=== PATIENT | female | born 1925 | race Caucasian/White ===

== ENCOUNTER 2016-07-04 13:49 | Emergency (ER) | payer MEDICARE, OTHER ==
[~2016-07-04] VITALS: Ht 149.9 cm; Wt 73.0 kg
[~2016-07-04 13:49] MED LIST: ALBU8.5H2 INHALATION; BENZ100C8 PO; LISI1TAB7 PO; METF500T4 PO; SIMV5TAB7 PO; WARF1TAB6 PO
[2016-07-04 13:52] VITALS: BP 132/66; PULSE 70; RESP 45; O2SAT 96
--- NOTE | 2016-07-04 14:06 | ED.REPORT ---
HPI-General Illness Date of Service Jul 04, 2016 ED Provider: Jose Goddard Patient is an 89 year old female on Warfarin who presents to the ED complaining of L leg swelling onset last night. Associated symptoms include increased trouble breathing and L leg weeping. Her dieretic medication was recently reduced. denies dysuria, hematuria, chest pain, or any other symptoms. Nursing Notes Stated Complaint: POSS CONGESTIVE HEART FAILURE Chief Complaint: Extremity Trauma Nursing Notes Reviewed: Yes Allergies: Coded Allergies: Penicillins (Verified Adverse Reaction, Mild, Diarrhea, 10/01/15) Scheduled Albuterol HFA (Proair HFA) 8.5 Gm Hfa.aer.ad 2 PUFFS INHALATION Q4H Benzonatate (Benzonatate) 100 Mg Capsule 100 MG PO TID Lisinopril / HCTZ 10-12.5 mg (Lisinopril / HCTZ 10-12.5 mg) 1 Each Tablet 1 EACH PO DAILY EVERY 2 DAYS Metformin (Metformin) 500 Mg Tablet 500 MG PO BID Simvastatin (Simvastatin) 5 Mg Tablet 5 MG PO HS Warfarin Sodium (Warfarin Sodium) 1 Mg Tablet 0.5 MG PO DAILY General Time Seen by MD: 14:05 Chief Complaint Other (Extremity swelling) Hx Obtained From: Patient, Daughter Sudden in Onset?: Yes Onset Occurred: Yesterday Symptom Duration: Since onset Past Medical History Past Medical History Notes: Recently moved to [place] from [place], limited medical history Past Medical History heart murmur nonhodgkins lymphoma - 16 years ago on Warfarin - pt unsure why (EKG in ED shows atrial fibrillation) Chronic Renal disease Reports: Congestive heart failure, Diabetes mellitus, Hyperlipidemia, Hypertension Past Surgical History valve replacement x2 Reports: Appendectomy, Hysterectomy Reports: Pacemaker insertion Social History Recently moved to [place] from [place] Other Social History: Good social support, Local resident Ambulatory Status Independent Review of Systems Full Review of Systems Respiratory: Reports: Shortness of breath Cardiovascular: Denies: Chest pain Female: Denies: Dysuria, Hematuria Musculoskeletal: Reports: Extremity swelling (L leg swelling, with weeping ) Complete sys rev & neg: except as marked. Physical Exam Vital Signs Vital Signs Date Time Temp Pulse Resp B/P Pulse Ox O2 Delivery O2 Flow Rate FiO2 07/04/16 13:52 36.4 70 45 132/66 96 Room Air Initial VS: Reviewed General/Constitutional: Well-developed, Well-nourished Head / Eyes: Atraumatic, Normocephalic Neck: Full range of motion Abdomen / GI: Soft, Non-tender Skin: Warm, Dry Neurologic: Alert, Oriented, Nonfocal Psychiatric: Mood/affect normal, Behavior normal, Normal thought content Rales / Rhonchi: Positive: Rales bilateral bases Lower Ext Edema: Positive: Bilateral 2+ 2+ bilateral pedal pulses Right Leg / Calf: Positive: Swelling present... Left Leg / Calf: Positive: Swelling present... Clear weeping fluid L lower leg Does not appear to be infected (no erythema, warmth, or tenderness) Re-Eval/Medical Decision Med Decision/Clinical Course Likely exacerbation of CHF. Awaiting x-ray and laboratory studies, Lasix given, care transferred to Dr. Christensen. Discharge & Departure Shift Change Sign-Out Patient Care Transferred: Yes Discussed Complaint(s): Yes Laboratory Evaluation: Ordered, not yet done Imaging Studies: Ordered, not yet done Transferred care to Dr. Christensen at 1500. Primary Impression: CHF (congestive heart failure) Referrals: OTHER,PHYSICIAN (PCP) Care Transferred to: [facility] Transferred at: 15:00 Scribe Attestation Portions of this note were transcribed by Nicolasa Carl. I, Dr. Goddard personally performed the history, physical exam and medical decision-making; I reviewed and confirmed the accuracy of the information in the transcribed note. Signed by: Nicolasa Carl 07/04/16, 1500 copies to: Dianne Lofton Timothy S DO Jul 04, 2016 14:06 NICOLASA CARL Jul 04, 2016 14:25
[2016-07-04] MEDS ORDERED: Furosemide 10 mg/mL 4 mL Inj IVPUSH ONE (14:25)
--- NOTE | 2016-07-04 15:32 | DRSVH ---
PROCEDURE: X-RAY CHEST ONE VIEW, PORTABLE ([id number]) INDICATIONS: dyspnea TECHNIQUE: One view of the chest was acquired. COMPARISON: [facility], , CHEST 2 VIEW, 05/13/2016, 10:10. FINDINGS: Surgical changes and devices: Postsurgical changes compatible with mitral and aortic valve re A is stable. placement noted. Median sternotomy wires noted. Lungs and pleura: No pleural effusions or pneumothorax. Lungs are clear. Mediastinum: Mediastinal contours appear normal. Heart size is normal. Bones and chest wall: No suspicious bony lesions. Overlying soft tissues appear unremarkable. IMPRESSION: No acute cardiopulmonary disease process. by: Jennifer Thurston MD, PhD on 07/04/2016 at 15:30 Approved by: Jennifer Thurston MD, PhD on 07/04/2016 at 15:30
[2016-07-04 15:38] LABS: BASOPHILS % (AUTO) 0.9 % (0-3); EOSINOPHILS % (AUTO) 2.8 % (0-5); MONOCYTES % (AUTO) 16.4 % (4-12); Mean Corpuscular Hemoglobin 28.4 pg (27.0-35.0); Mean Corpuscular Volume 90.3 fL (81-100); NEUTROPHILS % (AUTO) 71.6 % (40-74); Platelet Count 196 bil/L (150-400)
[2016-07-04 16:07] LABS: Magnesium 1.9 mg/dL (1.6-2.6)
[2016-07-04 16:13] LABS: TROPONIN T < 0.010 ug/L (0.0-0.011)
[2016-07-04 16:15] LABS: INR 3.61 ratio
[2016-07-04] MEDS ORDERED: FURO-129 PO (17:09)
[2016-07-04 18:14] VITALS: BP 150/73; PULSE 98; RESP 20
[2016-07-04 18:31] VITALS: BP 156/73; PULSE 98
== END 2016-07-04 17:40 | disposition home or self-care (01) ==
LOC: SED 13:49
DX: I50.9 Heart failure, unspecified (principal); M79.89 Other specified soft tissue disorders; E11.9 Type 2 diabetes mellitus without complications; E78.5 Hyperlipidemia, unspecified; I10 Essential (primary) hypertension; Z79.01 Long term (current) use of anticoagulants; Z95.0 Presence of cardiac pacemaker; Z79.84 Long term (current) use of oral hypoglycemic drugs; Z88.0 Allergy status to penicillin
CPT/HCPCS: 36415; 71010; 80053; 83735; 83880; 84484; 85025; 85610; 96374; 99285; J1940

== ENCOUNTER 2016-07-24 17:38 | Observation (INO) | payer MEDICARE, OTHER ==
[~2016-07-24] VITALS: Ht 152.4 cm; Wt 68.9 kg
[~2016-07-24 17:38] MED LIST changes: +FURO-129 PO
[2016-07-24 17:43] VITALS: BP 174/46; PULSE 70; RESP 20; O2SAT 96
--- NOTE | 2016-07-24 18:07 | ED.REPORT ---
HPI-Dyspnea / Wheezing Date of Service Jul 24, 2016 ED Provider: Jojo Grier MD This is an 89 year old female with a history of CHF, DM, HTN, hyperlipidemia, on Lasix, anticoagulated on warfarin brought to the ED by EMS complaining of shortness of breath that began 2 weeks ago. Dyspnea is progressively worsening. Reports that Lasix dose was increased 1.5 weeks ago. Associated symptoms include lower extremity swelling, urinary retention, non-productive cough, malaise, constipation, and melena. Denies rhinorrhea, chest pain, fever, chills , abdominal pain, nausea, or vomiting. Denies recent trauma, injury, or surgeries. Denies history of PE. Nursing Notes Stated Complaint: RESPIRATORY DISTRESS Chief Complaint: Respiratory Complaints Nursing Notes Reviewed: Yes Allergies: Coded Allergies: Penicillins (Verified Adverse Reaction, Mild, Diarrhea, 10/01/15) Scheduled ([docusate sodium ]) 50 MG PO DAILY Albuterol HFA (Proair HFA) 8.5 Gm Hfa.aer.ad 2 PUFFS INHALATION Q4H Aspirin Chew (Aspirin Chew) 81 Mg Chew 81 MG PO DAILY Benzonatate (Benzonatate) 100 Mg Capsule 100 MG PO TID Furosemide (Lasix) 20 Mg Tablet 20 MG PO DAILY Guaifenesin (Mucinex) 600 Mg Tablet.er 600 MG PO BID Lisinopril / HCTZ 10-12.5 mg (Lisinopril / HCTZ 10-12.5 mg) 1 Each Tablet 1 EACH PO DAILY EVERY 2 DAYS Metformin (Metformin) 500 Mg Tablet 500 MG PO BID Metoprolol Tartrate (Metoprolol Tartrate) 25 Mg Tablet 25 MG PO BID Multivitamin (Multi Vitamin Daily) 1 Each Tablet 1 EACH PO DAILY Simvastatin (Simvastatin) 10 Mg Tablet 10 MG PO HS Torsemide (Torsemide) 10 Mg Tablet 10 MG PO DAILY Warfarin Sodium (Warfarin Sodium) 5 Mg Tablet 7.5 MG PO DIRECTED warfarin 5 mg tab, 1.5 tabs (7.5mg) PO on Tuesday and Tuesday. Warfarin Sodium (Warfarin Sodium) 5 Mg Tablet 5 MG PO DIRECTED Warfarin 5 mg tab PO 5 days a week, (, TUE, , Sat, Sun) Scheduled PRN Albuterol Sulfate (Ventolin HFA Inhaler) 200 Puff/18 Gm Inhaler 1 PUFF INH Q4 PRN PRN For Wheezing Albuterol Sulfate (Ventolin HFA Inhaler) 200 Puff/18 Gm Inhaler 1 PUFF INH Q4 PRN PRN For Wheezing Bisacodyl (Dulcolax) 5 Mg Tablet.dr 5 MG PO DAILY PRN PRN For Constipation Miscellaneous Medications Acetaminophen (Acetaminophen) 325 Mg Capsule 325 MG PO Ascorbate Calcium (Vitamin C) 500 Mg Tablet 500 MG PO Benzonatate (Benzonatate) 200 Mg Capsule 200 MG PO Calcium Carbonate/Vitamin D3 (Calcium 600 + Vit D3 400 Tab) 600 Mg-400 Tablet 1 EACH PO Cholecalciferol (Vitamin D3) (Vitamin D3) 1,000 Unit Tab.chew 1,000 UNIT PO Diphenhydramine HCl (Children's Benadryl Allergy) 12.5 Mg Tab.chew 12.5 MG PO Linagliptin (Tradjenta) 5 Mg Tablet 5 MG PO Losartan Potassium (Losartan Potassium) 25 Mg Tablet 25 MG PO Melatonin (Melatonin) 3 Mg Tablet 3 MG PO Polyethylene Glycol 8000 (Polyethylene Glycol) 500 Gm Powder 500 GM MC General Time Seen by MD: 18:06 Chief Complaint Shortness of breath Hx Obtained From: Patient Arrived By: Ambulance Sudden in Onset?: Yes Onset Occurred: More than a week ago... (2 weeks) Symptom Duration: Since onset Severity: Current: Mild Pertinent Negative: Pt denies other symptoms Recent Healthcare: No recent doctor visit, No recent hospitalization Similar Sx Previous: No Past Medical History Past Medical History Notes: Recently moved to [place] from [place], limited medical history Past Medical History heart murmur nonhodgkins lymphoma - 16 years ago on Warfarin - pt unsure why (EKG in ED shows atrial fibrillation) Chronic Renal disease Reports: Congestive heart failure, Diabetes mellitus, Hyperlipidemia, Hypertension Past Surgical History valve replacement x2 Reports: Appendectomy, Hysterectomy Reports: Pacemaker insertion Smoking History Never Smoker Social History Recently moved to [place] from [place] Other Social History: Good social support, Local resident Ambulatory Status Independent Review of Systems Constitutional: Reports: Malaise, Denies: Chills, Fever Ears / Nose / Throat: Denies: Sore throat Respiratory: Reports: Non-productive cough, Shortness of breath Musculoskeletal: Denies: Back pain, Extremity pain, Neck pain Complete sys rev & neg: except as marked. GI: Denies: Abdominal pain, Nausea, Vomiting Female: Denies: Dysuria Male: Reports Urination decreased Neurologic: Denies: Headache Physical Exam Initial Vital Signs Vital Signs (First) Date Time Temp Pulse Resp B/P Pulse Ox O2 Delivery O2 Flow Rate FiO2 07/24/16 17:43 36.5 70 20 174/46 96 Room Air Initial VS: Reviewed Head / Eyes: Atraumatic, Normocephalic, PERRL ENT: Mucous membranes moist, Conjunctiva normal, No scleral icterus Abdomen / GI: Soft, Non-tender, No guarding, No rebound, No distention Skin: Warm, Dry, No cyanosis Neurologic: Alert, Oriented, Nonfocal Psychiatric: Mood/affect normal, Behavior normal, Normal thought content General/Constitutional: Awake, Alert Neck: Supple, No meningismus, Full range of motion, No adenopathy, No swelling , Non-tender Respiratory / Chest: No respiratory distress, No rhonchi, No wheezing Diminished Breath Sounds: Positive: Decreased R Cardiovascular: Heart rate NL, No rubs Heart Sounds / Murmur: Positive: Murmur present... (IV/) Lower Ext Edema: Positive: Bilateral 2+, Pitting Skin: No rash Stage I sacral decubitus ulcer Rectum / Perineum: No fissures, No hemorrhoids Heme negative brown stool. Interpretation & Diagnostics Lab Results Interpretation Result Diagram: 07/24/16182407/24/161824 Test 07/24/16 18:25 07/24/16 19:26 White Blood Count 7.1th/mm3 (3.8-10.1) Red Blood Count 4.46mil/mm3 (3.90-5.20) Hemoglobin 12.2g/dL (12.0-15.6) Hematocrit 38.4% (35.0-46.0) Mean Corpuscular Volume 86.1fL (81-100) Mean Corpuscular Hemoglobin 27.4pg (27.0-35.0) Mean Corpuscular Hemoglobin Concent 31.8% (32.0-37.0) Red Cell Distribution Width 14.2% (12.3-15.4) Platelet Count 220bil/L (150-400) Neutrophils (%) (Auto) 70.4% (40-74) Lymphocytes (%) (Auto) 10.2% (14-46) Monocytes (%) (Auto) 16.3% (4-12) Eosinophils (%) (Auto) 2.3% (0-5) Basophils (%) (Auto) 0.7% (0-3) Prothrombin Time 36.8sec (8.1-12.5) Prothromb Time International Ratio 3.36ratio Sodium Level 132mEq/L (134-144) Potassium Level 4.0mEq/L (3.5-5.2) Chloride Level 93mEq/L (97-108) Carbon Dioxide Level 24mmol/L (18-29) Blood Urea Nitrogen 21mg/dL (8-27) Creatinine 1.26mg/dL (0.57-1.00) Estimat Glomerular Filtration Rate 57mL/min (>59) Glucose Level 116mg/dL (60-99) Calcium Level 9.7mg/dL (8.5-10.1) Magnesium Level 1.9mg/dL (1.6-2.6) Total Bilirubin 1.4mg/dL (0.0-1.2) Aspartate Amino Transf (AST/SGOT) 34U/L (0-50) Alanine Aminotransferase (ALT/SGPT) 20U/L (0-32) Alkaline Phosphatase 80U/L (25-165) Troponin T < 0.010ug/L (0.0-0.011) Pro-B-Type Natriuretic Peptide 3756pg/mL (0-738) Total Protein 6.7g/dL (6.4-8.4) Albumin 3.8g/dL (3.4-5.0) Lipase 54U/L (13-60) Hold Urban Top Tube Received (Received) Urine Color Yellow (YELLOW) Urine Appearance Clear (CLEAR,HAZY) Urine pH 5.5 (5.0-8.0) Urine Specific Wesley 1.015 (1.003-1.035) Urine Protein Negativemg/dL (NEG,TRACE) Urine Glucose (UA) Negativemg/dL (NEGATIVE) Urine Ketones Negativemg/dL (NEGATIVE) Urine Occult Blood Trace (NEGATIVE) Urine Nitrite Negative (NEGATIVE) Urine Bilirubin Negative (NEGATIVE) Urine Urobilinogen Normalmg/dL (NORMAL) Urine Leukocyte Esterase Negative (NEGATIVE) Urine RBC 0-2/hpf (0-2) Urine WBC 0-5/hpf (0-5) Urine Epithelial Cells Few/hpf (NONE-MOD) Urine Crystals Amorphous urates (NONE Urine Bacteria None/hpf (NONE-FEW) Urine Hyaline Casts None/lpf (NONE) Urine Granular Casts None seen (NONE SEEN) Urine Waxy Casts None seen (NONE SEEN) Urine Red Blood Cell Casts None seen (NONE SEEN) Urine White Blood Cell Casts None seen (NONE SEEN) Urine Mucus None seen (None Seen) Urine Trichomonas None seen (NONE SEEN) Urine Yeast None (NONE SEEN) Urine Culture Reflexed Not indicated Hold Urine Received (Received) ECG Interpretation ECG Interpretation: atrial fibrillation at a rate of 70 v-paced unchanged from prior Time: 18:12 Interpreted by: ED physician X-Ray Chest Interpretation Chest Xray Interpretation: IMPRESSION: Bilateral pleural effusions with bibasilar opacities. The latter may represent developing pneumonia versus focal edema. Dictated by: Dayanara Mullen M.D. on 07/24/2016 at 18:05 Approved by: Dayanara Mullen M.D. on 07/24/2016 at 18:05 Re-Eval/Medical Decision Med Decision/Clinical Course 89-year-old female with past medical history of heart failure here with worsening shortness of breath and paroxysmal internal dyspnea. Differential diagnosis includes but is not limited to CHF exacerbation versus pneumonia versus pleural effusion versus influenza versus GI bleed. Patient has heme- negative brown stool, ruling out GI bleed. Her BNP is mildly elevated. However , when patient is walked, her oxygen saturation drops to 80%. She was given Lasix in the emergency department, and admitted to the hospitalist service for likely CHF exacerbation. Her chest x-ray is concerning for bilateral pleural effusions, right worse than left. At this time, I do not feel she has pneumonia , given lack of other symptoms. I have not treated her for pneumonia. She is aware and amenable to admission at this time Re-Evaluation/Progress : Time of Eval: 20:01 Re-Evaluation/Progress Note: O2 sats to 80% on road test. Discussed plan for admission, pt understands and agrees with plan, all questions addressed. Consultation : Referral / Consult Name: Stefanie Haney DO Consulted With: Hospitalist Call Returned at: 20:08 Grid Maker: Accepts admit Counseled Regarding: Diagnosis, Lab results, Need for follow-up, Need for admission Discharge & Departure Impression: Primary Impression: CHF exacerbation Additional Impression: Pleural effusion Disposition: ADMITTED TO HOSPITAL Discharge Condition All VS Reviewed: Yes Condition: Stable Referrals: Dianne Lofton (PCP) Scribe Attestation Portions of this note were transcribed by Marck Dumont. I, Dr. Grier personally performed the history, physical exam and medical decision-making; I reviewed and confirmed the accuracy of the information in the transcribed note. Signed by: mckenna Lucas. 07/24/2016, 20:00. Jojo Grier MD Jul 24, 2016 18:07 MARCK DUMONT Jul 24, 2016 18:10
--- NOTE | 2016-07-24 18:11 | DRSVH ---
PROCEDURE: X-RAY CHEST ONE VIEW, PORTABLE ([id number]) INDICATIONS: Shortness of breath TECHNIQUE: One view of the chest was acquired. COMPARISON: [facility], CR, XR CHEST 1VW (PORTABLE), 07/04/2016, 14:30. FINDINGS: Surgical changes and devices: Pacemaker and sternal wires are present, as well as valve replacement. Lungs and pleura: Bibasilar and retrocardiac opacities are present including costophrenic angle blunt ing. Mediastinum: Mediastinal contours appear normal. Heart size is normal. Bones and chest wall: No suspicious bony lesions. Overlying soft tissues appear unremarkable. IMPRESSION: Bilateral pleural effusions with bibasilar opacities. The latter may represent developin g pneumonia versus focal edema. Dictated by: Dayanara Mullen M.D. on 07/24/2016 at 18:05 Approved by: Dayanara Mullen M.D. on 07/24/2016 at 18:05
[2016-07-24 18:50] LABS: BASOPHILS % (AUTO) 0.7 % (0-3); EOSINOPHILS % (AUTO) 2.3 % (0-5); MONOCYTES % (AUTO) 16.3 % (4-12); Mean Corpuscular Hemoglobin 27.4 pg (27.0-35.0); Mean Corpuscular Volume 86.1 fL (81-100); NEUTROPHILS % (AUTO) 70.4 % (40-74); Platelet Count 220 bil/L (150-400)
[2016-07-24 19:07] LABS: INR 3.36 ratio
[2016-07-24 19:25] LABS: Magnesium 1.9 mg/dL (1.6-2.6)
[2016-07-24 19:38] LABS: TROPONIN T < 0.010 ug/L (0.0-0.011)
[2016-07-24] MEDS ORDERED: Furosemide 10 mg/mL 4 mL Inj IVPUSH ONE (20:00)
[2016-07-24] MEDS ORDERED: Alum-Mag Hydrox-Simeth 30 mL Suspension PO PRN (20:25)
[2016-07-24] MEDS ORDERED: Polyethylene Glycol (PEG) 17 Gm Powder PO PRN (20:25)
[2016-07-24] MEDS ORDERED: Ondansetron 2 mg/mL 2 mL Inj IVPUSH PRN (20:25)
--- NOTE | 2016-07-24 21:15 | NUR ---
Admit note Pt walked from stretcher to bed under own power, arrived with all personal items with her. Pt alert and oriented x4, pleasant and cooperative. ER nurse came to room to give lasix, lasix again ordered later in evening. Pt has IV in L hand, patent. Will monitor, let room with call light at bedside.
[2016-07-24] MEDS ORDERED: Glucose 40% Oral Gel 15 Gm Tube PO PRN (21:20)
[2016-07-24 21:30] VITALS: BP 117/71; PULSE 72; RESP 22; O2SAT 98
[2016-07-24] MEDS: Insulin LISPRO 300 Unit/3 mL Inj SUBQ SCH (22:00)
[2016-07-24 22:19] LABS: APPEARANCE,URINE CLEAR (CLEAR,HAZY); COLOR,URINE YELLOW (YELLOW); OCCULT BLOOD,URINE TRACE (NEGATIVE); PH,URINE 5.5 (5.0-8.0); UROBILINOGEN,URINE NORMAL (NORMAL)
[2016-07-24] MEDS ORDERED: Furosemide 10 mg/mL 2 mL Inj IVPUSH ONE (22:40)
[2016-07-24 22:44] VITALS: BP 120/75; PULSE 69; O2SAT 98
--- NOTE | 2016-07-24 22:47 | PCM.HPMED ---
Subjective Date of Service Jul 24, 2016 Primary Provider: Admitting Physician: Stefanie Haney DO Primary Care Physician: Dianne Lofton Attending Physician: Stefanie Haney DO Admit Status: From the Emergency Department Chief Complaint: Shortness of breath History of Present Illness: Patient is an 89 year old female with a history of CHF on Lasix, DM, HTN, hyperlipidemia, and afib anticoagulated on warfarin brought to the ED by EMS complaining of shortness of breath that began 2-3 weeks ago and progressively worsening. She reports significant shortness of breath with activity, but denies significant orthopnea or paroxysmal nocturnal dyspnea. She reports that her Lasix was changed to torsemide a few weeks ago. Her PCP is Dianne Lofton in [place]. She also reports edema, urinary retention, non-productive cough, malaise, constipation. Denies UR symptoms such as sinus congestion, sore throat , or rhinorrhea. Denies chest pain, fever, chills, abdominal pain, nausea, vomiting, or diarrhea. Denies recent trauma, injury, or surgeries. Denies history of pneumonia or PE. She reports slightly darker stools lately but her stool was brown and guaiac negative in the ED. She states her last echocardiogram was in [facility] in [place] about 5 years ago. In the ED, O2 sat was 96 on room air but desatted to 80s on road test. Pt was afebrile with HR 72. WBC 7.1, Hb 12.2, Na 132, Cr 1.26, bilirubin 1.4. INR was 3.36. Review of Systems: Comprehensive review of systems conducted and was negative except for the pertinent positives listed above. Allergies Coded Allergies: Penicillins (Verified Adverse Reaction, Mild, Diarrhea, 10/01/15) Home Medications Aspirin 81 mg daily Calcium carbonate 600/400 mg daily Diphenhydramine 12.5 mg hs for sleep Docusate 50 mg daily Losartan 25 mg daily Vitamin D3 Metformin 500 mg BID Metoprolol tartrate 25 mg BID Melatonin 3 mg qhs Multivitamin Simvastatin 10 mg daily Torsemide 10 mg daily Tradjenta 5 mg daily Vitamin C Ventolin Warfarin 5 mg Tu/Thur/Sat/Sun Warfarin 7.5 mg Mon/Tue/Tue PMH History of afib on Warfarin Chronic Renal disease Congestive heart failure Diabetes mellitus Hyperlipidemia Hypertension 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 Heart murmur Surgical History valve replacement x2 Appendectomy Hysterectomy Pacemaker insertion Family History Father - Smoker, lung cancer Sister - Smoker, COPD Social History Hx Alcohol Use: No Hx Substance Use: No Hx Tobacco Use: No Smoking Status: Never Smoker Exam Vital Signs Vital Sign - Last Date Time Temp Pulse Resp B/P Pulse Ox O2 Delivery O2 Flow Rate FiO2 07/24/16 17:43 36.5 70 20 174/46 96 Room Air Exam General: Alert, Oriented X3, Cooperative, Mild respiratory distress; talking in full sentences but some mild accessory muscle use. Head: Normocephalic, atraumatic. External ears normal. Eyes: PERRLA, EOMI. Anicteric sclerae. Mouth: Mouth Normal, Mucous Membranes Moist/[place] Neck: Neck supple with full range of motion. No JVD. Chest & Lungs: Bilateral crackles at bases. Cardiovascular: Irregularly irregular, Normal S1, Normal S2, Systolic murmur at right sternal border Abdomen: Non-tender, Non-distended, No masses, Normoactive bowel tones, Soft Musculoskeletal: Normal Range of Motion Extremities: Significant bilateral pitting edema in legs. Bilateral leg tenderness. Neurological: Grossly Neurologically Intact, Normal Speech Lab and Diagnostics Result Diagram: 07/24/16182407/24/161824 X-Rays, CTs and MRIs [facility] Diagnostic Imaging Department [place], [place] [id number] Patient Name: FLEX GRANT MR#: [id number] [place] [facility] [place] Phys: DOC, ED Date of Service: 07/24/161751 PROCEDURE: X-RAY CHEST ONE VIEW, PORTABLE ([id number]) INDICATIONS: Shortness of breath TECHNIQUE: One view of the chest was acquired. COMPARISON: [facility], CR, XR CHEST 1VW (PORTABLE), 07/04/2016, 14: 30. FINDINGS: Surgical changes and devices: Pacemaker and sternal wires are present, as well as valve replacement. Lungs and pleura: Bibasilar and retrocardiac opacities are present including costophrenic angle blunting. Mediastinum: Mediastinal contours appear normal. Heart size is normal. Bones and chest wall: No suspicious bony lesions. Overlying soft tissues appear unremarkable. IMPRESSION: Bilateral pleural effusions with bibasilar opacities. The latter may represent developing pneumonia versus focal edema. Dictated by: Dayanara Mullen M.D. on 07/24/2016 at 18:05 Approved by: Dayanara Mullen M.D. on 07/24/2016 at 18:05 Assessment & Plan Patient is an 89 year old female with a history of CHF on Lasix, DM, HTN, hyperlipidemia, and afib anticoagulated on warfarin brought to the ED by EMS complaining of shortness of breath. Admitted for acute on chronic CHF exacerbation. 1. Acute on chronic CHF exacerbation. Present on admission. - Pt has history of CHF. Recently switched Lasix 20 mg to torsemide 10 mg, but pt feels this has not helped. Last echo about 5 years ago at [facility]. CXR shows bibasilar and retrocardiac opacities, with costophrenic angle blunting. BNP 3756 on admission, pt reports SOB on exertion and desats during road test. 40 mg IV Lasix given on admission. PE unlikely but she complains of bilateral leg tenderness, will rule out DVT with US. - Will give Lasix 20 mg IV, further diuresis based on renal function - Continue home ASA, metoprolol - Echocardiogram in AM - Monitor on telemetry - Daily standing weights - I/O - Heart healthy diet - Procalcitonin ordered to rule out infectious process - Bilat leg US in AM - Request records in AM from [facility] about previous echo 2. Acute kidney injury with CKD. Present on admission. - Pt has history of CKD, baseline Cr appears to be 1 - 1.05. Cr was 1.26 today. Possibly secondary to poor renal perfusion related to her CHF exacerbation. Will attempt to diurese gently and monitor creatinine. - Avoid nephrotoxic medications - Hold losartan - Diurese cautiously - Monitor CMP 3. Atrial fibrillation, chronic. Present on admission. - EKG showed atrial fibrillation, rate 72. - Monitor on telemetry - Continue home warfarin 4. Bilateral pleural effusions, acute. Present on admission. - CXR shows bilat pleural effusions. Likely related to CHF. - Repeat CXR if her respiratory status changes significantly. 5. Hyperbilirubinemia, chronic. Present on admission. - Pt had bilirubin of 1.4 on admission. Previous readings in September 2015 showed bili 1.7 - 2. LFTs and alk phos normal. - Ordered direct bilirubin 6. History of valve replacement - Pt had 2 valve replacements, she remembers an aortic valve replacement but cannot remember the second. INR was 3.36 on admission. If she has a mitral valve replacement, she would be within therapeutic range (2.5 - 3.5). - Request records in AM - Continue warfarin per pharmacy - Continue to monitor INR 7. Diabetes mellitus Type 2. - Pt BG on admission 116. - Hold metformin and Tradjenta - A1c ordered - Humalog low dose correctional scale 8. Hyperlipidemia - Simvastatin continued 9. Insomnia, chronic - Continue home melatonin. hold diphenhydramine (Beers criteria / list) 10. Other Chronic Conditions - Hypertension - 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 Resuscitation Status: DNR/DNI:Do Not Resuscitate/Intubate Attending Statement The patient was seen and examined together with house staff on 07/25/2016 and I agree with the history, exam and plan as outlined in the note above. Favio Rosado Jul 24, 2016 21:52 Stefanie Haney DO Jul 25, 2016 01:09
[2016-07-24] MEDS ORDERED: ASPI81TA3 PO (22:50)
[2016-07-24] MEDS ORDERED: CALC-1034 PO (22:59)
[2016-07-24] MEDS ORDERED: DIPH25CA6 PO (22:59)
[2016-07-24] MEDS ORDERED: DIPH-847 PO (22:59)
[2016-07-24] MEDS ORDERED: docusate sodium PO (23:12)
[2016-07-24] MEDS ORDERED: LOSA1TAB70 PO (23:14)
[2016-07-24] MEDS ORDERED: LOSA25TA21 PO (23:18)
[2016-07-24] MEDS ORDERED: CHOL10008 PO (23:20)
[2016-07-24] MEDS ORDERED: WARF5TAB7 PO ×2 (23:54)
[2016-07-24] MEDS ORDERED: LINA5TAB PO (23:54)
[2016-07-24] MEDS ORDERED: ACET325C PO (23:54)
[2016-07-24] MEDS ORDERED: GUAI600T2 PO (23:54)
[2016-07-24] MEDS ORDERED: BISA-67 PO (23:54)
[2016-07-24] MEDS ORDERED: ALBU18HF INH ×2 (23:54)
[2016-07-24] MEDS ORDERED: MELA3TAB35 PO (23:54)
[2016-07-24] MEDS ORDERED: TORS10TA5 PO (23:54)
[2016-07-24] MEDS ORDERED: BENZ200C44 PO (23:54)
[2016-07-24] MEDS ORDERED: METO25TA6 PO (23:54)
[2016-07-24] MEDS ORDERED: SIMV10TA4 PO (23:54)
[2016-07-24] MEDS ORDERED: ASCO-294 PO (23:54)
[2016-07-24] MEDS ORDERED: POLY500P23 MC (23:54)
[2016-07-25] VITALS (8 sets, daily range): BP systolic 120–144; BP diastolic 72–84; PULSE 67–75; RESP 22–24; O2SAT 97–98
[2016-07-25] MEDS ORDERED: MULT-1018 PO
[2016-07-25] MEDS ORDERED: Heparin 5,000 Unit/mL Inj SUBQ SCH (00:30)
--- NOTE | 2016-07-25 05:47 | NUR ---
V-tach Telemetry called with a run of 5 V-tach, checked on pt. Pt resting well no s/s, pt commented she felt better than ever. Will continue to monitor.
[2016-07-25 06:07] LABS: BASOPHILS % (AUTO) 0.6 % (0-3); EOSINOPHILS % (AUTO) 1.9 % (0-5); MONOCYTES % (AUTO) 17.2 % (4-12); Mean Corpuscular Hemoglobin 27.7 pg (27.0-35.0); Mean Corpuscular Volume 85.7 fL (81-100); NEUTROPHILS % (AUTO) 73.5 % (40-74); Platelet Count 202 bil/L (150-400)
[2016-07-25 06:28] LABS: Bilirubin, Direct 0.6 mg/dL (0.0-0.3)
[2016-07-25 06:37] LABS: INR 3.05 ratio
[2016-07-25] MEDS: Insulin LISPRO 300 Unit/3 mL Inj SUBQ SCH ×4 (07:40→20:27)
[2016-07-25] MEDS ORDERED: DOCU-41 PO (09:10)
[2016-07-25] MEDS ORDERED: ASCO500C6 PO (09:10)
[2016-07-25] MEDS ORDERED: DIPH25CA6 PO (09:10)
[2016-07-25] MEDS ORDERED: POLY17PO2 PO (09:10)
[2016-07-25] MEDS ORDERED: METF500T7 PO (09:10)
--- NOTE | 2016-07-25 09:40 | DRSVH ---
PROCEDURE: US VENOUS LEG DUPLEX BILATERAL INDICATIONS: LEG SWELLING TECHNIQUE: Real-time imaging, as well as color and pulse Doppler interrogation, were performed of the deep veins of both legs from the inguinal ligament to the popliteal fossa. COMPARISON: None. FINDINGS: Occlusive filling defect is visualized within the distal left superficial femoral artery an d popliteal artery suggesting nonocclusive thrombus. The deep veins of the left lower extremity have a normal sonographic appearance. Of note, augmentatio n was not performed because the patient could not tolerate any compressibility. There is soft tissue edema throughout both lower extremities. There is a 4.6 x 2.8 x 1.5 cm left popliteal fluid collection which likely represents a small Orourke's cyst. IMPRESSION: 1. Probable nonocclusive thrombus within the right distal superficial femoral vein and popliteal vein . 2. Left Orourke's cyst. 3. Bilateral lower extremity edema. Dictated by: Sandra Moran M.D. on 07/25/2016 at 9:35 Approved by: Sandra Moran M.D. on 07/25/2016 at 9:38
--- NOTE | 2016-07-25 14:04 | DRSVH ---
[facility] [address] [place] [address] Echocardiogram Report Name: FLEX GRANT MStudy Date: Height: 60 in Hospital Exam Location: [facility] Weight: 161 lb Gender: Female BSA: 1.7 m2 : 1925 Age: 89 yrs BP: 144/84 mmHg Reason For Study: CHF EXACERBATION Ordering Physician: HOSPITALIST [facility] Performed By: Nikolay Hauser Referring Physician: Bina FARRELL Interpretation Summary The left ventricular cavity is small. There is mild-moderate concentric left ventricular hypertrophy. The ejection fraction is estimated to be >80%. The right ventricle is moderately dilated. There is a pacemaker lead in the right ventricle. The right ventricular systolic pressure is estimated at 59 mmHg assuming a right atrial pressure of 15 mm Hg. The IVC is dilated (diameter is greater than 2.1 cm) and it collapses less than 50% with a sniff. This suggests a high right atrial pressure of 15 mm Hg. There is a bioprosthetic mitral valve. The prosthetic mitral valve function is abnormal. The mean gradient of the mitral valve is 6.2 mmHg. There is severe mitral annular calcification. There is a bioprosthetic aortic valve. The prosthetic aortic valve function is normal. There is moderate to severe tricuspid regurgitation. There is severe biatrial enlargement. There is a moderate right-sided pleural effusion. A membranous ventricular septal defect is present. The ventricular septal defect is small. No other echocardiographic abnormalities seen. Compared with the prior exam 05/13/2016, the RV pressure is higher and as a result, the VSD appears less. No other significant changes noted. Procedure: A two-dimensional transthoracic echocardiogram with color flow and Doppler was performed. The study quality was technically adequate. Comparison is made with the echocardiogram of 05/13/16. The patient has a paced rhythm. Left Ventricle: There is mild-moderate concentric left ventricular hypertrophy. The left ventricular cavity is small. A membranous ventricular septal defect is present. The ventricular septal defect is small. The ejection fraction is estimated to be >80%. There are no focal wall motion abnormalities. Flattened septum is consistent with RV pressure/volume overload. Diastolic function could not be accurately assessed due to confounding valvular disease. Right Ventricle: The right ventricle is moderately dilated. There is a pacemaker lead in the right ventricle. The right ventricular systolic function is normal. Atria: There is severe biatrial enlargement. The interatrial septum is intact with no evidence for an atrial septal defect. Mitral Valve: There is a bioprosthetic mitral valve. The prosthetic mitral valve is well-seated. There is severe mitral annular calcification. The prosthetic mitral valve function is abnormal. The mean gradient of the mitral valve is 6.2 mmHg. There is mild to moderate mitral stenosis. There is trace mitral regurgitation. Aortic Valve: There is a bioprosthetic aortic valve. The gradients through the prosthetic aortic valve are within the normal range for this type of valve. The prosthetic aortic valve function is normal. There is trace aortic regurgitation. Tricuspid Valve: The tricuspid annulus is dilated. There is malcoapatation of the TV leaflets. There is moderate to severe tricuspid regurgitation. The right ventricular systolic pressure is estimated at 59 mmHg assuming a right atrial pressure of 15 mm Hg. Pulmonic Valve: The pulmonic valve is normal in structure and function. There is trace pulmonic regurgitation. Great Vessels: The aortic root is normal size. The dimensions of the ascending aorta are normal. The pulmonary artery is normal size. The IVC is dilated (diameter is greater than 2.1 cm) and it collapses less than 50% with a sniff. This suggests a high right atrial pressure of 15 mm Hg. Pericardium/ Pleura There is no pericardial effusion. There is a moderate right-sided pleural effusion. MMode/2D Measurements & Calculations LVIDd: 4.2 cm LA dimension: 4.2 cm RA long axis LVOT diam LVIDs: 2.7 cm IVC diam: 2.2 cm FS: 36.7 % RA area Ao root diam EPSS: 0.89 cm IVSd: 1.0 cm : 27.8 cm Aortic Jxn LVPWd: 1.4 cm RA vol : 122.ml asc Aorta RA Diam: 2.5 cm : 71.8 mm2 LV singleton. diameter/BSA LV sys. diameter/BSA RVD1 (basal) RVD2 (mid) (cm/m^2): 2.5 (cm/m^2): 1.6 : 4.1 cm Doppler Measurements & Calculations Ao V2 max: 212.1 cm/secMV E max mio MV E/A: 1.8 TR max mio Ao max P.0 mmHg : 182.7 cm/sec Med Peak E' Mio : 330.7 cm/sec Ao mean P.5 mmHg MV A max mio TR max PG LVOT Max Mio : 99.6 cm/sec E/E' med: 47.8 : 43.7 mmHg : 110.1 cm/sec MVA(VTI): 1.5 cm2 MV A dur PA V2 max GIOVANNI(I,D): 1.6 cm : 0.17 sec : 69.9 cm/sec sev ratio: 0.48 PA mean PG PA Accel Time : 0.07 sec MV V2 mean Ao V2 mean LV V1 max PG PA V2 mean : 119.7 cm/sec : 137.4 cm/sec : 49.6 cm/sec MV mean P.2 mmHg Ao V2 VTI: 44.7 cmLV V1 VTI PA pr(Accel) MV V2 VTI: 49.6 cm GIOVANNI(V,D): 1.8 cm2 : 21.5 cm : 41.6 mmHg MV dec time: 0.33 sec GIOVANNI indexed to BSA (cm^2/m^2): 0.95 Reading Physician:02:03 PM
--- NOTE | 2016-07-25 16:50 | NUR ---
Social Work: Initial Assessment Data: Pt is an 89 y/o female admitted for CHF exacerbation. Pt's PCP is Dr Lofton, pt's insurance is Medicare [employer] supp. EMR reviewed. CLICKER OPERATOR met with pt at bedside, role explained. Pt states that she lives at [facility] with her spouse. She reports that her daughter is a good support person to call, listed as NOK. She states that she is her DPOA, CLICKER OPERATOR requested paperwork for hospital. Pt states that she does not drive, has no history of HH or SNF, no LTC or VA benefits, and is not a caregiver. CLICKER OPERATOR called [facility] and confirmed pt is a resident there. They state she will require an assessment before returning and that ROSA Nelson will call CLICKER OPERATOR with a time that she will be at hospital on 07/25. CLICKER OPERATOR will continue to follow. Assessment: Pt from [facility]. Plan: Pt will be assessed by [facility] on 07/26 by ROSA Nelson. Pt will likely return to [facility] via POV with daughter. CLICKER OPERATOR will continue to follow. TERESA Purdy Addendum: 07/25/16 at 1657 by MICHAEL ARRIAGA Amended: Links added.
--- NOTE | 2016-07-25 17:44 | PCM.PNMED ---
Subjective Date of Service Jul 25, 2016 Subjective No overnight events. Patient responded appropriately to lasix. Net urine is 2600cc. Today, patient reports feeling better. She still uses 2L O2 however. Patient remains to be obs status. Torsemide restarted at higher dose and will be monitored. Exam Vital Signs Vital Sign - Last Date Time Temp Pulse Resp B/P Pulse Ox O2 Delivery O2 Flow Rate FiO2 07/25/16 15:56 Supplement Oxygen 07/25/16 11:07 36.6 70 22 120/84 97 2.00 Intake and Output 07/24/16 07/24/16 07/25/16 Cumulative From/Thru 15:00 23:00 07:00 07/24/16 21:30 - 07/25/16 06:34 Intake Total 0 ml 0 ml Output Total 2600 ml 2600 ml Balance -2600 ml -2600 ml Intake Oral 0 ml 0 ml Output Urine Total 2600 ml 2600 ml # Bowel Movements 0 0 Exam Gen: No acute distress HEENT: Pupils equal, round, and reactive to light and accommodation. Anicteric sclerae, moist conjunctivae, and no lid lag. Neck: supple, cannot appreciate JVD. Cardio: Regular rate and rhythm with no murmurs, rubs, or gallops appreciated Pulm: b/l air sound, crackles on the bases, no wheezes or rhonchi. Normal respiratory effort with no use of accessory muscles. Abd: positive bowel tone. Soft, nontender, nondistended. Extremities: b/l leg edema up to mid thigh. Skin: Normal temperature, turgor, and texture; no rash, ulcers, or subcutaneous nodules appreciated. Neuro: Cranial nerves grossly intact. AOx3 moving equally on all 4 limbs Psyc: Normal mood and affect. IVs and Medications IV Fluids Gen: No acute distress, lying at 30 degree incline. HEENT: Normocephalic, atraumatic. External ears without defect. Pupils equal, round, and reactive to light and accommodation. Sclera icteric Neck: supple, no JVD Cardio: heart RRR, diastolic murmur, no rubs, or gallops Pulm: b/l air sound, diminished on right lower bases, b/l crackles, no wheezes, or coarse breath Abd: positive bowel tone. Soft, nontender, nondistended. Extremities: No clubbing, cyanosis, edema, or lymphadenopathy appreciated. Skin: Normal temperature, turgor, and texture; no rash, ulcers, or subcutaneous nodules appreciated. Neuro: Cranial nerves grossly intact. AOx3 moving equally on all 4 extremities Psyc: Normal mood and affect. Alert and oriented to person, place, and time. Medications Reviewed: Medications were reviewed in detail Lab and Diagnostics Result Diagram: 07/25/1636 07/25/1636 X-Rays, CTs and MRIs Echocardiogram Report Interpretation Summary The left ventricular cavity is small. There is mild-moderate concentric left ventricular hypertrophy. The ejection fraction is estimated to be >80%. The right ventricle is moderately dilated. There is a pacemaker lead in the right ventricle. The right ventricular systolic pressure is estimated at 59 mmHg assuming a right atrial pressure of 15 mm Hg. The IVC is dilated (diameter is greater than 2.1 cm) and it collapses less than 50% with a sniff. This suggests a high right atrial pressure of 15 mm Hg. There is a bioprosthetic mitral valve. The prosthetic mitral valve function is abnormal. The mean gradient of the mitral valve is 6.2 mmHg. There is severe mitral annular calcification. There is a bioprosthetic aortic valve. The prosthetic aortic valve function is normal. There is moderate to severe tricuspid regurgitation. There is severe biatrial enlargement. There is a moderate right-sided pleural effusion. A membranous ventricular septal defect is present. The ventricular septal defect is small. No other echocardiographic abnormalities seen. Compared with the prior exam 05/13/2016, the RV pressure is higher and as a result, the VSD appears less. No other significant changes noted. PROCEDURE: X-RAY CHEST ONE VIEW, PORTABLE INDICATIONS: Shortness of breath IMPRESSION: Bilateral pleural effusions with bibasilar opacities. The latter may represent developing pneumonia versus focal edema. Dictated by: Dayanara Mullen M.D. on 07/24/2016 at 18:05 Approved by: Dayanara Mullen M.D. on 07/24/2016 at 18:05 Assessment & Plan Patient is an 89 year old female with a history of CHF on Lasix, DM, HTN, hyperlipidemia, and afib anticoagulated on warfarin brought to the ED by EMS complaining of shortness of breath. Admitted for acute on chronic CHF exacerbation. 1. Acute on chronic heart failure with preserve EF. Present on admission. ongoing - Pt has history of CHF. Recently switched Lasix 20 mg to torsemide 10 mg, but pt feels this has not helped. Last echo about 5 years ago at [facility]. CXR shows bibasilar and retrocardiac opacities, with costophrenic angle blunting. BNP 3756 on admission, pt reports SOB on exertion and desats during road test. 40 mg IV Lasix given on admission. PE unlikely but she complains of bilateral leg tenderness, lower leg venous duplex negative for deep vein thrombosis. - Echo showed hyperdynamic heart, EF >80% with concentric LV, pacer, bioprosthetic mitral valve, and dilated right heart - Restarted torsemide at 20mg daily, while continuing home ASA, metoprolol - Monitor daily standing weights, I/O Acute kidney injury with CKD. Present on admission. - Pt has history of CKD, baseline Cr appears to be 1 - 1.05. Cr was 1.26 today. Possibly secondary to poor renal perfusion related to her CHF exacerbation. Will attempt to diurese gently and monitor creatinine. - Avoid nephrotoxic medications - Hold losartan - Diurese cautiously - Monitor CMP Atrial fibrillation, chronic. Present on admission. - EKG showed atrial fibrillation, rate 72. - Cont metopolol as above - Continue home warfarin - Monitor on telemetry Bilateral pleural effusions, acute. Present on admission. - CXR shows bilat pleural effusions, remonstrate on Likely related to CHF. - Consider ultrasound and thoracentesis if SOB does not improve Hyperbilirubinemia, chronic. Present on admission. - Pt had bilirubin of 1.4 on admission. Previous readings in September 2015 showed bili 1.7 - 2. LFTs and alk phos normal. - Monitor at this time History of valve replacement - Pt had 2 valve replacements, she remembers an aortic valve replacement but cannot remember the second. INR was 3.36 on admission. If she has a mitral valve replacement, she would be within therapeutic range (2.5 - 3.5). - Request records in AM - Continue warfarin per pharmacy - Continue to monitor INR Diabetes mellitus Type 2. - Pt BG on admission 116. - Hold metformin and Tradjenta - A1c ordered - Humalog low dose correctional scale Hyperlipidemia - Simvastatin continued Insomnia, chronic - Continue home melatonin. hold diphenhydramine (Beers criteria / list) Other Chronic Conditions - Hypertension - 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 Disposition: Patient remains in Obs status, likely discharge tomorrow pending improvement of her Creatine. GI Prophylaxis: Not indicated VTE Prophylaxis: Sub-Q Heparin (Unfractionated) Resuscitation Status: DNR/DNI:Do Not Resuscitate/Intubate Time spent 25 minutes Attending Statement I have seen and evaluated patient at bedside and directly supervised care provided by resident physician. I agree with above documentation. Alireza Torres DO Jul 25, 2016 17:44 Saturnino Sutton DO Jul 26, 2016 07:05
[2016-07-25] MEDS ORDERED: diphenhydrAMINE 25 mg Capsule PO PRN (18:05)
--- NOTE | 2016-07-25 19:40 | NUR ---
EMIR explained and signed. Copies of FIELD and Medicare part D info given to pt
[2016-07-26 01:48] VITALS: BP 111/69; PULSE 69; RESP 24; O2SAT 98
[2016-07-26 04:31] VITALS: BP 107/69; PULSE 70; RESP 22; O2SAT 97
[2016-07-26 06:47] LABS: Mean Corpuscular Hemoglobin 27.1 pg (27.0-35.0)
[2016-07-26] MEDS: Insulin LISPRO 300 Unit/3 mL Inj SUBQ SCH ×2 (07:43→11:22)
[2016-07-26 09:54] LABS: INR 2.27 ratio
--- NOTE | 2016-07-26 10:04 | NUR ---
Social Work-readiness for discharge: Data:EMR reviewed. Pt is on day 2 of hospitalization for CHF per H&P. Pt will likely be ready to discharge home later today. ABRAHAM spoke with Leslie LEE at [facility], [place] [phone] who confirms they are able to accept pt back today. Leslie would like clinicals faxed for review to [phone], which ABRAHAM has faxed. Leslie will need discharge orders faxed. Pt's family to provide transport home. ABRAHAM will continue to follow. Assessment:pt who resides at [facility] [place]. Plan:Pt to discharge back to [facility] [place] when medically stable. Leslie at [facility] reviewing clinicals and will need discharge orders faxed. ABRAHAM will continue to follow. TERESA Arauz
[2016-07-26 10:45] VITALS: BP 122/62; PULSE 70; RESP 22; O2SAT 97
[2016-07-26 11:16] VITALS: PULSE 70
[2016-07-26] MEDS ORDERED: TORS20TA PO (13:24)
--- NOTE | 2016-07-26 13:26 | PCM.DIMED ---
Johnnie Pina DO 07/26/16 1016: Discharge Instructions Date of Service Jul 26, 2016 Dates of Hospitalization Jul 24, 2016 at 20:27 Discharge Diagnosis Discharge Diagnosis Acute on chronic heart failure with preserve EF. Present on admission. ongoing Acute kidney injury with CKD. Present on admission. Atrial fibrillation, chronic. Present on admission. Bilateral pleural effusions, acute. Present on admission. Hyperbilirubinemia, chronic. Present on admission. History of valve replacement, AVR & MVR Chronic Anticoagulation, Therapeutic, goals 2.5-3.5 Diabetes mellitus Type 2 Hyperlipidemia Insomnia, chronic Other Chronic Conditions - Hypertension - 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 Medication Instructions Please take Torsemide 20mg daily. You can increase this to 40mg daily for 3 days if you notice dramatic increase of swelling in your legs or if you gain more than 4 lbs of weight. If you do increase the dosage, please notify your primary care doctor, Dr. Dianne Lofton. Continue taking your other medications as prescribed. Please eat a heart healthy/low salt diet. Diet Low fat, Low Sodium Activity No restrictions Call your provider Fever or Chills, Shortness of breath, Chest pain, Vomitting, Weakness ( unilateral) Patient Instructions You were admitted to the hospital for congestive heart failure. Please continue taking your medications as instructed. Please Follow up with Dr. Dianne Lofton, your primary care doctor, within 1 week. Follow-up Provider: Dianne Lofton PAC Follow-up with PCP in: 1 week Rigo Hollis MD 07/27/16 1507: Johnnie Pina DO Jul 26, 2016 10:16 Rigo Hollis MD Jul 27, 2016 15:07
[2016-07-26 13:58] VITALS: BP 94/60; PULSE 70; RESP 20; O2SAT 97
--- NOTE | 2016-07-26 14:26 | NUR ---
Social Work-discharge: Data:EMR reviewed. Pt is on day 2 of hospitalization for CHF per H&P. Pt is medically stable to discharge. RT to evaluate pt for home O2. ABRAHAM spoke with kurt at [facility] who is aware and is agreeable for pt to discharge back today. ABRAHAM faxed orders for review. ABRAHAM placed a call to pt's daughter Zakiya who will provide transport back today around 1500. ABRAHAM updated RN. All updated and agreeable to plan. Assessment:pt who resides at [facility]. Plan:Pt to discharge back to [facility] today via POV. Discharge orders have been faxed. RT to evaluate for home O2. All updated and agreeable to plan. TERESA Arauz
--- NOTE | 2016-07-26 14:36 | NUR ---
TALKED WITH PATIENT AT 1430 ABOUT HOME 02. PATIENT HAS BEEN OFF 02 FOR 30MIN. 02 SATURATION AT 91%. HAD PATIENT WALK AROUND HER ROOM FOR 20 FEET. PATIENT 02 SATURATION MAINTAINED AT 90%. HOME 02 NOT REQUIRED.
--- NOTE | 2016-07-26 16:10 | NUR ---
Discharge: Patient discharge to home @ approx 1600. IV d/c'd intact, telemetry removed, dietary tech notified. Personal belongings sent home with patient. Reviewed new prescription, home medication list, discharge instructions, and follow up appointments w/patient and daughter. Written prescription provided for new Rx. Verbalized understanding. Patient escorted to main entrance via wheelchair accompanied by this RN.
--- NOTE | 2016-07-26 17:31 | PCM.DC.MED ---
Discharge Summary Date of Service Jul 26, 2016 Dates of Hospitalization Date of Hospital Admission Jul 24, 2016 at 20:27 Date of Discharge: Jul 26, 2016 Providers: Admitting Physician: Stefanie Haney DO Primary Care Physician: Dianne Lofton Attending Physician: Stefanie Haney DO Procedures XRay, CTs & MRIs Echocardiogram Report Interpretation Summary The left ventricular cavity is small. There is mild-moderate concentric left ventricular hypertrophy. The ejection fraction is estimated to be >80%. The right ventricle is moderately dilated. There is a pacemaker lead in the right ventricle. The right ventricular systolic pressure is estimated at 59 mmHg assuming a right atrial pressure of 15 mm Hg. The IVC is dilated (diameter is greater than 2.1 cm) and it collapses less than 50% with a sniff. This suggests a high right atrial pressure of 15 mm Hg. There is a bioprosthetic mitral valve. The prosthetic mitral valve function is abnormal. The mean gradient of the mitral valve is 6.2 mmHg. There is severe mitral annular calcification. There is a bioprosthetic aortic valve. The prosthetic aortic valve function is normal. There is moderate to severe tricuspid regurgitation. There is severe biatrial enlargement. There is a moderate right-sided pleural effusion. A membranous ventricular septal defect is present. The ventricular septal defect is small. No other echocardiographic abnormalities seen. Compared with the prior exam 05/13/2016, the RV pressure is higher and as a result, the VSD appears less. No other significant changes noted. PROCEDURE: X-RAY CHEST ONE VIEW, PORTABLE INDICATIONS: Shortness of breath IMPRESSION: Bilateral pleural effusions with bibasilar opacities. The latter may represent developing pneumonia versus focal edema. Dictated by: Dayanara Mullen M.D. on 07/24/2016 at 18:05 Approved by: Dayanara Mullen M.D. on 07/24/2016 at 18:05 Brief History Patient is an 89 year old female with a history of CHF on Lasix, DM, HTN, hyperlipidemia, and afib anticoagulated on warfarin brought to the ED by EMS complaining of shortness of breath that began 2-3 weeks ago and progressively worsening. She reports significant shortness of breath with activity, but denies significant orthopnea or paroxysmal nocturnal dyspnea. She reports that her Lasix was changed to torsemide a few weeks ago. Her PCP is Dianne Lofton in [place]. She also reports edema, urinary retention, non-productive cough, malaise, constipation. Denies UR symptoms such as sinus congestion, sore throat , or rhinorrhea. Denies chest pain, fever, chills, abdominal pain, nausea, vomiting, or diarrhea. Denies recent trauma, injury, or surgeries. Denies history of pneumonia or PE. She reports slightly darker stools lately but her stool was brown and guaiac negative in the ED. She states her last echocardiogram was in [facility] in [place] about 5 years ago. In the ED, O2 sat was 96 on room air but desatted to 80s on road test. Pt was afebrile with HR 72. WBC 7.1, Hb 12.2, Na 132, Cr 1.26, bilirubin 1.4. INR was 3.36. Hospital Course Patient is an 89 year old female with a history of CHF on Lasix, DM, HTN, hyperlipidemia, and afib anticoagulated on warfarin brought to the ED by EMS complaining of shortness of breath. Admitted for acute on chronic CHF exacerbation. Acute on chronic heart failure with preserve EF. Improved - Pt has history of CHF. Recently switched Lasix 20 mg to torsemide 10 mg, but pt feels this has not helped. Last echo about 5 years ago at [facility]. CXR shows bibasilar and retrocardiac opacities, with costophrenic angle blunting. BNP 3756 on admission, pt reports SOB on exertion and desats during road test. 40 mg IV Lasix given on admission. She also received another 20mg of IV lasix during her hospital stay. - Echo showed hyperdynamic heart, EF >80% with concentric LV, pacer, bioprosthetic mitral valve, and dilated right heart - Restarted torsemide at an increase dosage of 20mg daily, while continuing home ASA, metoprolol -Discharge weight is 68.9 kg, patient saturating well on room air at rest. Acute kidney injury with CKD. Resolved. - Pt has history of CKD, baseline Cr appears to be 1 - 1.05. Cr was 1.26 admit. Patient was not oliguric either, so she did not meet GELY criteria. Discharge Cr is 1.19 - Held losartan during hospital admission, restart on discharge Atrial fibrillation, chronic. Stable - EKG showed atrial fibrillation, rate 72. - Continue metoprolol - Continue home warfarin Bilateral pleural effusions, acute. Improved - CXR shows bilat pleural effusions, Likely due to CHF Hyperbilirubinemia, chronic. Stable - Pt had bilirubin of 1.4 on admission. Previous readings in September 2015 showed bili 1.7 - 2. LFTs and alk phos normal. 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 Therapeutic range (2.5 - 3.5). - Request records in AM - Continue warfarin - Continue to monitor INR Diabetes Mellitus Type 2. - Pt BG on admission 116. - Resume metformin and Tradjenta on discharge - A1c ordered - pending no discharge Hyperlipidemia - Simvastatin continued Insomnia, chronic - Continue home melatonin. 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 Anicteric sclerae, moist conjunctivae, and no lid lag. Neck: supple, no JVD appreciated. Cardio: Regular rate and rhythm with no murmurs, rubs, or gallops appreciated Pulm:Fine bibasilar rales, no wheezes or rhonchi. Normal respiratory effort with no use of accessory muscles. Abd: positive bowel tone. Soft, nontender, nondistended. Extremities: b/l leg edema up to mid thigh. Skin: Normal temperature, turgor, and texture; no rash, ulcers, or subcutaneous nodules appreciated. Neuro: No focal weakness AOx3, moving equally on all 4 limbs Psyc: Normal mood and affect. Test 07/24/16 18:25 07/24/16 19:26 07/25/16 05:36 07/26/16 06:10 Magnesium Level 1.9mg/dL (1.6-2.6) Troponin T < 0.010ug/L (0.0-0.011) Pro-B-Type Natriuretic Peptide 3756pg/mL (0-738) Lipase 54U/L (13-60) Procalcitonin < 0.05ng/mL (See Comment) Hold Urban Top Tube Received (Received) Urine Color Yellow (YELLOW) Urine Appearance Clear (CLEAR,HAZY) Urine pH 5.5 (5.0-8.0) Urine Specific [place] 1.015 (1.003-1.035) Urine Protein Negativemg/dL (NEG,TRACE) Urine Glucose (UA) Negativemg/dL (NEGATIVE) Urine Ketones Negativemg/dL (NEGATIVE) Urine Occult Blood Trace (NEGATIVE) Urine Nitrite Negative (NEGATIVE) Urine Bilirubin Negative (NEGATIVE) Urine Urobilinogen Normalmg/dL (NORMAL) Urine Leukocyte Esterase Negative (NEGATIVE) Urine RBC 0-2/hpf (0-2) Urine WBC 0-5/hpf (0-5) Urine Epithelial Cells Few/hpf (NONE-MOD) Urine Crystals Amorphous urates (NONE Urine Bacteria None/hpf (NONE-FEW) Urine Hyaline Casts None/lpf (NONE) Urine Granular Casts None seen (NONE SEEN) Urine Waxy Casts None seen (NONE SEEN) Urine Red Blood Cell Casts None seen (NONE SEEN) Urine White Blood Cell Casts None seen (NONE SEEN) Urine Mucus None seen (None Seen) Urine Trichomonas None seen (NONE SEEN) Urine Yeast None (NONE SEEN) Urine Culture Reflexed Not indicated Hold Urine Received (Received) Neutrophils (%) (Auto) 73.5% (40-74) Lymphocytes (%) (Auto) 6.7% (14-46) Monocytes (%) (Auto) 17.2% (4-12) Eosinophils (%) (Auto) 1.9% (0-5) Basophils (%) (Auto) 0.6% (0-3) Direct Bilirubin 0.6mg/dL (0.0-0.3) White Blood Count 7.5th/mm3 (3.8-10.1) Red Blood Count 4.46mil/mm3 (3.90-5.20) Hemoglobin 12.1g/dL (12.0-15.6) Hematocrit 38.8% (35.0-46.0) Mean Corpuscular Volume 87.0fL (81-100) Mean Corpuscular Hemoglobin 27.1pg (27.0-35.0) Mean Corpuscular Hemoglobin Concent 31.2% (32.0-37.0) Red Cell Distribution Width 14.4% (12.3-15.4) Platelet Count 211bil/L (150-400) Sodium Level 138mEq/L (134-144) Potassium Level 4.0mEq/L (3.5-5.2) Chloride Level 95mEq/L (97-108) Carbon Dioxide Level 29mmol/L (18-29) Blood Urea Nitrogen 16mg/dL (8-27) Creatinine 1.19mg/dL (0.57-1.00) Estimat Glomerular Filtration Rate 61mL/min (>59) Glucose Level 110mg/dL (60-99) Calcium Level 9.4mg/dL (8.5-10.1) Total Bilirubin 2.0mg/dL (0.0-1.2) Aspartate Amino Transf (AST/SGOT) 30U/L (0-50) Alanine Aminotransferase (ALT/SGPT) 18U/L (0-32) Alkaline Phosphatase 83U/L (25-165) Total Protein 5.9g/dL (6.4-8.4) Albumin 3.7g/dL (3.4-5.0) Test 07/26/16 09:35 Prothrombin Time 24.7sec (8.1-12.5) Prothromb Time International Ratio 2.27ratio Discharge Medications Discharge Medications Ascorbic Acid (Vitamin C) 500 Mg Capsule.er 500 MG PO DAILY (Reported) Aspirin Chew (Aspirin Chew) 81 Mg Chew 81 MG PO DAILY (Reported) Calcium Carbonate/Vitamin D3 (Calcium 600 + Vit D3 400 Tab) 600 Mg-400 Tablet 1 EACH PO DAILY (Reported) Cholecalciferol (Vitamin D3) (Vitamin D3) 1,000 Unit Tab.chew 1,000 UNIT PO DAILY (Reported) Docusate Sodium (Colace) 100 Mg Capsule 50 MG PO DAILY (Reported) Linagliptin (Tradjenta) 5 Mg Tablet 5 MG PO DAILY (Reported) Losartan Potassium (Losartan Potassium) 25 Mg Tablet 25 MG PO DAILY (Reported) Melatonin (Melatonin) 3 Mg Tablet 3 MG PO HS (Reported) Metformin ER (Metformin ER) 500 Mg Tablet 500 MG PO BID (Reported) Metoprolol Tartrate (Metoprolol Tartrate) 25 Mg Tablet 25 MG PO BID (Reported) Multivitamin (Multi Vitamin Daily) 1 Each Tablet 1 EACH PO DAILY (Reported) Simvastatin (Simvastatin) 10 Mg Tablet 10 MG PO HS (Reported) Torsemide (Demadex) 20 Mg Tablet 20 MG PO DAILY Prescribed by: YENI PINA DO Warfarin Sodium (Warfarin Sodium) 5 Mg Tablet 7.5 MG PO Tue/Tue (Reported) 7.5mg (1.5 tabs) on Tuesday and Tuesday. Warfarin Sodium (Warfarin Sodium) 5 Mg Tablet 5 MG PO Tue/Tue/Tue//Tue ( Reported) 5mg on Tuesday, Tuesday, Tuesday, , Tuesday As needed Acetaminophen (Acetaminophen) 325 Mg Capsule 650 MG PO TID PRN PRN For Pain ( Reported) Albuterol Sulfate (Ventolin HFA Inhaler) 200 Puff/18 Gm Inhaler 2 PUFF INH Q6- 8H PRN PRN For Wheezing (Reported) NEEDED, UP TO 4 TREATMENTS PER DAY Benzonatate (Benzonatate) 200 Mg Capsule 200 MG PO TID PRN PRN For Cough ( Reported) Bisacodyl (Dulcolax) 5 Mg Tablet.dr 10 MG PO BID PRN PRN For Constipation ( Reported) Guaifenesin (Mucinex) 600 Mg Tablet.er 600 MG PO BID PRN PRN For Cough (Reported ) Polyethylene Glycol 3350 (Polyethylene Glycol 3350) 17 Gm Powd.pack 17 GM PO DAILY PRN PRN For Constipation (Reported) diphenhydrAMINE HCl (Benadryl) 25 Mg Capsule 12.5 MG PO HS PRN PRN (Reported) Followup Plan Disposition: Home Discharge Diet: Low fat, Low Sodium Discharge Activity: No restrictions Follow-up Provider: Dianne Lofton Follow-up with PCP in: 1 week Time spent 30 minutes Attending Statement The patient was seen and examined together with Dr. Pina on 07/26/2016 and I have agree with the assessment and plan of care as noted above. copies to: Dianne Lofton Hong D DO Jul 26, 2016 10:18 Rigo Hollis MD Jul 27, 2016 15:08
== END 2016-07-26 16:05 | disposition home or self-care (01) ==
LOC: SED 17:38 → MPC 20:27 → INTOOBSV 20:27 → MPC 21:13
PROVIDERS: ADMIT Internal Medicine; ATTEND Internal Medicine
DX: I50.9 Heart failure, unspecified (principal); N17.9 Acute kidney failure, unspecified; N18.9 Chronic kidney disease, unspecified; I48.2 Chronic atrial fibrillation; Z79.01 Long term (current) use of anticoagulants; J90 Pleural effusion, not elsewhere classified; E80.6 Other disorders of bilirubin metabolism; Z95.2 Presence of prosthetic heart valve; E11.9 Type 2 diabetes mellitus without complications; Z79.84 Long term (current) use of oral hypoglycemic drugs; I12.9 Hypertensive chronic kidney disease with stage 1 through stage 4 chronic kidney disease, or unspecified chronic kidney disease; E78.5 Hyperlipidemia, unspecified; Z95.0 Presence of cardiac pacemaker
CPT/HCPCS: 36415; 71010; 80053; 81000; 82247; 82274; 82308; 83036; 83690; 83735; 83880; 84484; 85025; 85027; 85610; 87804; 93005; 93970; 96374; 99285; C8929; G0378; J1815; J1940

== ENCOUNTER 2016-07-28 12:09 | Emergency (ER) | payer MEDICARE, OTHER ==
[~2016-07-28] VITALS: Ht 152.4 cm; Wt 79.5 kg
[~2016-07-28 12:09] MED LIST changes: +ACET325C PO; +ALBU18HF INH; -ALBU8.5H2 INHALATION; +ASCO500C6 PO; +ASPI81TA3 PO; -BENZ100C8 PO; +BENZ200C44 PO; +BISA-67 PO; +CALC-1034 PO; +CHOL10008 PO; +DIPH25CA6 PO; +DOCU-41 PO; -FURO-129 PO; +GUAI600T2 PO; +LINA5TAB PO; -LISI1TAB7 PO; +LOSA25TA21 PO; +MELA3TAB35 PO; -METF500T4 PO; +METF500T7 PO; +METO25TA6 PO; +MULT-1018 PO; +POLY17PO2 PO; +SIMV10TA4 PO; -SIMV5TAB7 PO; +TORS20TA PO; -WARF1TAB6 PO; +WARF5TAB7 PO
[2016-07-28 12:16] VITALS: BP 119/51; PULSE 67; RESP 24; O2SAT 94
--- NOTE | 2016-07-28 12:49 | ED.REPORT ---
HPI-Dyspnea / Wheezing Date of Service Jul 28, 2016 ED Provider: Stephen Waller MD An 89 year old female with an extensive medical history including CHF, diabetes , and atrial fibrillation on Warfarin presents to the ED via EMS from her senior living for intermittent shortness of breath and low O2 sats (80%) over the past two days. Her symptoms are exacerbated with exertion. The patient also reports fatigue and diarrhea. EMS found the patient with O2 saturation at 99%, a BP of 130/86, and a pulse of 70. The patient denies nausea, fever, chills, diaphoresis, or dysuria. She was discharged from the hospital on 07/26/16 after a two night stay for CHF exacerbation and bilateral pleural effusions. The patient is a poor historian. Nursing Notes Stated Complaint: LOW OXYGEN Chief Complaint: Respiratory Distress Nursing Notes Reviewed: Yes Allergies: Coded Allergies: Penicillins (Verified Adverse Reaction, Mild, Diarrhea, 07/26/16) Scheduled Ascorbic Acid (Vitamin C) 500 Mg Capsule.er 500 MG PO DAILY Aspirin Chew (Aspirin Chew) 81 Mg Chew 81 MG PO DAILY Calcium Carbonate/Vitamin D3 (Calcium 600 + Vit D3 400 Tab) 600 Mg-400 Tablet 1 EACH PO DAILY Cholecalciferol (Vitamin D3) (Vitamin D3) 1,000 Unit Tab.chew 1,000 UNIT PO DAILY Docusate Sodium (Colace) 100 Mg Capsule 50 MG PO DAILY Linagliptin (Tradjenta) 5 Mg Tablet 5 MG PO DAILY Losartan Potassium (Losartan Potassium) 25 Mg Tablet 25 MG PO DAILY Melatonin (Melatonin) 3 Mg Tablet 3 MG PO HS Metformin ER (Metformin ER) 500 Mg Tablet 500 MG PO BID Metoprolol Tartrate (Metoprolol Tartrate) 25 Mg Tablet 25 MG PO BID Multivitamin (Multi Vitamin Daily) 1 Each Tablet 1 EACH PO DAILY Simvastatin (Simvastatin) 10 Mg Tablet 10 MG PO HS Torsemide (Demadex) 20 Mg Tablet 20 MG PO DAILY Warfarin Sodium (Warfarin Sodium) 5 Mg Tablet 7.5 MG PO Tue/Tue 7.5mg (1.5 tabs) on Tuesday and Tuesday. Warfarin Sodium (Warfarin Sodium) 5 Mg Tablet 5 MG PO Sun/Tue/Tue//Sat 5mg on Tuesday, Tuesday, Tuesday, , Tuesday Scheduled PRN Acetaminophen (Acetaminophen) 325 Mg Capsule 650 MG PO TID PRN PRN For Pain Albuterol Sulfate (Ventolin HFA Inhaler) 200 Puff/18 Gm Inhaler 2 PUFF INH Q6- 8H PRN PRN For Wheezing NEEDED, UP TO 4 TREATMENTS PER DAY Benzonatate (Benzonatate) 200 Mg Capsule 200 MG PO TID PRN PRN For Cough Bisacodyl (Dulcolax) 5 Mg Tablet.dr 10 MG PO BID PRN PRN For Constipation Guaifenesin (Mucinex) 600 Mg Tablet.er 600 MG PO BID PRN PRN For Cough Polyethylene Glycol 3350 (Polyethylene Glycol 3350) 17 Gm Powd.pack 17 GM PO DAILY PRN PRN For Constipation diphenhydrAMINE HCl (Benadryl) 25 Mg Capsule 12.5 MG PO HS PRN PRN General Time Seen by MD: 12:45 Chief Complaint Shortness of breath Hx Obtained From: Patient Arrived By: Ambulance Sudden in Onset?: Yes Onset Occurred: Just prior to arrival Symptom Duration: Intermittent Severity: Current: No pain currently Severity: Maximum: No pain Associated with: Denies: Fever, Vomiting Relieved by: Lying flat Context Related History: Reports: Congestive heart failure Recent Healthcare: Recent doctor visit, Recent hospitalization Similar Sx Previous: Yes Past Medical History Past Medical History History of afib on Warfarin Chronic Renal disease Congestive heart failure Diabetes mellitus Hyperlipidemia Hypertension 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 Heart murmur Past Surgical History valve replacement x2 Reports: Appendectomy, Hysterectomy Reports: Pacemaker insertion Family History Father - Smoker, lung cancer Sister - Smoker, COPD Smoking History Never Smoker Social History [facility] in [facility] Other Social History: Good social support, Lives in senior living, Local resident Ambulatory Status Independent Review of Systems Review of Systems Note: + Intermittent low O2 sats (80%) Constitutional: Reports: Fatigue, Denies: Chills, Fever Respiratory: Reports: Shortness of breath Skin: Denies Diaphoresis Complete sys rev & neg: except as marked. GI: Reports: Diarrhea, Denies: Nausea, Vomiting Female: Denies: Dysuria Physical Exam Initial Vital Signs Vital Signs (First) Date Time Temp Pulse Resp B/P Pulse Ox O2 Delivery O2 Flow Rate FiO2 07/28/16 12:16 36.6 67 24 119/51 94 Room Air Initial VS: Reviewed Head / Eyes: Atraumatic, Normocephalic ENT: Conjunctiva normal, No scleral icterus Abdomen / GI: Soft, Non-tender Skin: Warm, Dry Neurologic: Alert, Oriented, Nonfocal Psychiatric: Mood/affect normal, Behavior normal, Normal thought content General/Constitutional: Awake, Alert, No acute distress Speaking in full sentences Respiratory / Chest: Breath sounds NL, Breath sounds = bilat, No respiratory distress Cardiovascular: Heart rate NL, Regular rhythm, Heart sounds NL Lower Ext Edema: Positive: Bilateral 2+ Re-Eval/Medical Decision Med Decision/Clinical Course With ambulation the patient's saturations dropped to 85% on room air. I have spoken with her primary care provider to arrange home oxygen. Source of Hx: Old records Re-Evaluation/Progress #1: Time of Eval: 13:13 Re-Evaluation/Progress Note: Spoke with Lu Odonnell [facility]. Additional history obtained. Her caretakers request the patient be placed on home O2 Re-Evaluation/Progress #2: Time of Eval: 13:43 Patient Status: Condition worsened Re-Evaluation/Progress Note: Patient's O2 sats dropped to the 80s and she became short of breath while walking around the ER Re-Evaluation/Progress #3: Time of Eval: 14:42 Re-Evaluation/Progress Note: Discussed with patient diagnosis and plan for discharge. Follow-up and return to the ER instructions given. Patient agrees with plan for care and all questions were addressed. Consultation : Referral / Consult Name: Dianne Lofton Consulted With: Primary care physician Call Returned at: 13:43 Calender Inspector: Agrees with eval, Agrees with plan Counseled Regarding: Diagnosis, Lab results, Need for follow-up, When/why to return to ED Discharge & Departure Impression: Primary Impression: CHF (congestive heart failure) Congestive heart failure type: unspecified congestive heart failure type Congestive heart failure chronicity: unspecified congestive heart failure chronicity Qualified Code: I50.9 - Heart failure, unspecified Disposition: Home Discharge Condition All VS Reviewed: Yes Condition: Stable Patient Instructions: Congestive Heart Failure (ED) Additional Instructions: I believe that you need oxygen at home given the fact that your oxygen level drops to the mid to low 80s on room air with minimal exertion. Martin Lofton is arranging this as we speak. Return to the emergency department if you experience chest pain or shortness of breath not resolved with supplemental oxygen Referrals: Dianne Lofton (PCP) Scribe Attestation Portions of this note were transcribed by Ashlee Padilla. I, Dr. Waller, personally performed the history, physical exam, and medical decision-making; I reviewed and confirmed the accuracy of the information in the transcribed note. Signed by: Brandy Ann, 07/28/2016, 14:42 copies to: Dianne Lofton Kirk H MD Jul 28, 2016 12:49 ASHLEE PADILLA Jul 28, 2016 12:53
[2016-07-28 15:21] VITALS: BP 124/72; PULSE 69; RESP 22; O2SAT 99
== END 2016-07-28 15:22 | disposition home or self-care (01) ==
LOC: SED 12:09 → EDBD 12:09 → SED 15:22
DX: I50.9 Heart failure, unspecified (principal); R06.02 Shortness of breath; R53.1 Weakness; R19.7 Diarrhea, unspecified; E11.9 Type 2 diabetes mellitus without complications; I48.91 Unspecified atrial fibrillation; E78.5 Hyperlipidemia, unspecified; I10 Essential (primary) hypertension; Z95.2 Presence of prosthetic heart valve; Z95.0 Presence of cardiac pacemaker; Z88.0 Allergy status to penicillin; Z79.01 Long term (current) use of anticoagulants; Z79.82 Long term (current) use of aspirin; Z79.84 Long term (current) use of oral hypoglycemic drugs

== ENCOUNTER 2016-08-13 17:26 | Emergency (ER) | payer MEDICARE, OTHER ==
[~2016-08-13] VITALS: Ht 152.4 cm; Wt 70.5 kg
[2016-08-13 17:38] VITALS: BP 144/61; PULSE 71; RESP 20; O2SAT 100
[2016-08-13 18:08] LABS: BASOPHILS % (AUTO) 0.7 % (0-3); MONOCYTES % (AUTO) 22.5 % (4-12); Mean Corpuscular Hemoglobin 27.3 pg (27.0-35.0); Mean Corpuscular Volume 88.5 fL (81-100); NEUTROPHILS % (AUTO) 66.5 % (40-74); Platelet Count 153 bil/L (150-400)
--- NOTE | 2016-08-13 18:22 | ED.REPORT ---
HPI-Dyspnea / Wheezing Date of Service Aug 13, 2016 ED Provider: Jojo Grier MD The patient is an 89 year old female with history of afib requiring pacemaker placement who presents to the ED via EMS complaining of shortness of breath and productive cough with yellow sputum for the last three days. She reports that her cough worsened last night which woke her from sleep. She was given a nebulizer treatment en route which she reports offered mild relief. Associated symptom of wheezing and chronic bilateral lower extremity edema. She denies fever, chills, chest pain, or any other symptoms at this time. She takes Warfarin for her afib. Nursing Notes Stated Complaint: SOB Chief Complaint: Respiratory Complaints Nursing Notes Reviewed: Yes Allergies: Coded Allergies: Penicillins (Verified Adverse Reaction, Mild, Diarrhea, 08/13/16) Scheduled Ascorbic Acid (Vitamin C) 500 Mg Capsule.er 500 MG PO DAILY Aspirin Chew (Aspirin Chew) 81 Mg Chew 81 MG PO DAILY Azithromycin (Zithromax) 250 Mg Tablet 250 MG PO DAILY Calcium Carbonate/Vitamin D3 (Calcium 600 + Vit D3 400 Tab) 600 Mg-400 Tablet 1 EACH PO DAILY Cholecalciferol (Vitamin D3) (Vitamin D3) 1,000 Unit Tab.chew 1,000 UNIT PO DAILY Docusate Sodium (Colace) 100 Mg Capsule 50 MG PO DAILY Linagliptin (Tradjenta) 5 Mg Tablet 5 MG PO DAILY Losartan Potassium (Losartan Potassium) 25 Mg Tablet 25 MG PO DAILY Melatonin (Melatonin) 3 Mg Tablet 3 MG PO HS Metformin ER (Metformin ER) 500 Mg Tablet 500 MG PO BID Metoprolol Tartrate (Metoprolol Tartrate) 25 Mg Tablet 25 MG PO BID Multivitamin (Multi Vitamin Daily) 1 Each Tablet 1 EACH PO DAILY Simvastatin (Simvastatin) 10 Mg Tablet 10 MG PO HS Torsemide (Demadex) 20 Mg Tablet 20 MG PO DAILY Warfarin Sodium (Warfarin Sodium) 5 Mg Tablet 7.5 MG PO Tue/Tue 7.5mg (1.5 tabs) on Tuesday and Tuesday. Warfarin Sodium (Warfarin Sodium) 5 Mg Tablet 5 MG PO Sun/Tue/Tue//Sat 5mg on Tuesday, Tuesday, Tuesday, , Tuesday Scheduled PRN Acetaminophen (Acetaminophen) 325 Mg Capsule 650 MG PO TID PRN PRN For Pain Albuterol Sulfate (Ventolin HFA Inhaler) 200 Puff/18 Gm Inhaler 2 PUFF INH Q6- 8H PRN PRN For Wheezing NEEDED, UP TO 4 TREATMENTS PER DAY Benzonatate (Benzonatate) 200 Mg Capsule 200 MG PO TID PRN PRN For Cough Bisacodyl (Dulcolax) 5 Mg Tablet.dr 10 MG PO BID PRN PRN For Constipation Guaifenesin (Mucinex) 600 Mg Tablet.er 600 MG PO BID PRN PRN For Cough Polyethylene Glycol 3350 (Polyethylene Glycol 3350) 17 Gm Powd.pack 17 GM PO DAILY PRN PRN For Constipation diphenhydrAMINE HCl (Benadryl) 25 Mg Capsule 12.5 MG PO HS PRN PRN General Time Seen by MD: 18:21 Chief Complaint Cough, Shortness of breath, Wheezing Hx Obtained From: Patient, Daughter Arrived By: Ambulance Sudden in Onset?: No Onset Occurred: 3 days ago Symptom Duration: Waxes and wanes Severity: Current: No pain currently Severity: Maximum: No pain Recent Healthcare: No recent doctor visit, No recent hospitalization Similar Sx Previous: No Past Medical History Past Medical History History of afib on Warfarin Chronic Renal disease Congestive heart failure Diabetes mellitus Hyperlipidemia Hypertension 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 Heart murmur Past Surgical History valve replacement x2 Reports: Appendectomy, Hysterectomy Reports: Pacemaker insertion Family History Father - Smoker, lung cancer Sister - Smoker, COPD Smoking History Never Smoker Social History Lives in [facility] Other Social History: Good social support, Lives in [place], Local resident Ambulatory Status Independent Review of Systems Constitutional: Denies: Chills, Fever Respiratory: Reports: Prod cough, yellow, Shortness of breath, Wheezing Cardiovascular: Denies: Chest pain, Palpitations, Syncope Musculoskeletal: Reports: Extremity swelling (bilateral lower extremity), Denies: Back pain Complete sys rev & neg: except as marked. GI: Denies: Nausea, Vomiting Physical Exam Initial Vital Signs Vital Signs (First) Date Time Temp Pulse Resp B/P Pulse Ox O2 Delivery O2 Flow Rate FiO2 08/13/16 17:38 36.5 71 20 144/61 100 Nasal Cannula 2 Initial VS: Reviewed Head / Eyes: Atraumatic, Normocephalic, PERRL ENT: Mucous membranes moist, Conjunctiva normal, No scleral icterus Abdomen / GI: Soft, Non-tender, No guarding, No rebound, No distention Back: No CVA tenderness Skin: Warm, Dry, No cyanosis Neurologic: Alert, Oriented, Nonfocal Psychiatric: Mood/affect normal, Behavior normal, Normal thought content General/Constitutional: Awake, Alert, No acute distress Neck: Atraumatic, Supple, Full range of motion Respiratory / Chest: Atraumatic Resp Distress / Stridor: Positive: Resp distress mild Wheezing / Retractions: Positive: Wheeze insp/exp diffuse Rales / Rhonchi: Positive: Rhonchi diffuse (coarse) No audible crackles Cardiovascular: Heart rate NL, Regular rhythm, Heart sounds NL Lower extremities: Bilateral 2+ pitting edema with chronic venostasis changes Interpretation & Diagnostics Lab Results Interpretation Result Diagram: 08/13/16 1800 08/13/16 1800 Test 08/13/16 18:00 08/13/16 18:55 White Blood Count 5.6th/mm3 (3.8-10.1) Red Blood Count 4.54mil/mm3 (3.90-5.20) Hemoglobin 12.4g/dL (12.0-15.6) Hematocrit 40.2% (35.0-46.0) Mean Corpuscular Volume 88.5fL (81-100) Mean Corpuscular Hemoglobin 27.3pg (27.0-35.0) Mean Corpuscular Hemoglobin Concent 30.8% (32.0-37.0) Red Cell Distribution Width 15.2% (12.3-15.4) Platelet Count 153bil/L (150-400) Neutrophils (%) (Auto) 66.5% (40-74) Lymphocytes (%) (Auto) 8.1% (14-46) Monocytes (%) (Auto) 22.5% (4-12) Eosinophils (%) (Auto) 2.0% (0-5) Basophils (%) (Auto) 0.7% (0-3) Sodium Level 139mEq/L (134-144) Potassium Level 4.4mEq/L (3.5-5.2) Chloride Level 96mEq/L (97-108) Carbon Dioxide Level 27mmol/L (18-29) Blood Urea Nitrogen 21mg/dL (8-27) Creatinine 1.23mg/dL (0.57-1.00) Estimat Glomerular Filtration Rate 59mL/min (>59) Glucose Level 121mg/dL (60-99) Calcium Level 9.3mg/dL (8.5-10.1) Magnesium Level 1.9mg/dL (1.6-2.6) Total Bilirubin 1.3mg/dL (0.0-1.2) Aspartate Amino Transf (AST/SGOT) 38U/L (0-50) Alanine Aminotransferase (ALT/SGPT) 20U/L (0-32) Alkaline Phosphatase 88U/L (25-165) Troponin T 0.011ug/L (0.0-0.011) Pro-B-Type Natriuretic Peptide 4575pg/mL (0-738) Total Protein 6.6g/dL (6.4-8.4) Albumin 3.7g/dL (3.4-5.0) Urine Color Yellow (YELLOW) Urine Appearance Clear (CLEAR,HAZY) Urine pH 6.0 (5.0-8.0) Urine Specific [place] 1.020 (1.003-1.035) Urine Protein Negativemg/dL (NEG,TRACE) Urine Glucose (UA) Negativemg/dL (NEGATIVE) Urine Ketones Negativemg/dL (NEGATIVE) Urine Occult Blood Trace (NEGATIVE) Urine Nitrite Negative (NEGATIVE) Urine Bilirubin Negative (NEGATIVE) Urine Urobilinogen Normalmg/dL (NORMAL) Urine Leukocyte Esterase Negative (NEGATIVE) Urine RBC 0-2/hpf (0-2) Urine WBC 0-5/hpf (0-5) Urine Epithelial Cells None/hpf (NONE-MOD) Urine Crystals None seen (NONE SEEN) Urine Bacteria Few/hpf (NONE-FEW) Urine Hyaline Casts None/lpf (NONE) Urine Granular Casts None seen (NONE SEEN) Urine Waxy Casts None seen (NONE SEEN) Urine Red Blood Cell Casts None seen (NONE SEEN) Urine White Blood Cell Casts None seen (NONE SEEN) Urine Mucus None seen (None Seen) Urine Trichomonas None seen (NONE SEEN) Urine Yeast None (NONE SEEN) Urinalysis Comment Amorphous sediment Urine Culture Reflexed Not indicated X-Ray Chest Interpretation Chest Xray Interpretation: IMPRESSION: Bibasilar patchy opacities although improved aeration of the right lower lobe since 07/24/16. No definite new consolidation. Dictated by: Kenneth Aburto M.D. on 08/13/2016 at 18:42 Approved by: Kenneth Aburto M.D. on 08/13/2016 at 19:02 View: Portable, 1 view Interpretation / Wet Read by: Interpret - Radiologist Re-Eval/Medical Decision Med Decision/Clinical Course 10-year-old female with extensive past medical history here with shortness of breath and cough productive of yellow sputum. Differential diagnosis includes but is not limited to viral versus bacterial pneumonia versus influenza versus upper respiratory infection. Patient was extremely wheezy when she came in, however, after a DuoNeb and an albuterol treatment, her breath sounds dramatically improved. She was given her first dose of azithromycin in the emergency department. Her labs were unremarkable. Her chest x-ray showed mild patchy infiltrates, without a definitive pneumonia. I have given her a prescription for azithromycin. I offered to admit her, however, she would like to go home. At this time, I feel she is stable for discharge with close follow- up with her primary care physician. She is aware and amenable to discharge at this time with strict return precautions Source of Hx: Old records Re-Evaluation/Progress #1: Time of Eval: 20:13 Re-Evaluation/Progress Note: Rechecked the patient who still has some wheezing but is much improved from prior examination. Discussed diagnosis and plan for discahrge. The patient understands and agrees to the plan. Follow-up instructions and RTER warnings given. All questions addressed. Re-Evaluation/Progress #2: Time of Eval: 21:23 Re-Evaluation/Progress Note: Rechecked the patient who has mild expiratory wheezes but is drastically improved from the initial examination. Will discharge. Counseled Regarding: Diagnosis, Lab results, Need for follow-up, When/why to return to ED Discharge & Departure Impression: Primary Impression: Pneumonia Disposition: Home Discharge Condition All VS Reviewed: Yes Condition: Stable Additional Instructions: Your emergency department visit today included a consultation, physical examination, laboratory testing, and imaging studies. Your laboratory work was reassuring, I believe your symptoms are due to an early pneumonia. I have prescribed you a course of Azithromycin (an antibiotic) to help treat this. Follow-up with your primary care doctor next week about your visit [facility]. Return to the emergency department if you develop worsening shortness of breath , develop a fever, or if you develop any other new/concerning symptoms. [facility], it was a pleasure to partake in your care. Referrals: Dianne Lofton (PCP) Scribe Attestation Portions of this note were transcribed by Leo Wallace. I, Dr. Grier, personally performed the history, physical exam, and medical decision-making; I reviewed and confirmed the accuracy of the information in the transcribed note. Signed by: Brandy Ugalde. 08/13/16, 21:19. copies to: Dianne Lofton Rebecca A MD Aug 13, 2016 18:22 LOE WALLACE Aug 13, 2016 18:38
[2016-08-13 18:32] LABS: TROPONIN T 0.011 ug/L (0.0-0.011)
[2016-08-13] MEDS ORDERED: Albuterol-Ipratropium 3 mL Inhalation Solution NEB ONE (18:40)
[2016-08-13 18:43] LABS: Magnesium 1.9 mg/dL (1.6-2.6)
--- NOTE | 2016-08-13 19:04 | DRSVH ---
PROCEDURE: X-RAY CHEST ONE VIEW, PORTABLE ([id number]) INDICATIONS: Shortness of breath TECHNIQUE: One view of the chest was acquired. COMPARISON: [facility], CR, XR CHEST 1VW (PORTABLE), 07/24/2016, 18:00. FINDINGS: Surgical changes and devices: Unchanged appearance. Lungs and pleura: Bibasilar opacities, although improved in appearance since 07/24/16 in the right oksana g base.. Possible small right pleural effusion has improved. No pneumothorax Mediastinum: Mediastinal contours appear normal. Heart size is normal. Extensive mitral annular ca lcifications are again noted Bones and chest wall: No suspicious bony lesions. Overlying soft tissues appear unremarkable. IMPRESSION: Bibasilar patchy opacities although improved aeration of the right lower lobe since . No definite new consolidation. Dictated by: Kenneth Aburto M.D. on 08/13/2016 at 18:42 Approved by: Kenneth Aburto M.D. on 08/13/2016 at 19:02
[2016-08-13 19:16] VITALS: PULSE 70; RESP 20; O2SAT 99
[2016-08-13 19:19] LABS: APPEARANCE,URINE CLEAR (CLEAR,HAZY); COLOR,URINE YELLOW (YELLOW); OCCULT BLOOD,URINE TRACE (NEGATIVE); UROBILINOGEN,URINE NORMAL (NORMAL)
[2016-08-13 19:57] VITALS: BP 143/66; PULSE 72; RESP 28; O2SAT 100
[2016-08-13] MEDS ORDERED: Albuterol 2.5 mg/3 mL Inhalation Solution NEB ONE (20:15)
[2016-08-13] MEDS ORDERED: ZIT250 PO (21:17)
[2016-08-13 21:30] VITALS: BP 143/66; PULSE 72; RESP 28; O2SAT 100
== END 2016-08-13 21:31 | disposition home or self-care (01) ==
LOC: EDBD 17:26 → SED 17:26
DX: J18.9 Pneumonia, unspecified organism (principal); R60.0 Localized edema; I13.0 Hypertensive heart and chronic kidney disease with heart failure and stage 1 through stage 4 chronic kidney disease, or unspecified chronic kidney disease; E11.59 Type 2 diabetes mellitus with other circulatory complications; E11.22 Type 2 diabetes mellitus with diabetic chronic kidney disease; I50.9 Heart failure, unspecified; I48.91 Unspecified atrial fibrillation; N18.9 Chronic kidney disease, unspecified; E78.5 Hyperlipidemia, unspecified; Z95.0 Presence of cardiac pacemaker; Z95.4 Presence of other heart-valve replacement; Z79.82 Long term (current) use of aspirin; Z79.84 Long term (current) use of oral hypoglycemic drugs; Z79.01 Long term (current) use of anticoagulants; Z88.0 Allergy status to penicillin
CPT/HCPCS: 36415; 71010; 80053; 81000; 83735; 83880; 84484; 85025; 87804; 94664; 99285; G0463; J7613; J7620

== ENCOUNTER 2016-08-15 01:11 | Inpatient (IN) | payer MEDICARE, OTHER ==
[2016-08-15] VITALS (10 sets, daily range): BP systolic 101–152; BP diastolic 44–85; PULSE 67–78; RESP 18–32; O2SAT 88–99
[~2016-08-15] VITALS: Ht 152.4 cm; Wt 72.8 kg
[~2016-08-15 01:11] MED LIST changes: +ZIT250 PO
[2016-08-15] MEDS ORDERED: Albuterol-Ipratropium 3 mL Inhalation Solution NEB ONE (01:30)
[2016-08-15] MEDS ORDERED: Albuterol 2.5 mg/3 mL Inhalation Solution NEB ONE (01:30)
--- NOTE | 2016-08-15 01:40 | ED.REPORT ---
HPI-Dyspnea / Wheezing Date of Service Aug 15, 2016 ED Provider: Armando Gates MD Pt is an 89 year old female with a hx of HTN, CHF, DM and renal disease presenting to the ED via EMS in respiratory distress. The pt is on O2 and lives in [facility]. She was diagnosed with pneumonia today and was started on antibiotics. She states "I was thinking of just jumping out of the window." Nursing Notes Stated Complaint: RESPIRATORY DISTRESS Chief Complaint: Respiratory Distress Nursing Notes Reviewed: Yes Allergies: Coded Allergies: Penicillins (Verified Adverse Reaction, Mild, Diarrhea, 08/15/16) Scheduled Ascorbic Acid (Vitamin C) 500 Mg Capsule.er 500 MG PO DAILY Aspirin Chew (Aspirin Chew) 81 Mg Chew 81 MG PO DAILY Azithromycin (Zithromax) 250 Mg Tablet 250 MG PO DAILY Calcium Carbonate/Vitamin D3 (Calcium 600 + Vit D3 400 Tab) 600 Mg-400 Tablet 1 EACH PO DAILY Cholecalciferol (Vitamin D3) (Vitamin D3) 1,000 Unit Tab.chew 1,000 UNIT PO DAILY Docusate Sodium (Colace) 100 Mg Capsule 50 MG PO DAILY Linagliptin (Tradjenta) 5 Mg Tablet 5 MG PO DAILY Losartan Potassium (Losartan Potassium) 25 Mg Tablet 25 MG PO DAILY Melatonin (Melatonin) 3 Mg Tablet 3 MG PO HS Metformin ER (Metformin ER) 500 Mg Tablet 500 MG PO BID Metoprolol Tartrate (Metoprolol Tartrate) 25 Mg Tablet 25 MG PO BID Multivitamin (Multi Vitamin Daily) 1 Each Tablet 1 EACH PO DAILY Simvastatin (Simvastatin) 10 Mg Tablet 10 MG PO HS Torsemide (Demadex) 20 Mg Tablet 20 MG PO DAILY Warfarin Sodium (Warfarin Sodium) 5 Mg Tablet 7.5 MG PO Tue/Tue 7.5mg (1.5 tabs) on Tuesday and Tuesday. Warfarin Sodium (Warfarin Sodium) 5 Mg Tablet 5 MG PO Sun/Tue/Tue/ur/Sat 5mg on Tuesday, Tuesday, Tuesday, , Tuesday Scheduled PRN Acetaminophen (Acetaminophen) 325 Mg Capsule 650 MG PO TID PRN PRN For Pain Albuterol Sulfate (Ventolin HFA Inhaler) 200 Puff/18 Gm Inhaler 2 PUFF INH Q6- 8H PRN PRN For Wheezing NEEDED, UP TO 4 TREATMENTS PER DAY Benzonatate (Benzonatate) 200 Mg Capsule 200 MG PO TID PRN PRN For Cough Bisacodyl (Dulcolax) 5 Mg Tablet.dr 10 MG PO BID PRN PRN For Constipation Guaifenesin (Mucinex) 600 Mg Tablet.er 600 MG PO BID PRN PRN For Cough Polyethylene Glycol 3350 (Polyethylene Glycol 3350) 17 Gm Powd.pack 17 GM PO DAILY PRN PRN For Constipation diphenhydrAMINE HCl (Benadryl) 25 Mg Capsule 12.5 MG PO HS PRN PRN General Time Seen by MD: 01:20 Chief Complaint Other (Dyspnea) Hx Obtained From: Patient, EMS Arrived By: Ambulance Sudden in Onset?: No Onset Occurred: Just prior to arrival Symptom Duration: Since onset Quality: Painful Severity: Current: Moderate Severity: Maximum: Moderate Recent Healthcare: Recent doctor visit, Recent hospitalization Similar Sx Previous: Yes Past Medical History Past Medical History History of afib on Warfarin Chronic Renal disease Congestive heart failure Diabetes mellitus Hyperlipidemia Hypertension 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 Heart murmur Past Surgical History valve replacement x2 Reports: Appendectomy, Hysterectomy Reports: Pacemaker insertion Family History Father - Smoker, lung cancer Sister - Smoker, COPD Smoking History Never Smoker Social History Lives in [facility] Other Social History: Good social support, Lives in retirement, Local resident Ambulatory Status Independent Review of Systems Respiratory: Reports: Non-productive cough, Shortness of breath, Wheezing Complete sys rev & neg: except as marked. Physical Exam Initial Vital Signs Vital Signs (First) Date Time Temp Pulse Resp B/P Pulse Ox O2 Delivery O2 Flow Rate FiO2 08/15/16 01:13 36.8 70 152/85 96 Simple Mask 6 Nasal Cannula 08/15/16 01:39 25 Initial VS: Reviewed, Vital signs normal Head / Eyes: Atraumatic, Normocephalic, PERRL ENT: Mucous membranes moist, Conjunctiva normal, No scleral icterus Abdomen / GI: Soft, Non-tender, No guarding, No rebound, No distention Extremities: Vascular intact, Neuro intact, No swelling, No tenderness Skin: Warm, Dry, No cyanosis Neurologic: Alert, Oriented, Nonfocal General/Constitutional: Awake, Alert Neck: Atraumatic, Full range of motion Respiratory / Chest: Atraumatic Wheezing / Retractions: Positive: Wheezing expiratory Psychiatric: Judgment/insight NL Expresses suicidal ideation. Re-Eval/Medical Decision Med Decision/Clinical Course 89-year-old female recently diagnosed with pneumonia. She is unable to control her wheezing at home. She is DNR/DNI, comfort measures only. She received multiple nebulizer treatments and morphine and Solu-Medrol. She will be admitted for further treatment of her asthma. Re-Evaluation/Progress #1: Time of Eval: 03:27 )( Re-Eval Resp / Chest: Moderate wheezing Patient Status: Condition improved Re-Evaluation/Progress Note: She reports that her breathing is improved. Re-Evaluation/Progress #2: Time of Eval: 05:23 Patient Status: Condition improved Re-Evaluation/Progress Note: Pt is resting comfortably. Consultation : Referral / Consult Name: Evelio Mendez MD Consulted With: Hospitalist Call Returned at: 05:39 Licsw: Will see patient, Agrees with plan, Accepts admit Counseled Regarding: Diagnosis, Lab results, Need for follow-up, When/why to return to ED Discharge & Departure Impression: Primary Impression: Status asthmaticus Asthma severity: moderate persistent Qualified Code: J45.42 - Moderate persistent asthma with status asthmaticus Additional Impression: Pneumonia Pneumonia type: due to unspecified organism Laterality: unspecified laterality Lung location: unspecified part of lung Qualified Code: B99.9 - Unspecified infectious disease Disposition: ADMITTED TO HOSPITAL Discharge Condition All VS Reviewed: Yes Condition: Improved Referrals: Dianne Lofton (PCP) Brandy Attestation Portions of this note were transcribed by Roro Burkett. I, Dr. Gates personally performed the history, physical exam and medical decision-making; I reviewed and confirmed the accuracy of the information in the transcribed note. Signed by: Brandy Rodriguez, 08/15/2016 and 0539. copies to: Dianne Lofton Howard L MD Aug 15, 2016 01:40 RORO BURKETT Aug 15, 2016 01:47
[2016-08-15] MEDS ORDERED: MethylprednisoLONE Sodium Succinate 40 mg/mL Inj IVPUSH ONE (05:45)
[2016-08-15] MEDS ORDERED: Alum-Mag Hydrox-Simeth 30 mL Suspension PO PRN ×2 (05:50→10:15)
[2016-08-15] MEDS ORDERED: Ondansetron 2 mg/mL 2 mL Inj IVPUSH PRN ×2 (05:50→10:15)
--- NOTE | 2016-08-15 08:00 | NUR ---
Admit MPC from ED Pt admitted prior to this RNs shift. Pt appears comfortable, denies having pain. on NC 2L humidified air. Pt A&O to name, age and year, reorientated to facility and town. Pt states reason of coming to the ED last night being "I couldn't catch my breath" Call was made to pts place of residence, [facility] [place] @[phone], spoke with a med tech and recd more info re pts condition. Pt takes O2 at home, 2L via NC, refuses to wear it in common areas, but compliant in room. Lives there with Tabitha whom suffers from Alzheimers. Pts son Faustino called, pt gave permission to update son of pts condition [phone]. Son and on their way up from [facility]. Orders pending from . Bed in low position, call light in reach, will continue with frequent monitoring.
[2016-08-15] MEDS ORDERED: Albuterol-Ipratropium 3 mL Inhalation Solution NEB PRN (10:15)
[2016-08-15] MEDS ORDERED: Polyethylene Glycol (PEG) 17 Gm Powder PO PRN (10:15)
[2016-08-15] MEDS ORDERED: Furosemide 10 mg/mL 2 mL Inj IVPUSH ONE (10:15)
[2016-08-15] MEDS: Albuterol 2.5 mg/3 mL Inhalation Solution NEB PRN (11:12)
--- NOTE | 2016-08-15 11:19 | NUR ---
Social Work: Initial Assessment D: Per EMR review, pt is an 89 year old female admitted for status asthmaticus, pneumonia. P tis Medicare with [employer] Supplement; pt has no LTC or VA Benefits. PCP is TERRY Cadet. NOK is Zakiya Caraballo, dtr, . POLST completed and on file but requested due to poor quality of copy. Pt has not completed advanced directives- information provided to pt. Readmit score is not entered at this time. Pt is a readmit from 07/25/16 and was discharge back to her [facility] CHAIN SAW MECHANIC met with pt at bedside. Sw role and contact information provided. See initial assessment. Pt confirms that she is a still a resident at [facility] and that she is on the assisted side. Pt lives with her spouse. Pt states they assist her with medications. Pt states she uses a FWW at baseline and does not drive. Pt has never had or skilled rehab placements and would like to return to her [facility] once medically stable. CHAIN SAW MECHANIC informed her that [facility] will need to come see her before she can return. She states she understands and provided verbal consent for CH[employer]W MECHANIC to speak with staff at [facility]. t/c to [facility]. CHAIN SAW MECHANIC spoke with ted [facility]. She confirms that they assist the pt with medication management. They also assist her with some ADLs including dressing, showers and maintaining her oxygen. Pt is on 2L at baseline. They will need to complete a bedside assessment prior to acceptance back. ROSA Nelson will be the one to complete this. CHAIN SAW MECHANIC will need to call her on Tuesday to arrange for this. A: Pt who lives at [facility]. P: CHAIN SAW MECHANIC to continue to follow pt's clinical course and to call [facility] RN on Tuesday to setup a bedside assessment for the pt. TERESA Renteria Addendum: 08/15/16 at 1133 by YOSELIN FUENTES SS Amended: Links added.
--- NOTE | 2016-08-15 11:21 | DRSVH ---
PROCEDURE: X-RAY CHEST, TWO VIEWS ([id number]) INDICATIONS: SOB TECHNIQUE: 2 views of the chest were acquired. COMPARISON: [facility], CR, XR CHEST 1VW (PORTABLE), 08/13/2016, 17:40. FINDINGS: Surgical changes and devices: Unchanged appearance Lungs and pleura: No pleural effusions or pneumothorax. Right basilar opacities appear improved. The re is also improved aeration of the left costophrenic angle and lower lobe. Diffuse scarring/atelect asis Mediastinum: Mediastinal contours are normal. Heart size is normal. Numerous mitral valvular calci fications as before Bones and chest wall: No suspicious bony abnormalities. Soft tissues appear unremarkable. IMPRESSION: Improved bibasilar opacities since 08/13/16 Dictated by: Kenneth Aburto M.D. on 08/15/2016 at 11:17 Approved by: Kenneth Aburto M.D. on 08/15/2016 at 11:21
[2016-08-15] MEDS: Insulin Human REGular 300 Unit/3 mL Inj SUBQ SCH ×3 (11:30→21:07)
[2016-08-15 12:06] LABS: BASOPHILS % (AUTO) 0.3 % (0-3); EOSINOPHILS % (AUTO) 0 % (0-5); MONOCYTES % (AUTO) 3.2 % (4-12); Mean Corpuscular Hemoglobin 27.1 pg (27.0-35.0); NEUTROPHILS % (AUTO) 89.7 % (40-74); Platelet Count 147 bil/L (150-400)
[2016-08-15 12:18] LABS: INR 1.91 ratio
[2016-08-15 12:49] LABS: TROPONIN T 0.02 ug/L (0.0-0.011)
[2016-08-15 13:10] LABS: Magnesium 1.8 mg/dL (1.6-2.6)
[2016-08-15 14:47] LABS: APPEARANCE,URINE CLEAR (CLEAR,HAZY); COLOR,URINE YELLOW (YELLOW)
[2016-08-15 14:48] LABS: OCCULT BLOOD,URINE NEGATIVE (NEGATIVE); UROBILINOGEN,URINE NORMAL (NORMAL)
--- NOTE | 2016-08-15 16:29 | PCM.HPMED ---
Subjective Date of Service Aug 15, 2016 Primary Provider: Admitting Physician: Evelio Mendez MD Primary Care Physician: Dianne Lofton Attending Physician: Evelio Mendez MD Chief Complaint: "i'm depressed, I just want to end it" History of Present Illness: 89 year old female with a history of HTN, CHF, DM and renal disease presenting to the ED via EMS in reported respiratory distress. She lives in [facility]. She was in the ED on 08/13/11 at which time her workup was fairly unremarkable. She was apparently suspected of having pneumonia but it's not clear if she was started on Abx or not and was discharged back home at that time. Today patient reports having ongoing shortness of breath for the past several months that has been worse over the past few days associated with cough, rhinorrhea, subjective fever, chills and generalized malaise. She says she is generally tired of living and wishes she could soon. She otherwise denies any specific pain. In the ED no new labs or imaging was obtained and instead she received a dose of IV Solu-Medrol and Nebs for presumed asthma exacerbation Allergies Coded Allergies: Penicillins (Verified Adverse Reaction, Mild, Diarrhea, 08/15/16) Home Medications Ascorbic Acid (Vitamin C) 500 Mg Capsule.er 500 MG PO DAILY (Reported) Aspirin Chew (Aspirin Chew) 81 Mg Chew 81 MG PO DAILY (Reported) Calcium Carbonate/Vitamin D3 (Calcium 600 + Vit D3 400 Tab) 600 Mg-400 Tablet 1 EACH PO DAILY (Reported) Cholecalciferol (Vitamin D3) (Vitamin D3) 1,000 Unit Tab.chew 1,000 UNIT PO DAILY (Reported) Docusate Sodium (Colace) 100 Mg Capsule 50 MG PO DAILY (Reported) Linagliptin (Tradjenta) 5 Mg Tablet 5 MG PO DAILY (Reported) Losartan Potassium (Losartan Potassium) 25 Mg Tablet 25 MG PO DAILY (Reported) Melatonin (Melatonin) 3 Mg Tablet 3 MG PO HS (Reported) Metformin ER (Metformin ER) 500 Mg Tablet 500 MG PO BID (Reported) Metoprolol Tartrate (Metoprolol Tartrate) 25 Mg Tablet 25 MG PO BID (Reported) Multivitamin (Multi Vitamin Daily) 1 Each Tablet 1 EACH PO DAILY (Reported) Simvastatin (Simvastatin) 10 Mg Tablet 10 MG PO HS (Reported) Torsemide (Demadex) 20 Mg Tablet 20 MG PO DAILY Prescribed by: YENI BELCHER DO Warfarin Sodium (Warfarin Sodium) 5 Mg Tablet 7.5 MG PO Tue/Tue (Reported) 7.5mg (1.5 tabs) on Tuesday and Tuesday. Warfarin Sodium (Warfarin Sodium) 5 Mg Tablet 5 MG PO Tue/Tue/Tue//Sat ( Reported) 5mg on Tuesday, Tuesday, Tuesday, , Tuesday As needed Acetaminophen (Acetaminophen) 325 Mg Capsule 650 MG PO TID PRN PRN For Pain ( Reported) Albuterol Sulfate (Ventolin HFA Inhaler) 200 Puff/18 Gm Inhaler 2 PUFF INH Q6- 8H PRN PRN For Wheezing (Reported) NEEDED, UP TO 4 TREATMENTS PER DAY Benzonatate (Benzonatate) 200 Mg Capsule 200 MG PO TID PRN PRN For Cough ( Reported) Bisacodyl (Dulcolax) 5 Mg Tablet.dr 10 MG PO BID PRN PRN For Constipation ( Reported) Guaifenesin (Mucinex) 600 Mg Tablet.er 600 MG PO BID PRN PRN For Cough (Reported ) Polyethylene Glycol 3350 (Polyethylene Glycol 3350) 17 Gm Powd.pack 17 GM PO DAILY PRN PRN For Constipation (Reported) diphenhydrAMINE HCl (Benadryl) 25 Mg Capsule 12.5 MG PO HS PRN PRN (Reported) Exam Vital Signs & I/O Vital Sign- Last 8 Hours Date Time Temp Pulse Resp B/P Pulse Ox O2 Delivery O2 Flow Rate FiO2 08/15/16 15:07 Supplement Oxygen 08/15/16 13:56 36.3 70 105/65 94 Nasal Cannula 1.00 08/15/16 11:14 78 18 88 Nasal Cannula 2.00 08/15/16 10:19 70 08/15/16 10:17 36.6 70 101/65 94 Nasal Cannula 1.00 Lab & Micro Results Laboratory Tests Test 08/15/16 11:40 08/15/16 13:44 White Blood Count 3.7th/mm3 (3.8-10.1) Red Blood Count 4.43mil/mm3 (3.90-5.20) Hemoglobin 12.0g/dL (12.0-15.6) Hematocrit 40.3% (35.0-46.0) Mean Corpuscular Volume 91.0fL (81-100) Mean Corpuscular Hemoglobin 27.1pg (27.0-35.0) Mean Corpuscular Hemoglobin Concent 29.8% (32.0-37.0) Red Cell Distribution Width 15.7% (12.3-15.4) Platelet Count 147bil/L (150-400) Neutrophils (%) (Auto) 89.7% (40-74) Lymphocytes (%) (Auto) 6.5% (14-46) Monocytes (%) (Auto) 3.2% (4-12) Eosinophils (%) (Auto) 0% (0-5) Basophils (%) (Auto) 0.3% (0-3) Prothrombin Time 20.7sec (8.1-12.5) Prothromb Time International Ratio 1.91ratio Activated Partial Thromboplast Time 33.8sec (22.8-33.0) Sodium Level 136mEq/L (134-144) Potassium Level 4.4mEq/L (3.5-5.2) Chloride Level 90mEq/L (97-108) Carbon Dioxide Level 29mmol/L (18-29) Blood Urea Nitrogen 28mg/dL (8-27) Creatinine 1.42mg/dL (0.57-1.00) Estimat Glomerular Filtration Rate 50mL/min (>59) Glucose Level 167mg/dL (60-99) Calcium Level 9.3mg/dL (8.5-10.1) Magnesium Level 1.8mg/dL (1.6-2.6) Total Bilirubin 1.6mg/dL (0.0-1.2) Aspartate Amino Transf (AST/SGOT) 42U/L (0-50) Alanine Aminotransferase (ALT/SGPT) 22U/L (0-32) Alkaline Phosphatase 77U/L (25-165) Troponin T 0.020ug/L (0.0-0.011) Pro-B-Type Natriuretic Peptide 9557pg/mL (0-738) Total Protein 6.2g/dL (6.4-8.4) Albumin 4.0g/dL (3.4-5.0) Procalcitonin 0.17ng/mL (0.00-0.08) Thyroid Stimulating Hormone (TSH) 2.530uIU/mL (0.450-4.500) Urine Color Yellow (YELLOW) Urine Appearance Clear (CLEAR,HAZY) Urine pH 5.0 (5.0-8.0) Urine Specific [place] 1.025 (1.003-1.035) Urine Protein Tracemg/dL (NEG,TRACE) Urine Glucose (UA) Negativemg/dL (NEGATIVE) Urine Ketones Negativemg/dL (NEGATIVE) Urine Occult Blood Negative (NEGATIVE) Urine Nitrite Negative (NEGATIVE) Urine Bilirubin Negative (NEGATIVE) Urine Urobilinogen Normalmg/dL (NORMAL) Urine Leukocyte Esterase Negative (NEGATIVE) Urine RBC 0-2/hpf (0-2) Urine WBC 0-5/hpf (0-5) Urine Epithelial Cells None/hpf (NONE-MOD) Urine Crystals None seen (NONE SEEN) Urine Bacteria None/hpf (NONE-FEW) Urine Hyaline Casts None/lpf (NONE) Urine Granular Casts None seen (NONE SEEN) Urine Waxy Casts None seen (NONE SEEN) Urine Red Blood Cell Casts None seen (NONE SEEN) Urine White Blood Cell Casts None seen (NONE SEEN) Urine Mucus None seen (None Seen) Urine Trichomonas None seen (NONE SEEN) Urine Yeast None (NONE SEEN) Urinalysis Comment None Urine Culture Reflexed Not indicated Microbiology 08/15/16 Blood Culture, Received Pending 08/15/16 Adenovirus DNA (PCR) - Final, Complete Not Detected 08/15/16 Coronavirus 229E PCR - Final, Complete Not Detected 08/15/16 Coronavirus HKU1 PCR - Final, Complete Not Detected 08/15/16 Coronavirus NL63 PCR - Final, Complete Not Detected 08/15/16 Coronavirus OC43 PCR - Final, Complete Not Detected 08/15/16 Influenza Type A (PCR) - Final, Complete Not Detected 08/15/16 Influenza Type B (PCR) - Final, Complete Not Detected 08/15/16 Human Metapneumovirus (PCR) (MARIELLE) - Final, Complete Not Detected 08/15/16 Rhinovirus (PCR)(MARIELLE) - Final, Complete Not Detected 08/15/16 Parainfluenza Virus Type 1 (PCR) - Final, Complete Not Detected 08/15/16 Parainfluenza Virus Type 2 (PCR) - Final, Complete Not Detected 08/15/16 Parainfluenza Virus Type 3 (PCR) - Final, Complete Not Detected 08/15/16 Parainfluenza Virus Type 4 (NAAT) - Final, Complete Not Detected 08/15/16 Respiratory Syncytial Virus (PCR)DC - Final, Complete Respiratory Syncytial Virus 08/15/16 Chlamydia pneumoniae (PCR) - Final, Complete Not Detected 08/15/16 Mycoplasma pneumoniae DNA Detection - Final, Complete Result Diagram: 08/15/16 1140 08/15/16 1140 Review of Systems: Constitutional: Negative, except as otherwise mentioned in the history above. Ophthalmologic: Negative, except as otherwise mentioned in the history above. Cardiovascular: Negative, except as otherwise mentioned in the history above. Respiratory: Negative, except as otherwise mentioned in the history above. Gastrointestinal: Negative, except as otherwise mentioned in the history above. Genitourinary: Negative, except as otherwise mentioned in the history above. Musculoskeletal: Negative, except as otherwise mentioned in the history above. Neurological: Negative, except as otherwise mentioned in the history above. Psychiatric: Negative, except as otherwise mentioned in the history above. Hematologic/Lymphatic: Negative, except as otherwise mentioned in the history above. Allergic/Immunologic: Negative, except as otherwise mentioned in the history above. 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) Appendectomy Hysterectomy Pacemaker insertion Family History Father with lung cancer Social History Hx Alcohol Use: No Hx Substance Use: No Hx Tobacco Use: No Smoking Status: Never Smoker Exam Vital Signs Vital Sign - Last Date Time Temp Pulse Resp B/P Pulse Ox O2 Delivery O2 Flow Rate FiO2 08/15/16 15:07 Supplement Oxygen 08/15/16 13:56 36.3 70 105/65 94 1.00 08/15/16 11:14 18 General: Alert, Oriented X3, Cooperative, No Acute Distress Head: Normal Eyes: PERRLA, EOMI, Scleral Anicteric Nose: Mucous Membr Moist/[place] Mouth: Mucous Membr Moist/[place] Chest & Lungs: Chest Wall Normal, Coarse breath sounds (upper resp), Expiratory wheezes (bilat), Crackles (fine bibasilar) Cardiovascular: Regular Rate/Rhythm Abdomen: Non-tender, Non-distended, Normoactive bowel tones, Soft Extremities: Edema (1+ edema in LE bilat) Skin: Other (erythema of LE bilat.) Neurological: Grossly Neurologically Intact, Cranial Nerves 2-12 Intact, Normal Speech Additional Information: Psych: mood appear depressed with patient repeatedly expressing wishes that she could Lab and Diagnostics Result Diagram: 08/15/16 1140 08/15/16 1140 X-Rays, CTs and MRIs Date of Service: 08/15/16 1015 PROCEDURE: X-RAY CHEST, TWO VIEWS ([id number]) IMPRESSION: Improved bibasilar opacities since 08/13/16 Dictated by: Kenneth Aburto M.D. on 08/15/2016 at 11:17 Approved by: Kenneth Aburto M.D. on 08/15/2016 at 11:21 Assessment & Plan 89 year old female with a history of CHF on Lasix, DM, HTN, hyperlipidemia, and afib anticoagulated on warfarin brought to the ED by EMS with report of shortness of breath and generalized malaise. # Acute dyspnea and possible acute hypoxic respiratory failure, present on admission. improving - ? if combination of acute diastolic CHF and possible acute asthma exacerbation due to acute RSV infection - IV Lasix x 1 - f/u I/O closely - Duo-Neb and Albuterol prn - will start a short course of Prednisone # Acute RSV infection - care as noted above # Possible acute on chronic heart failure with preserve EF. - Echo less than one month ago showed hyperdynamic heart, EF >80% with concentric LV, pacer, bioprosthetic mitral valve, and dilated right heart - IV Lasix as noted above - Restart home dose torsemide in am # Possible acute asthma exacerbation (although I don't see asthma as a listed official diagnosis for this patient in the past but she does have Albuterol prn on her home med) - plan as noted above # Acute kidney injury with CKD. - Pt has history of CKD, baseline Cr appears to be 1 - 1.05. Cr 1.42 on admit. - f/u closely - try to avoid nephrotoxic meds # Atrial fibrillation, chronic. Stable - Continue metoprolol - Continue home warfarin (dose per pharmacy) - f/u daily INR # Hyperbilirubinemia, chronic. 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 - Continue warfarin - Continue to monitor INR # Diabetes Mellitus Type 2. - Hold metformin and Tradjenta for now - ISS # Hyperlipidemia - Simvastatin continued # Insomnia, chronic. stable # Hypertension - Stable # 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 # Goals of care - palliative care consult in am Expected length of hospital stay is greater than 2 midnights and possibly 2-3 days GI Prophylaxis: Proton Pump Inhibitor VTE Prophylaxis: Theraputic Anticoag with Warfarin VTE Mechanical Devices: Venous Foot Pump Resuscitation Status: DNR/DNI:Do Not Resuscitate/Intubate (discussed and verified with patient) Time spent 65 min Ozzie Robles Aug 15, 2016 16:29
[2016-08-15] MEDS: Heparin 5,000 Unit/mL Inj SUBQ SCH (16:36)
--- NOTE | 2016-08-15 17:04 | PCM.CONPHA ---
Subjective "i'm depressed, I just want to end it Reason for Pharmacy Consult: Anticoagulation Management Assessment/Plan Assessment/Plan Warfarin per pharmacy: The patient has a history of atriall fibrillation and is on a home dose of warfarin 7.5mg on Mon and Fri, 5mg all of the other days of the week. INR today is 1.91. Will give the normal 5mg dose today. INRs ordered. Shira Crawford [facility] Aug 15, 2016 17:04
[2016-08-15] MEDS: predniSONE 20 mg Tablet PO SCH (18:11)
[2016-08-16] VITALS (11 sets, daily range): BP systolic 106–152; BP diastolic 63–83; PULSE 66–74; RESP 18–22; O2SAT 93–99
[2016-08-16] MEDS: Heparin 5,000 Unit/mL Inj SUBQ SCH ×3 (00:32→16:51)
[2016-08-16 06:30] LABS: INR 2.4 ratio
[2016-08-16 06:33] LABS: Mean Corpuscular Volume 90.7 fL (81-100)
--- NOTE | 2016-08-16 06:33 | NUR ---
Pain Pt complaint of generalized rib/chest pain from coughing and breathing. APAP was given with little relief. Morphine later given and Pt reported significant relief and went to sleep. Pt has been sleeping comfortably most of shift.
[2016-08-16] MEDS: Insulin Human REGular 300 Unit/3 mL Inj SUBQ SCH ×4 (07:30→21:10)
[2016-08-16] MEDS ORDERED: 0.9% Sodium Chloride 1,000 ML IV ONE (08:00)
[2016-08-16] MEDS: predniSONE 20 mg Tablet PO SCH (08:48)
[2016-08-16] MEDS: Pantoprazole 20 mg ER24 Tablet PO SCH (08:49)
--- NOTE | 2016-08-16 10:45 | NUR ---
Blood cx's Call from micro for + blood cx's indicating staph. GOEL on floor and notified.
[2016-08-16] MEDS: Albuterol-Ipratropium 3 mL Inhalation Solution NEB SCH ×3 (11:18→21:20)
--- NOTE | 2016-08-16 11:32 | NUR ---
Palliative Care Palliative Care received verbal order from Dr Robles 08/16/16 to assist with goals of care. Patient is an 89 year old woman with hx of HTN, CHF, DM and renal disease. She presented 08/15/16 with respiratory distress and was admitted. She has had multiple trips to the ED for similar issues. Her most recent visit to the ED was 08/13/16 at which time her workup was fairly unremarkable. She was apparently suspected of having pneumonia, but it's not clear if she was started on abx or not and was discharged back home at that time. Per Dr Robles, patient has expressed that she is tired of living and wishes she could soon. Notes also state patient has expressed she is depressed. Patient lives at [facility] with her on the assisted side. Zakiya Caraballo (daughter) [phone], Faustino Whipple (son) [phone] Palliative Care to follow. Will see patient Tuesday08/17/16 - ok per Dr Robles. Seema Mcpherson
--- NOTE | 2016-08-16 13:30 | NUR ---
Evaluation completed. Please go to "Notes" then click on "Assessments and Notes" (bottom left corner of screen). Then select appropriate discipline tab on top of screen.
--- NOTE | 2016-08-16 13:50 | PCM.PHAPRO ---
Progress Date of Service: Aug 16, 2016 ANTICOAGULATION MANAGEMENT BY PHARMACY -INDICATION: AFIB -HOME DOSE: 7.5mg on Mon and Fri, 5mg all of the other days of the week -CONCURRENT ANTICOAGULATION: HEPARIN 5K BOLUSES Q8H -CRCL: 25.6 ML/MIN -COAG TRENDS: -Aug 16-Aug 1.91 2.40 ~ 0.49 5 ~ -[id number] SCORE: 6 PLAN: PATIENT IS BACK TO THERAPEUTIC RANGE WITH HOME DOSE OF 5 MG, WILL GIVE ANOTHER OT DOSE TONIGHT OF 5 MG TO KEEP IN RANGE. Pharmacy appreciates consult and will continue to monitor. THANKS! Mariah Uribe PharmD Aug 16, 2016 13:50
--- NOTE | 2016-08-16 14:37 | PCM.PNMED ---
Subjective Date of Service Aug 16, 2016 Subjective denies any new issues/complaints. continued cough and generalized malaise Exam Vital Signs Vital Sign - Last Date Time Temp Pulse Resp B/P Pulse Ox O2 Delivery O2 Flow Rate FiO2 08/16/16 11:18 74 22 95 Nasal Cannula 2.00 08/16/16 09:26 35.9 137/76 Intake and Output 08/15/16 08/15/16 08/16/16 Cumulative From/Thru 15:00 23:00 07:00 08/15/16 01:13 - 08/16/16 06:38 Intake Total 1136 ml 1135 ml 2271 ml Output Total 200 ml 200 ml 400 ml Balance 936 ml 935 ml 1871 ml Intake Oral 1136 ml 200 ml 1336 ml IV Total 935 ml 935 ml Output Urine Total 200 ml 200 ml 400 ml # Voids 2 2 # Bowel Movements 0 0 Exam General: Alert, Oriented X3, Cooperative, No Acute Distress Head: Normal Eyes: PERRLA, EOMI, Scleral Anicteric Nose: Mucous Membr Moist/[place] Mouth: Mucous Membr Moist/[place] Chest & Lungs: Chest Wall Normal, Coarse breath sounds (upper resp), Expiratory wheezes (bilat), Crackles (fine bibasilar) Cardiovascular: Regular Rate/Rhythm Abdomen: Non-tender, Non-distended, Normoactive bowel tones, Soft Extremities: Edema (1+ edema in LE bilat) Skin: Other (erythema of LE bilat.) Neurological: Grossly Neurologically Intact,Normal Speech Psych: mood appear depressed IVs and Medications Medications Reviewed: Medications were reviewed in detail Lab and Diagnostics Result Diagram: 08/16/1625 08/16/1625 X-Rays, CTs and MRIs Date of Service: 08/15/16 1015 PROCEDURE: X-RAY CHEST, TWO VIEWS ([id number]) IMPRESSION: Improved bibasilar opacities since 08/13/16 Dictated by: Kenneth Aburto M.D. on 08/15/2016 at 11:17 Approved by: Kenneth Aburto M.D. on 08/15/2016 at 11:21 Assessment & Plan 89 year old female with a history of CHF on Lasix, DM, HTN, hyperlipidemia, and afib anticoagulated on warfarin brought to the ED by EMS with report of shortness of breath and generalized malaise. # Acute dyspnea and possible acute hypoxic respiratory failure, present on admission. improving - ? if combination of acute diastolic CHF and possible acute asthma exacerbation due to acute RSV infection - f/u I/O closely - Duo-Neb and Albuterol prn - change Prednisone to IV Solu-Medrol # Acute RSV infection - care as noted above # Possible acute on chronic heart failure with preserve EF. - Echo less than one month ago showed hyperdynamic heart, EF >80% with concentric LV, pacer, bioprosthetic mitral valve, and dilated right heart - hold of on further diuresis given worsening renal function and CXR without significant sign of edema - hold home dose torsemide for now # Possible acute asthma exacerbation - plan as noted above # Acute kidney injury with CKD. poa. worsening - Pt has history of CKD, baseline Cr appears to be 1 - 1.05. - f/u closely - avoid nephrotoxic meds - give a trial of gentle IVF # Atrial fibrillation, chronic. Stable - Continue metoprolol - Continue home warfarin (dose per pharmacy) - f/u daily INR # Hyperbilirubinemia, chronic. 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 - Continue warfarin - Continue to monitor INR # Diabetes Mellitus Type 2. - Hold metformin and Tradjenta for now - ISS # Hyperlipidemia - Simvastatin continued # Insomnia, chronic. stable # Hypertension - Stable # 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 # Goals of care - palliative care consulted. will f/u w/ recs Dispo: 2-3 days GI Prophylaxis: Proton Pump Inhibitor VTE Prophylaxis: Theraputic Anticoag with Warfarin VTE Mechanical Devices: Venous Foot Pump Resuscitation Status: DNR/DNI:Do Not Resuscitate/Intubate (discussed and verified with patient) Time spent 35 min Ozzie Robles Aug 16, 2016 14:37
--- NOTE | 2016-08-16 14:42 | NUR ---
Communication ROSA Nelson from [facility] phoned this morning ([phone]), requesting an update on pt. Spoke with pt who stated it was okay to speak to Leslie and give an update. Per Leslie, pt uses 2L via NC at baseline.
--- NOTE | 2016-08-16 15:55 | NUR ---
Case Management: Unable to provide FIELD, patient was undergoing care by RN. Will attempt tomorrow. [email or web address]>
[2016-08-16] MEDS: MethylprednisoLONE Sodium Succinate 40 mg/mL Inj IVPUSH SCH (18:25)
[2016-08-17] VITALS (11 sets, daily range): BP systolic 137–177; BP diastolic 72–79; PULSE 69–73; RESP 20–22; O2SAT 92–97
[2016-08-17] MEDS: Heparin 5,000 Unit/mL Inj SUBQ SCH ×2 (01:23→08:07)
[2016-08-17] MEDS: MethylprednisoLONE Sodium Succinate 40 mg/mL Inj IVPUSH SCH ×3 (01:25→16:57)
--- NOTE | 2016-08-17 06:24 | NUR ---
Respiration/Mental status Pt appears SOB ,labored at rest, but stable overnight, a lot of wheezes at both upper airway, NEB by RT.Cough intermittently, unable to cough up sputum, sample needed, container at bedside. On 2L via NC, SPO2 94-95% on O2 2l. Alert, more confused overnight,anxious, insomnia, night hospitalist paged for sleeping med, no order given. Reoriented pt frequently, bed alarm on, call light within reach.
[2016-08-17 07:34] LABS: INR 3.89 ratio
[2016-08-17] MEDS: Pantoprazole 20 mg ER24 Tablet PO SCH (08:06)
[2016-08-17] MEDS: Insulin Human REGular 300 Unit/3 mL Inj SUBQ SCH ×4 (08:08→21:31)
[2016-08-17] MEDS: Albuterol-Ipratropium 3 mL Inhalation Solution NEB SCH ×4 (09:29→19:30)
--- NOTE | 2016-08-17 14:50 | PCM.CONPAL ---
Date of Service Aug 17, 2016 Date of Hospital Admission: Aug 15, 2016 at 05:59 Date of Palliative Consult: Aug 17, 2016 Requesting Provider: Ozzie Robles Reason Palliative Care Consult: Goals of Care Discussion Hospital Unit @time of consult: Medical/Pediatric Care Palliative Care Recommendation Summary of palliative recommendations: -Symptom management (Pain/other) SOB/ cough-- +RSV which may be contributing suspect also heart. LVH with hyperdynamic HD Cough MCI DM on low dose metformin and gliptin with fairly reasonable BG -DPOA/Advanced Directives/POLST-- POLST completed DNR/DNI comfort but OK hospitalization for IV, sx managment and hydration Patient Goals: 1. Patient wants to be told the truth about his/her illness, even if it is unpleasant. 2. Patient would like to be told prognosis when it can be predicted, to better guide treatment decisions. 3. Patient would choose quality of life over quantity of life, and defines quality as [ ]. 4. Patient would request that comfort care take priority over cognitive/mental confusion. Additional Medical Diagnoses with primary management by Hospitalist team include : Problems: End of Life Preferences DNR/DNI-she wants comfort but OK with ER and hospitalizations so redid POLST to reflect this but limits set at only IV/O2 and antibioitcs. Goals of Care Will try and address illness severity over the past 1-2 months. Resuscitation Status Resuscitation Status: DNR/DNI:Do Not Resuscitate/Intubate (discussed and verified with patient) Limited Interventions: Medications and IV Fluid POLST Updates/Changes Previous POLST?: Yes Antibiotics: Determine Use or Limitations Artificially Admin Nutrition: No Artifical Nutrition by Tube POLST Discussed with: Patient POLST Review Outcome: New Form Completed . Advanced Care Planning Address: POLST, Durable Power of Privacy Specialist Pain: Mild Symptom management: Depression (She verbalizes she thinks it is her time to ), Dyspnea, Pain Pt History History of Present Illness 89 year old female with a history of HTN, CHF, DM and renal disease presenting to the ED via EMS in reported respiratory distress. She lives in [facility]. She was in the ED on 08/13/11 at which time her workup was fairly unremarkable. She was apparently suspected of having pneumonia but it's not clear if she was started on Abx or not and was discharged back home at that time. Today patient reports having ongoing shortness of breath for the past several months that has been worse over the past few days associated with cough, rhinorrhea, subjective fever, chills and generalized malaise. She says she is generally tired of living and wishes she could soon. She otherwise denies any specific pain. She has had an intractable cough for 4-6 months but much worse the past 4-6 weeks. No sputum production, fever or chills. She has SOB at rest and SOB walking to her mailbox at [facility] She is followed by Dianne STEWART as PCP and Dr. Winter- cardiology. She has been living at [facility] with her who has some dementia and is assisted by her children -1 daughter and 2 sons. She has has multiple medical encounters-- ER or hospitalizations over the last month or 2 with hosp 07/20 ER for edema, 07/24- for CHF. 07/28 ER and then again 08/13. 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 Responsive Patient Symptoms Pain (current): None Tiredness/Fatigue: Moderate Nausea: None Depression: None Anxiety: Mild Drowsiness/Sleepiness: Moderate Anorexia: Moderate Shortness of Breath: Moderate Other recognizes some memory loss denies hypoglycemic episodes Palliative Performance Scale PPS Ambulation: Reduced PPS Activity: Unable to do most activity PPS Self-Care: Occasional assistance necessary PPS Intake: Normal or reduced PPS Conscious Level: Full or confusion Performance Scale: 70% Allergy Allergies Reviewed: Yes Medications Current Medications: Current Medications Heparin Sodium (Porcine) 5,000 unit Q8H SUBQ Last administered on 08/17/16 08: 07; Admin Dose 5,000 UNIT; Start 08/15/16 at 16:30; Stop 08/17/16 at 10:27; Status DC Aspirin 81 mg DAILY PO Last administered on 08/17/16 08:07; Admin Dose 81 MG; Start 08/16/16 at 08:30 Docusate Sodium 100 mg DAILY PO Last administered on 08/17/16 08:07; Admin Dose 100 MG; Start 08/16/16 at 08:30 Losartan Potassium 25 mg DAILY PO; Start 08/16/16 at 08:30; Stop 08/16/16 at 08: 30; Status DC Metoprolol Tartrate 25 mg BID PO Last administered on 08/17/16 08:07; Admin Dose 25 MG; Start 08/15/16 at 20:30 Torsemide 20 mg DAILY PO; Start 08/16/16 at 08:30; Stop 08/16/16 at 08:30; Status DC Atorvastatin Calcium 5 mg HS PO Last administered on 08/16/16 20:45; Admin Dose 5 MG; Start 08/15/16 at 21:00 Pharmacy Consult 1 ea DAILY@17 XX Last administered on 08/15/16 18:11; Admin Dose 1 EA; Start 08/15/16 at 17:00 Pantoprazole 20 mg DAILYAC PO Last administered on 08/17/16 08:06; Admin Dose 20 MG; Start 08/16/16 at 07:30 Prednisone 20 mg DAILY PO Last administered on 08/16/16 08:48; Admin Dose 20 MG ; Start 08/15/16 at 16:45; Stop 08/16/16 at 10:06; Status DC Albuterol/ Ipratropium 3 ml QIDWA NEB Last administered on 08/17/16 13:28; Admin Dose 3 ML; Start 08/16/16 at 11:00 Methylprednisolone Sodium Succinate 40 mg Q8H IVPUSH Last administered on 08:07; Admin Dose 40 MG; Start 08/16/16 at 16:30 Scheduled Ascorbic Acid (Vitamin C) 500 Mg Capsule.er 500 MG PO DAILY Aspirin Chew (Aspirin Chew) 81 Mg Chew 81 MG PO DAILY Azithromycin (Zithromax) 250 Mg Tablet 250 MG PO DAILY Calcium Carbonate/Vitamin D3 (Calcium 600 + Vit D3 400 Tab) 600 Mg-400 Tablet 1 EACH PO DAILY Cholecalciferol (Vitamin D3) (Vitamin D3) 1,000 Unit Tab.chew 1,000 UNIT PO DAILY Docusate Sodium (Colace) 100 Mg Capsule 50 MG PO DAILY Linagliptin (Tradjenta) 5 Mg Tablet 5 MG PO DAILY Losartan Potassium (Losartan Potassium) 25 Mg Tablet 25 MG PO DAILY Melatonin (Melatonin) 3 Mg Tablet 3 MG PO HS Metformin ER (Metformin ER) 500 Mg Tablet 500 MG PO BID Metoprolol Tartrate (Metoprolol Tartrate) 25 Mg Tablet 25 MG PO BID Multivitamin (Multi Vitamin Daily) 1 Each Tablet 1 EACH PO DAILY Simvastatin (Simvastatin) 10 Mg Tablet 10 MG PO HS Torsemide (Demadex) 20 Mg Tablet 20 MG PO DAILY Warfarin Sodium (Warfarin Sodium) 5 Mg Tablet 7.5 MG PO Tue/Tue 7.5mg (1.5 tabs) on Tuesday and Tuesday. Warfarin Sodium (Warfarin Sodium) 5 Mg Tablet 5 MG PO Sun/Tue/Tue//Sat 5mg on Tuesday, Tuesday, Tuesday, , Tuesday Scheduled PRN Acetaminophen (Acetaminophen) 325 Mg Capsule 650 MG PO TID PRN PRN For Pain Albuterol Sulfate (Ventolin HFA Inhaler) 200 Puff/18 Gm Inhaler 2 PUFF INH Q6- 8H PRN PRN For Wheezing NEEDED, UP TO 4 TREATMENTS PER DAY Benzonatate (Benzonatate) 200 Mg Capsule 200 MG PO TID PRN PRN For Cough Bisacodyl (Dulcolax) 5 Mg Tablet.dr 10 MG PO BID PRN PRN For Constipation Guaifenesin (Mucinex) 600 Mg Tablet.er 600 MG PO BID PRN PRN For Cough Polyethylene Glycol 3350 (Polyethylene Glycol 3350) 17 Gm Powd.pack 17 GM PO DAILY PRN PRN For Constipation diphenhydrAMINE HCl (Benadryl) 25 Mg Capsule 12.5 MG PO HS PRN PRN Objective Findings Exam Vital Sign - Last Date Time Temp Pulse Resp B/P Pulse Ox O2 Delivery O2 Flow Rate FiO2 08/17/16 14:23 Supplement Oxygen 08/17/16 13:28 70 20 92 2.00 08/17/16 09:52 36.6 137/72 Intake and Output 08/16/16 08/16/16 08/17/16 Cumulative From/Thru 15:00 23:00 07:00 08/15/16 01:13 - 08/17/16 06:57 Intake Total 187 ml 1000 ml 400 ml 3858 ml Output Total 400 ml 450 ml 1250 ml Balance 187 ml 600 ml -50 ml 2608 ml Intake Oral 1000 ml 400 ml 2736 ml IV Total 187 ml 1122 ml Output Urine Total 400 ml 450 ml 1250 ml # Voids 2 1 5 # Bowel Movements 0 1 1 General: Alert, Oriented, Person, Place, Situation, Moderate distress (during spasms of coughing--when settles-- NAD) HEENT: PERRLA, EOMI, Scleral Anicteric Heart: Regular Rate/Rhythm, Tachycardia Lungs: Coarse, Wheezes Abdomen: Soft Neuro: Cranial Nerve 3-12 Intact, Other (mentation is good for age, appropriate -very proud fo her family.) Extremities: Edema (1+) Lab/Diagnostics Lab and Imaging results reviewed in detail in EMR. CR 1.42 INR 1.91, Pro BNP 9557 albumin 4 Patient/Family Conference Members Present Family Members Present patient, left msg with her daughter Discussion/Goals of Care Discussion FAMILY UNDERSTANDING OF DISEASE: Patient has understanding about her illness but not about the consequence of constantly being at ER or hospital in the last 2 months. She is very adamant that she and her want no heroics and want to in peace. She has compensated for orthopnea with sleeping in a recliner. DISEASE PROGRESSION/EVIDENCE OF DECLINE: SYMPTOM BURDEN: primarily SOB GOALS: Would prefer to stay at apt with her HOPES/WORRIES: FAMILY WISHES/VALUES: Time spent Total time 70 minutes; >50% face to face with patient and/or family, providing counselling regarding plans and recommendations, and in care coordination with his/her medical teams. Which included redoing the POLST and review of sx and skin I also spent an additional [ ] minutes counseling for advanced care planning with the patient/the patients family/the surrogate decision maker. copies to: Reba Winter MD; Dianne Lofton Deborah A MD Aug 17, 2016 14:50
--- NOTE | 2016-08-17 14:56 | PCM.PNMED ---
Subjective Date of Service Aug 17, 2016 Subjective denies any new issues/complaints. continued cough and generalized malaise Exam Vital Signs Vital Sign - Last Date Time Temp Pulse Resp B/P Pulse Ox O2 Delivery O2 Flow Rate FiO2 08/17/16 14:45 36.4 70 22 149/76 94 Nasal Cannula 2.00 Intake and Output 08/16/16 08/16/16 08/17/16 Cumulative From/Thru 15:00 23:00 07:00 08/15/16 01:13 - 08/17/16 06:57 Intake Total 187 ml 1000 ml 400 ml 3858 ml Output Total 400 ml 450 ml 1250 ml Balance 187 ml 600 ml -50 ml 2608 ml Intake Oral 1000 ml 400 ml 2736 ml IV Total 187 ml 1122 ml Output Urine Total 400 ml 450 ml 1250 ml # Voids 2 1 5 # Bowel Movements 0 1 1 Exam General: Alert, Oriented X3, Cooperative, No Acute Distress Head: Normal Eyes: PERRLA, EOMI, Scleral Anicteric Nose: Mucous Membr Moist/[place] Mouth: Mucous Membr Moist/[place] Chest & Lungs: Chest Wall Normal, Coarse breath sounds (upper resp), Expiratory wheezes (bilat), Crackles (fine bibasilar) Cardiovascular: Regular Rate/Rhythm Abdomen: Non-tender, Non-distended, Normoactive bowel tones, Soft Extremities: Edema (1+ edema in LE bilat) Skin: Other (erythema of LE bilat.) Neurological: Grossly Neurologically Intact,Normal Speech IVs and Medications Medications Reviewed: Medications were reviewed in detail Lab and Diagnostics Result Diagram: 08/16/16 0525 08/17/16 0655 X-Rays, CTs and MRIs Date of Service: 08/15/16 1015 PROCEDURE: X-RAY CHEST, TWO VIEWS ([id number]) IMPRESSION: Improved bibasilar opacities since 08/13/16 Dictated by: Kenneth Aburto M.D. on 08/15/2016 at 11:17 Approved by: Kenneth Aburto M.D. on 08/15/2016 at 11:21 Assessment & Plan 89 year old female with a history of CHF on Lasix, DM, HTN, hyperlipidemia, and afib anticoagulated on warfarin brought to the ED by EMS with report of shortness of breath and generalized malaise. # Acute dyspnea and possible acute hypoxic respiratory failure, present on admission. improving - ? if combination of acute diastolic CHF and possible acute asthma exacerbation due to acute RSV infection - f/u I/O closely - Duo-Neb and Albuterol prn - c/w IV Solu-Medrol # Acute RSV infection - care as noted above # Possible acute on chronic heart failure with preserve EF. - Echo less than one month ago showed hyperdynamic heart, EF >80% with concentric LV, pacer, bioprosthetic mitral valve, and dilated right heart - consider limited echo - hold of on further diuresis given worsening renal function and CXR without significant sign of edema - hold home dose torsemide for now # Possible acute asthma exacerbation - plan as noted above # Acute kidney injury with CKD. poa. - Pt has history of CKD, baseline Cr appears to be 1 - 1.05. - f/u closely - avoid nephrotoxic meds - improving with a trial of gentle IVF # Atrial fibrillation, chronic. Stable - Continue metoprolol - Continue home warfarin (dose per pharmacy) - f/u daily INR # Hyperbilirubinemia, chronic. 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 - Continue warfarin - Continue to monitor INR # Diabetes Mellitus Type 2. - Hold metformin and Tradjenta for now - ISS # Hyperlipidemia - Simvastatin continued # Insomnia, chronic. stable # Hypertension - Stable # 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 # Goals of care - palliative care consulted. will f/u w/ recs Dispo: 2-3 days GI Prophylaxis: Proton Pump Inhibitor VTE Prophylaxis: Theraputic Anticoag with Warfarin VTE Mechanical Devices: Intermittant Pneumatic CD Resuscitation Status: DNR/DNI:Do Not Resuscitate/Intubate (discussed and verified with patient) Ozzie Robles Aug 17, 2016 14:56
--- NOTE | 2016-08-17 18:09 | NUR ---
Case Management: Explained IMM to patient at 1650, all questions answered. Signed original in chart, copy given to patient. Marcelina Hernandez RN
[2016-08-17] MEDS ORDERED: LORazepam 1 mg Tablet PO PRN (21:00)
--- NOTE | 2016-08-17 21:20 | NUR ---
Blood Culture Blood culture (08/15): G+Cocci (Staph?).No ABX ordered, Dr. De La Fuente notified. not concerned,maybe due to "blood contamination",no order given.
[2016-08-18] VITALS (13 sets, daily range): BP systolic 129–148; BP diastolic 63–77; PULSE 68–70; RESP 18–28; O2SAT 88–98
[2016-08-18] MEDS: MethylprednisoLONE Sodium Succinate 40 mg/mL Inj IVPUSH SCH ×3 (00:04→17:17)
[2016-08-18] MEDS: Furosemide 10 mg/mL 4 mL Inj IVPUSH SCH ×2 (03:11→09:10)
--- NOTE | 2016-08-18 03:20 | PCM.PNMED ---
Subjective Date of Service Aug 18, 2016 Subjective Called to see pt for increased hypoxia and confusion.Pt did get 1 mg ativan at about 9pm. Exam Vital Signs Current Medications Aspirin 81 mg DAILY PO Last administered on 08/17/16 08:07; Admin Dose 81 MG; Start 08/16/16 at 08:30 Docusate Sodium 100 mg DAILY PO Last administered on 08/17/16 08:07; Admin Dose 100 MG; Start 08/16/16 at 08:30 Losartan Potassium 25 mg DAILY PO; Start 08/16/16 at 08:30; Stop 08/16/16 at 08: 30; Status DC Torsemide 20 mg DAILY PO; Start 08/16/16 at 08:30; Stop 08/16/16 at 08:30; Status DC Pantoprazole 20 mg DAILYAC PO Last administered on 08/17/16 08:06; Admin Dose 20 MG; Start 08/16/16 at 07:30 Albuterol/ Ipratropium 3 ml QIDWA NEB Last administered on 08/17/16 19:30; Admin Dose 3 ML; Start 08/16/16 at 11:00 Methylprednisolone Sodium Succinate 40 mg Q8H IVPUSH Last administered on 00:04; Admin Dose 40 MG; Start 08/16/16 at 16:30 Lorazepam 1 mg HS PRN PO Last administered on 08/17/16 21:31; Admin Dose 1 MG ; Start 08/17/16 at 21:00 Furosemide 40 mg DAILY IVPUSH; Start 08/18/16 at 03:05; Status UNV Vital Sign - Last Date Time Temp Pulse Resp B/P Pulse Ox O2 Delivery O2 Flow Rate FiO2 08/18/16 02:29 69 24 133/77 88 OxyMask 2.00 08/17/16 20:43 36.9 Intake and Output 08/17/16 08/17/16 08/18/16 Cumulative From/Thru 15:00 23:00 07:00 08/15/16 01:13 - 08/17/16 19:18 Intake Total 1000 ml 4858 ml Output Total 1400 ml 2650 ml Balance -400 ml 2208 ml Intake Oral 1000 ml 3736 ml IV Total 1122 ml Output Urine Total 1400 ml 2650 ml # Voids 3 8 # Bowel Movements 1 2 Exam Consttutional:Elderly woman who is slightly drowsy Head:NC/AT Chest :decreased BS at right base about 1/[address].Antereior with rhonchi COR:RRR,S1,S2 Abd:soft,NT,BS+ EXT:2+ BL pedal edema Neuro: Very drowsy and arouses to painful stimuli,moves all extremities Lab and Diagnostics Result Diagram: 08/16/16 0525 08/17/16 0655 X-Rays, CTs and MRIs Date of Service: 08/15/16 1015 PROCEDURE: X-RAY CHEST, TWO VIEWS ([id number]) IMPRESSION: Improved bibasilar opacities since 08/13/16 Dictated by: Kenneth Aburto M.D. on 08/15/2016 at 11:17 Approved by: Kenneth Aburto M.D. on 08/15/2016 at 11:21 12-lead ECG V paced at 70 Assessment & Plan 89 year old female with a history of CHF on Lasix, DM, HTN, hyperlipidemia, and afib anticoagulated on warfarin brought to the ED by EMS with report of shortness of breath and generalized malaise. # Acute dyspnea and possible acute hypoxic respiratory failure, present on admission. improving - ? if combination of acute diastolic CHF and possible acute asthma exacerbation due to acute RSV infection - f/u I/O closely - Duo-Neb and Albuterol prn - c/w IV Solu-Medrol # Acute RSV infection - care as noted above # Possible acute on chronic heart failure with preserve EF. - Echo less than one month ago showed hyperdynamic heart, EF >80% with concentric LV, pacer, bioprosthetic mitral valve, and dilated right heart - consider limited echo - hold of on further diuresis given worsening renal function and CXR without significant sign of edema - hold home dose torsemide for now # Possible acute asthma exacerbation - plan as noted above # Acute kidney injury with CKD. poa. - Pt has history of CKD, baseline Cr appears to be 1 - 1.05. - f/u closely - avoid nephrotoxic meds - improving with a trial of gentle IVF # Atrial fibrillation, chronic. Stable - Continue metoprolol - Continue home warfarin (dose per pharmacy) - f/u daily INR # Hyperbilirubinemia, chronic. 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 - Continue warfarin - Continue to monitor INR # Diabetes Mellitus Type 2. - Hold metformin and Tradjenta for now - ISS # Hyperlipidemia - Simvastatin continued # Insomnia, chronic. stable # Hypertension - Stable # 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 # Goals of care - palliative care consulted. will f/u w/ recs Dispo: 2-3 days Called to see pt for increasing lethargy and hypoxia; CXR shows increased right pleural effusion and increased pedal edema with 6 kg weight gain so will diurese with iv lasix .ABG done also with results pending. After further review of chart POLST form states DNR/DNI/comfort measures only so is not Bipap candidiate. Critical care Time spent: 30 minutes GI Prophylaxis: Proton Pump Inhibitor VTE Prophylaxis: Theraputic Anticoag with Warfarin VTE Mechanical Devices: Intermittant Pneumatic CD Resuscitation Status: DNR/DNI:Do Not Resuscitate/Intubate (discussed and verified with patient) Limited Interventions: Medications and IV Fluid Time spent 30 minutes Laura De La Fuente MD Aug 18, 2016 03:20
--- NOTE | 2016-08-18 03:24 | ABG ---
DateTimeAnalyzed 03:17:00 -_ pH ____7.305 - 7.350 7.450 pCO2 ___60.3__ -mmHg 35.0 45.0 pO2 ___84.4__ -mmHg 70.0 100 HCO3- ___29.1__ -mmol/L 22.0 26.0 ABE ____2.0__ -mmol/L -2.0 2.0 tHb ___12.4__ -g/dL 12.0 18.0 O2Hb ___93.3__ -% 95.0 COHb ____1.3__ -% 1.5 MetHb ____0.8__ -% 0.4 1.5 sO2 ___95.3__ -% FIO2 ___32.0__ -% Drawn By MM - Date/Time Notified____ 03:24:00 -_ Spontaneous_RR ___16.0__ -b/min Liter_Flow ____3.0__ -L/min Oxygen Device 1 __OXYMASK - Notified By MM - Notified Whom DR KUBISTY - B 750 -mmHg tO2 ___16.3__ -Vol% Bi test N/A -
--- NOTE | 2016-08-18 06:22 | NUR ---
Decreased mental status,dyspnea, Pt alert, moderately confused at the beginning of the shift, more confused overnight, talkative to self,unable to sleep until around 0100. Pt found difficulty wake up,around 0210, response with moaning sounds and slightly open eyes, labored breathing, cyanosis, SPO2 85 -96% on O2 2l per oximask, desat to 70s when she removed O2, coarse lung sounds,2+pitting edema on legs. Wt gain 3kg within 2 days. BP 133/71 HR 69, RR 24-25. Charge nurse Jorge Churchill informed, Dr. De La Fuente notified and came to see pt at bedside, Stat ABG,EKG,CXR ordered, result viewed by MD. Lasix 40mg ordered and administered, not candidate for BiPAP due to comfort care per MD. Mentally slightly improved this am, response questions with mumbling words. Continue monitoring.
[2016-08-18 06:34] LABS: INR 2.85 ratio
[2016-08-18 06:35] LABS: Mean Corpuscular Hemoglobin 27.6 pg (27.0-35.0); Mean Corpuscular Volume 85.8 fL (81-100)
[2016-08-18] MEDS: Pantoprazole 20 mg ER24 Tablet PO SCH (07:30)
[2016-08-18] MEDS: Insulin Human REGular 300 Unit/3 mL Inj SUBQ SCH ×4 (08:17→21:44)
--- NOTE | 2016-08-18 09:10 | DRSVH ---
PROCEDURE: X-RAY CHEST ONE VIEW, PORTABLE ([id number]) INDICATIONS: SOB TECHNIQUE: One view of the chest was acquired. COMPARISON: [facility], CR, XR CHEST 2VW, 08/15/2016, 10:40. [facility], CR, XR CHEST 1VW (PORTABLE), 08/13/2016, 17:40. FINDINGS: Surgical changes and devices: Post median sternotomy and valvular replacement. Stable positioning of dual chamber cardiac pacer. Lungs and pleura: Interstitium is prominent and mild edema suspected. Right pleural effusion is pres ent in bibasilar airspace opacities again noted. No pneumothorax. Mediastinum: Mediastinal contours appear normal. Heart size is enlarged. Bones and chest wall: No suspicious bony lesions. Overlying soft tissues appear unremarkable. IMPRESSION: 1. Prominent interstitium mild edema suspected. 2. Right pleural effusion bibasilar airspace opacities, right greater than left consistent with patch y pulmonary edema versus atelectasis or pneumonia. Dictated by: Amos MONTES Interpreted: Gabe Yarbrough MD on 08/18/2016 at 9:08 Transcribed by: CARROLL on 08/18/2016 at 9:09 Approved by: Gabe Yarbrough M.D. on 08/18/2016 at 10:38
--- NOTE | 2016-08-18 10:51 | NUR ---
Social Work: Continued d/c planning Data: Pt is on day 3 of hospitalization. EMR reviewed. WEB OPERATIONS MANAGER called [facility] and notified them that pt will likely discharge in 2 or more days. Assessment was set up for Tuesday at 4:00pm with Leslie, if this needs to be moved earlier, she states to call Sarah. WEB OPERATIONS MANAGER will continue to follow. Assessment: Pt from [facility]. Plan: Pt will d/c back to [facility] after assessment by facility on Tuesday at 4:00pm. WEB OPERATIONS MANAGER will continue to follow.
[2016-08-18] MEDS: Albuterol-Ipratropium 3 mL Inhalation Solution NEB SCH ×4 (11:26→20:22)
--- NOTE | 2016-08-18 12:59 | PCM.PALLBR ---
Palliative Care Recommendation 89-year-old female admitted with acute on chronic respiratory failure and acute RSV infection, in the setting of multiple chronic medical illnesses including LVH and diastolic heart failure, chronic renal failure, chronic atrial fibrillation, etc. She has consistently expressed a wish to family members over some time that she is tired of living and wants to pass away, though she would wish to do so in the setting of her usual care facility, with her . Summary of palliative recommendations: -Symptom management (Pain/other)- no evidence of significant distress or pain at this time. Continued medical management of her respiratory status and other medical problems per the medical team. Morphine IV prn discomfort or air hunger. Per our conversation today, hospice information visit with the patient's daughter/JENNIFER Sigala in the next 1-2 days. -DPOA/Advanced Directives/POLST-- POLST from September 2015 noted DO NOT RESUSCITATE /DO NOT INTUBATE/Comfort Care/no hospitalization. Dr. Barajas spoke with the patient yesterday and at that time she seemed to indicate that she would want to return to the hospital for occasional care, though this sounds contrary to her oft-stated wishes to family members that she wants to be allowed to pass away peacefully at home. Hospice information visit scheduled. Patient Goals: 1. Patient and family want to be told the truth about her illness, even if it is unpleasant. 2. Patient and family would like to be told prognosis when it can be predicted, to better guide treatment decisions. 3. Patient would choose quality of life over quantity of life, and defines quality as being with her and pets, and not having to return to the hospital for further care. Additional Medical Diagnoses with primary management by Hospitalist team include : Acute dyspnea and possible acute hypoxic respiratory failure, present on admission. improving # Acute RSV infection # Possible acute on chronic heart failure with preserve EF. # Possible acute asthma exacerbation # Acute kidney injury with CKD. poa. # Atrial fibrillation, chronic. Stable # Hyperbilirubinemia, chronic. Stable # History of valve replacement # Diabetes Mellitus Type 2. # Hyperlipidemia # Insomnia, chronic. stable # Hypertension # 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 Problems: End of Life Preferences DNR/DNI- inconsistent expression of other wishes for care. Ongoing discussions with the patient and her family as able. Hospice informational visit to be scheduled Goals of Care Patient has repeatedly expressed to family members that she wants to stay home and be comfortable Disposition To be determined Resuscitation Status Resuscitation Status: DNR/DNI:Do Not Resuscitate/Intubate (discussed and verified with patient) Limited Interventions: Medications and IV Fluid POLST Updates/Changes Previous POLST?: Yes POLST Last Review Date: Aug 18, 2016 POLST Review Outcome: No Change (awaiting further review with patient and family regarding which version of her POLST she prefers) . Advanced Care Planning Address: POLST, Comfort care Pain: None Symptom management: Drowsiness/sleepiness, Dyspnea, Delirium Total time 45 minutes; >50% face to face with patient and family, providing counselling regarding plans and recommendations, and in care coordination with her medical teams. Of the above total time, 20 minutes counseling for advanced care planning with the patient's family Palliative Brief Note Date of Service Aug 18, 2016 . Returned to reevaluate patient. Prior to visiting, reviewed her updated records in the EMR in detail, reviewed status with other palliative providers and with her bedside nurse. Also spoke at length with her daughter/JENINFER Sigala. Reviewed events of last evening with her and answered questions she had. Appears patient became increasingly confused after administration of lorazepam. Also possible increasing dyspnea/desaturation. Evaluated and treated appropriately by hospitalist team. Seems improved this morning, though she remains quite somnolent and confused when awakened. On exam, fatigued-appearing elderly woman lying in bed, confused when awakened. No coherent verbal interaction. Vital signs noted. Skin is warm and dry. Head and neck exam without acute focal findings. Lungs with dependent crackles and decreased breath sounds. Heart sounds regular. Abdomen soft and nontender. Minimal cooperation with neurologic exam. Lab and imaging studies reviewed in detail. Zakiya related that the patient has been expressing the wish to pass away for some time. She has told Zakiya repeatedly that she is tired and wants to be allowed to peacefully. Her greatest wishes that she would be able to be at her care facility with her and pets and not have to return to the hospital for further care, but on multiple occasions when she has deteriorated she has panicked and insisted on return. We discussed this at some length and the conversation moved on to discussing the benefits that hospice might provide. Ultimately, coronal was quite interested and requested a hospice informational visit which will be arranged in the next 1-2 days/as soon as possible. In the meantime, patient is to remain DO NOT RESUSCITATE/DO NOT INTUBATE and is not a candidate for CCU care, pressors, BiPAP or other aggressive interventions. Stefan Ruiz MD Aug 18, 2016 12:59
--- NOTE | 2016-08-18 14:23 | NUR ---
Palliative care note D/A: Discussed briefly with pt dtr Zakiya this am at [phone]. Zakiya is a teacher and can be available to be at pt bedside at 3:30. Dr. Ruiz kindly talks to dtr today who requests [facility] info visit. Have arranged with Jo Ann for 3:30 visit today. Msg left for sheryl Vo. Phone call to Zakiya to confirm her attendance. Dr. Ruiz aware. P : Palliative care to follow. Alma LOOMIS, CCM
--- NOTE | 2016-08-18 14:37 | PCM.PHAPRO ---
Progress Date of Service: Aug 18, 2016 ANTICOAGULATION MANAGEMENT BY PHARMACY -INDICATION: AFIB -HOME DOSE: 7.5mg on Mon and Fri, 5mg all of the other days of the week -CONCURRENT ANTICOAGULATION: NONE -CRCL: 25.6 ML/MIN -COAG TRENDS: -Aug 17-Aug 18-Aug 2.40 3.89 2.85 0.49 1.49 -1.04 5 MG HOLD 2.5 -[id number] SCORE: 6 PLAN: PATIENT IS BACK TO THERAPEUTIC RANGE AFTER HOLDING DOSE LAST NIGHT, WILL GIVE A OT DOSE TONIGHT OF 2.5 MG TO KEEP IN RANGE. Pharmacy appreciates consult and will continue to monitor. THANKS! Mariah Uribe PharmD Aug 18, 2016 14:37
--- NOTE | 2016-08-18 15:35 | PCM.PNMED ---
Subjective Date of Service Aug 18, 2016 Subjective denies any new issues/complaints. continued cough and generalized malaise per night report had episode of hypoxemia last night Exam Vital Signs Vital Sign - Last Date Time Temp Pulse Resp B/P Pulse Ox O2 Delivery O2 Flow Rate FiO2 08/18/16 14:44 68 18 91 OxyMask 2.00 08/18/16 14:16 36.5 131/63 Intake and Output 08/17/16 08/17/16 08/18/16 Cumulative From/Thru 15:00 23:00 07:00 08/15/16 01:13 - 08/18/16 06:35 Intake Total 1000 ml 100 ml 4958 ml Output Total 1400 ml 2650 ml Balance -400 ml 100 ml 2308 ml Intake Oral 1000 ml 100 ml 3836 ml IV Total 1122 ml Output Urine Total 1400 ml 2650 ml # Voids 3 1 9 # Bowel Movements 1 2 Exam General: Alert, Oriented X3, Cooperative, No Acute Distress Head: Normal Eyes: PERRLA, EOMI, Scleral Anicteric Nose: Mucous Membr Moist/[place] Mouth: Mucous Membr Moist/[place] Chest & Lungs: Chest Wall Normal, Coarse breath sounds (upper resp), Expiratory wheezes (bilat), Crackles (fine bibasilar) Cardiovascular: Regular Rate/Rhythm Abdomen: Non-tender, Non-distended, Normoactive bowel tones, Soft Extremities: Edema (2+ edema in LE bilat) Skin: Other (erythema of LE bilat.) Neurological: Grossly Neurologically Intact,Normal Speech IVs and Medications Medications Reviewed: Medications were reviewed in detail Lab and Diagnostics Result Diagram: 08/18/16 0600 08/18/16 0600 X-Rays, CTs and MRIs Date of Service: 08/15/16 1015 PROCEDURE: X-RAY CHEST, TWO VIEWS ([id number]) IMPRESSION: Improved bibasilar opacities since 08/13/16 Dictated by: Kenneth Aburto M.D. on 08/15/2016 at 11:17 Approved by: Kenneth Aburto M.D. on 08/15/2016 at 11:21 12-lead ECG V paced at 70 Assessment & Plan 89 year old female with a history of CHF on Lasix, DM, HTN, hyperlipidemia, and afib anticoagulated on warfarin brought to the ED by EMS with report of shortness of breath and generalized malaise. # Acute dyspnea and possible acute hypoxic respiratory failure, present on admission. improving - ? if combination of acute diastolic CHF and possible acute asthma exacerbation due to acute RSV infection - f/u I/O closely - Duo-Neb and Albuterol prn - c/w IV Solu-Medrol and consider changing to Prednisone soon # Acute RSV infection - care as noted above # Possible acute on chronic heart failure with preserve EF. - Echo less than one month ago showed hyperdynamic heart, EF >80% with concentric LV, pacer, bioprosthetic mitral valve, and dilated right heart - consider limited echo - further diuresis was on hold till today given worsening renal function and CXR without significant sign of edema - Resume home dose torsemide today and f/u closely # Possible acute asthma exacerbation - plan as noted above # Acute kidney injury with CKD. poa. improving while off of diuretics over past couple of days. - Pt has history of CKD, baseline Cr appears to be 1 - 1.05. - f/u closely as resume diuretics - avoid nephrotoxic meds # Atrial fibrillation, chronic. Stable - Continue metoprolol - Continue home warfarin (dose per pharmacy) - f/u daily INR # Hyperbilirubinemia, chronic. 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 - Continue warfarin - Continue to monitor INR # Diabetes Mellitus Type 2. - Hold metformin and Tradjenta for now - ISS # Hyperlipidemia - Simvastatin continued # Insomnia, chronic. stable # Hypertension - Stable # 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 # Goals of care - appreciate palliative care consult. will f/u w/ recs Dispo: 2-3 days pending improved respiratory status, goals of care GI Prophylaxis: Proton Pump Inhibitor VTE Prophylaxis: Theraputic Anticoag with Warfarin VTE Mechanical Devices: Intermittant Pneumatic CD Resuscitation Status: DNR/DNI:Do Not Resuscitate/Intubate (discussed and verified with patient) Limited Interventions: Medications and IV Fluid Ozzie Robles Aug 18, 2016 15:35
--- NOTE | 2016-08-18 17:41 | NUR ---
Mentation/Meds/Diet Pt continues to be confused this shift, resting with eyes closed most of the shift, muttering to herself. Will open eyes to verbal stimuli, and follow directions, but closes eyes immediately after staff member is finished instructing her, and drifting back off into sleepy state. RN felt it unsafe to administer PO medications today. MD made aware. Nurse swallow screen completed, and pt did not pass. Per policy, pt NPO until condition changes, and evaluated by speech therapy. Swallow eval ordered.
[2016-08-19] MEDS: MethylprednisoLONE Sodium Succinate 40 mg/mL Inj IVPUSH SCH ×3 (00:27→17:19)
--- NOTE | 2016-08-19 02:00 | NUR ---
Mentation/activity Pt indicated she was hungry. Primary RN performed swallow eval, pt passed. Pt was a/o x 3, answered questions appropriately with clear speech.Pt remains bedbound due to continued weakness. Bed low and locked, call light within reach.
[2016-08-19 05:26] VITALS: BP 135/79; PULSE 70; RESP 22; O2SAT 94
[2016-08-19 06:29] LABS: BASOPHILS % (AUTO) 0.1 % (0-3); EOSINOPHILS % (AUTO) 0 % (0-5); MONOCYTES % (AUTO) 4.2 % (4-12); Mean Corpuscular Hemoglobin 26.9 pg (27.0-35.0); Mean Corpuscular Volume 86.9 fL (81-100); NEUTROPHILS % (AUTO) 93.4 % (40-74); Platelet Count 210 bil/L (150-400)
[2016-08-19 06:47] LABS: INR 2.19 ratio
[2016-08-19] MEDS: Pantoprazole 20 mg ER24 Tablet PO SCH (07:53)
[2016-08-19] MEDS: Furosemide 10 mg/mL 4 mL Inj IVPUSH SCH (07:54)
[2016-08-19] MEDS: Insulin Human REGular 300 Unit/3 mL Inj SUBQ SCH ×4 (07:55→22:22)
--- NOTE | 2016-08-19 08:25 | PCM.PNMED ---
Subjective Date of Service Aug 19, 2016 Subjective Remains short of breath and has high oxygen requirement, but no acute complaints otherwise. Denies pain or discomfort. Feeling generally improved since admission. Exam Vital Signs Vital Sign - Last Date Time Temp Pulse Resp B/P Pulse Ox O2 Delivery O2 Flow Rate FiO2 08/19/16 05:26 36.8 70 22 135/79 94 OxyMask 3.00 Intake and Output 08/18/16 08/18/16 08/19/16 Cumulative From/Thru 15:00 23:00 07:00 08/15/16 01:13 - 08/19/16 05:31 Intake Total 0 ml 100 ml 5058 ml Output Total 2650 ml Balance 0 ml 100 ml 2408 ml Intake Oral 0 ml 100 ml 3936 ml IV Total 1122 ml Output Urine Total 2650 ml # Voids 5 2 16 # Bowel Movements 2 General: Alert, Cooperative, Other (She is oriented, but porviding tangential stories during exam, difficult to refocus on topic. ) Mouth: Mucous Membr Moist/[place] Chest & Lungs: Coarse breath sounds, Other (Difuse wheezing with inspiration/ expiration, diminished breath sounds in lung bases as well. ) Extremities: No cyanosis/clubbing/edma bilat IVs and Medications Medications Reviewed: Medications were reviewed in detail Lab and Diagnostics Result Diagram: 08/19/16 0535 08/19/1635 X-Rays, CTs and MRIs Date of Service: 08/15/16 1015 PROCEDURE: X-RAY CHEST, TWO VIEWS ([id number]) IMPRESSION: Improved bibasilar opacities since 08/13/16 Dictated by: Kenneth Aburto M.D. on 08/15/2016 at 11:17 Approved by: Kenneth Aburto M.D. on 08/15/2016 at 11:21 12-lead ECG V paced at 70 Assessment & Plan 89 year old female with a history of CHF on Lasix, DM, HTN, hyperlipidemia, and afib anticoagulated on warfarin brought to the ED by EMS with report of shortness of breath and generalized malaise. # Acute dyspnea and possible acute hypoxic respiratory failure, present on admission. improving - ? if combination of acute diastolic CHF and possible acute asthma exacerbation due to acute RSV infection - f/u I/O closely - Duo-Neb and Albuterol prn - c/w IV Solu-Medrol today with plan to transition to oral therapy in AM. - Weening O2 as tolerated. # Acute RSV infection - care as noted above # Possible acute on chronic heart failure with preserve EF. - Echo less than one month ago showed hyperdynamic heart, EF >80% with concentric LV, pacer, bioprosthetic mitral valve, and dilated right heart - Repeat echo ordered and pending for this morning. -Continuing with diuresis today, following daily weights, O2 requirements, and renal function to guide further dosing. - Resume home dose torsemide tomorrow. # Possible acute asthma exacerbation - plan as noted above # Acute kidney injury with CKD. poa. improving while off of diuretics over past couple of days. - Pt has history of CKD, baseline Cr appears to be 1 - 1.05. - f/u closely as resume diuretics - avoid nephrotoxic meds # Atrial fibrillation, chronic. Stable - Continue metoprolol - Continue home warfarin (dose per pharmacy) - f/u daily INR # Hyperbilirubinemia, chronic. 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 - Continue warfarin - Continue to monitor INR # Diabetes Mellitus Type 2. - Hold metformin and Tradjenta for now - ISS # Hyperlipidemia - Simvastatin continued # Insomnia, chronic. stable # Hypertension - Stable # 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 # Goals of care - appreciate palliative care consult. will f/u w/ recs Dispo: 2 days pending improved respiratory status, goals of care Pain Evaluation: Adequate Pain Control GI Prophylaxis: Proton Pump Inhibitor VTE Prophylaxis: Theraputic Anticoag with Warfarin VTE Mechanical Devices: Intermittant Pneumatic CD Resuscitation Status: DNR/DNI:Do Not Resuscitate/Intubate (discussed and verified with patient) Limited Interventions: Medications and IV Fluid Time spent 30 minutes Saturnino Sutton DO Aug 19, 2016 08:25
[2016-08-19] MEDS ORDERED: Furosemide 10 mg/mL 2 mL Inj IVPUSH SCH (08:30)
[2016-08-19] MEDS ORDERED: Furosemide 10 mg/mL 4 mL Inj IVPUSH SCH (08:30)
[2016-08-19 09:03] VITALS: PULSE 70; RESP 22; O2SAT 94
[2016-08-19] MEDS: Albuterol-Ipratropium 3 mL Inhalation Solution NEB SCH ×3 (09:03→16:51)
--- NOTE | 2016-08-19 11:43 | DRSVH ---
[facility] [address] [place] [address] Echocardiogram Report Name: FLEX GRANT MStudy Date: Height: 60 in Hospital Exam Location: [facility] Weight: 164 lb Gender: Female BSA: 1.7 m2 : 1925 Age: 89 yrs BP: 135/79 mm Hg Reason For Study: SOB, EDEMA Ordering Physician: HOSPITALIST [facility] Performed By: Surendra Pedroza Referring Physician: EDWIN VAZ Interpretation Summary The left ventricular cavity is small. A membranous ventricular septal defect is present. The ejection fraction is estimated to be 75-80%. Flattened septum is consistent with RV pressure/volume overload. The right ventricle is severely dilated. There is a pacemaker lead in the right ventricle. Right ventricular systolic function is severely reduced.Cuff measured systolic blood pressure of 135 mmHg minus VSD peak gradient of 55 mmHg yields a pulmonary artery pressure of 80 mmHg. There is severe mitral annular calcification. The prosthetic mitral valve is well-seated. The mitral valve mean gradient is 7 mmHg. There is mild mitral regurgitation. There is a bioprosthetic aortic valve. No aortic regurgitation is present. The gradients through the prosthetic aortic valve are within the normal range for this type of valve. There is severe tricuspid regurgitation. There is no other significant valvular heart disease. There is a moderate right-sided pleural effusion. Procedure: A limited 2D color echocardiogram was performed for SOB and edema on a patient who recently had a complete echocardiogram. The study quality was technically adequate. Comparison is made with the echocardiogram of 07/25/16. The patient has a paced rhythm. Left Ventricle: The left ventricular cavity is small. Left ventricular wall thickness is mildly increased. A membranous ventricular septal defect is present. The ventricular septal defect is moderate size. The ejection fraction is estimated to be 75-80%. Flattened septum is consistent with RV pressure/volume overload. Right Ventricle: The right ventricle is severely dilated. There is a pacemaker lead in the right ventricle. Right ventricular systolic function is severely reduced. Mitral Valve: There is severe mitral annular calcification. The prosthetic mitral valve is well-seated. The mitral valve mean gradient is 7 mmHg. There is mild mitral regurgitation. Aortic Valve: There is a bioprosthetic aortic valve. The gradients through the prosthetic aortic valve are within the normal range for this type of valve. No aortic regurgitation is present. Tricuspid Valve: The tricuspid annulus is dilated. There is severe tricuspid regurgitation. There is significant reversal in hepatic veins. Pulmonic Valve: The pulmonic valve leaflets are thin and pliable; valve motion is normal. There is mild pulmonic regurgitation. There is no other significant valvular heart disease. Great Vessels: The dimensions of the ascending aorta are normal. The IVC is dilated (diameter is greater than 2.1 cm) and it collapses less than 50% with a sniff. This suggests a high right atrial pressure of 15 mm Hg. Pericardium/ Pleura There is no pericardial effusion. There is a moderate right-sided pleural effusion. MMode/2D Measurements & Calculations IVC diam: 2.3 cm LVOT diam: 1.6 cm Doppler Measurements & Calculations Ao V2 max MVA(VTI) TR max mio MV V2 mean: 126.0 cm/sec : 222.0 cm/sec : 330.4 cm/sec MV mean P.4 mmHg Ao max PG : 0.43 2m TR max PG MV V2 VTI: 61.7 cm : 19.7 mmHg : 43.7 mmHg Ao mean PG PA V2 max : 13.0 mmHg : 67.2 cm/sec LVOT Max Mio PA mean PG : 78.6 cm/sec : 0.95 mmHg GIOVANNI(I,D): 0.85 cm sev ratio Ao V2 mean LV V1 max PG PA V2 mean GIOVANNI indexed to BSA : 175.9 cm/sec : 47.4 cm/sec (cm^2/m^2): 0.50 Ao V2 VTI: 31.0 cm LV V1 VTI GIOVANNI(V,D): 0.74 cm2 : 12.7 cm Reading Physician:CHRISTOPHE
[2016-08-19 12:43] VITALS: PULSE 70; RESP 20; O2SAT 92
--- NOTE | 2016-08-19 13:02 | PCM.PALLBR ---
Palliative Care Recommendation 89-year-old female admitted with acute on chronic respiratory failure and acute RSV infection, in the setting of multiple chronic medical illnesses including LVH and diastolic heart failure, severe right-sided heart failure, chronic renal failure, chronic atrial fibrillation, etc. She has consistently expressed the wish to family members over some time that she is tired of living and wants to pass away, though she would wish to do so in the setting of her usual care facility, with her and her beloved pet cats. Seen by hospice yesterday and the plan is for her to hopefully return to her care home facility, where she can be with her and her pets, with hospice to follow. Her daughter says that she wants to be the person that takes her mother back to the [facility] at time of discharge. Summary of palliative recommendations: -Symptom management (Pain/other)- no evidence of significant distress or pain at this time. Continued medical management of her respiratory status and other medical problems per the medical team. Morphine IV prn discomfort or air hunger. Discontinue her atorvastatin. Continue other medications for now that contribute to comfort. Recommend discontinuing warfarin at time of discharge. -DPOA/Advanced Directives/POLST-- completed new POLST today consistent with DO NOT RESUSCITATE/DO NOT INTUBATE/Comfort Care/antibiotics for comfort okay/no artificial nutrition. Hospice visit yesterday and plan developing to return to her care home facility with hospice to follow. Patient Goals: 1. Patient and family want to be told the truth about her illness, even if it is unpleasant. 2. Patient and family would like to be told prognosis when it can be predicted, to better guide treatment decisions. 3. Patient would choose quality of life over quantity of life, and defines quality as being with her and pets, and not having to return to the hospital for further care. Additional Medical Diagnoses with primary management by Hospitalist team include : Acute dyspnea and possible acute hypoxic respiratory failure, present on admission. improving # Acute RSV infection # Possible acute on chronic heart failure with preserve EF. # Possible acute asthma exacerbation # Acute kidney injury with CKD. poa. # Atrial fibrillation, chronic. Stable # Hyperbilirubinemia, chronic. Stable # History of valve replacement # Diabetes Mellitus Type 2. # Hyperlipidemia # Insomnia, chronic. stable # Hypertension # 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 Problems: End of Life Preferences DNR/DNI/engaging with hospice for care at home Goals of Care Patient has repeatedly expressed to family members that she wants to stay home and be comfortable Disposition Probable return to [facility] with hospice to follow Resuscitation Status Resuscitation Status: DNR/DNI:Do Not Resuscitate/Intubate (discussed and verified with patient and her daughter/POA) POLST Updates/Changes Previous POLST?: Yes POLST Last Review Date: Aug 18, 2016 Antibiotics: Determine Use or Limitations Artificially Admin Nutrition: No Artifical Nutrition by Tube POLST Discussed with: Health Care Agent ([facility]) POLST Review Outcome: New Form Completed (awaiting further review with patient and family regarding which version of her POLST she prefers) . Advanced Care Planning Address: POLST Pain: None Symptom management: Dyspnea Total time 60 minutes; >50% face to face with patient , providing counselling regarding plans and recommendations, and in care coordination with her medical teams. Over the above time, 20 minutes counseling for advanced care planning with the patient, initiating new POLST reflecting her updated wishes/plans copies to: Dianne Lofton PAC Palliative Brief Note Date of Service Aug 19, 2016 . Returned to reevaluate patient. Prior to visiting, reviewed her updated records in the EMR in detail and spoke with her bedside nurse. On my arrival, she was sleeping in bed, but was easily awakened. Much improved level of consciousness today- she answered all questions appropriately and even initiated portions of our conversation. Denied any dyspnea, chest pain, abdominal pain or nausea. Said that "I am tired of people asking me that" when I asked her if there was anything I could do for her. When I told her she might go home in the next several days she said that that made her feel very happy, because the most important thing to her was getting back with her and her cats Chantal and Patrica. On exam, somewhat frail elderly woman lying in bed. Vital signs noted. Skin warm and dry. Head and neck exam without acute focal findings. Lungs with a few crackles and diminished sounds dependent, no wheezes, heart sounds regular, abdomen benign. Upper extremities with diffuse puffiness and bruising; lower extremities without significant pitting edema. Neurologic exam not lateralized. Laboratories and imaging studies reviewed. Echocardiogram report reviewed- severe RV dilation noted. Patient and her daughter met with hospice yesterday and she has apparently signed on. Is being evaluated for return to her care center so that she can be with her and her pets with hospice to follow there. I also talked at length with her daughter/JENNIFER Wall. Completed a new POLST with her assistance reflecting the changes in plans Stefan Ruiz MD Aug 19, 2016 13:01
--- NOTE | 2016-08-19 13:05 | PCM.PHAPRO ---
Progress Date of Service: Aug 19, 2016 ANTICOAGULATION MANAGEMENT BY PHARMACY -INDICATION: AFIB -HOME DOSE: 7.5mg on Mon and Fri, 5mg all of the other days of the week -CONCURRENT ANTICOAGULATION: NONE -CRCL: 25.6 ML/MIN -COAG TRENDS: -Aug 17-Aug 18-Aug 19-Aug 2.40 3.89 2.85 2.19 0.49 1.49 -1.04 -0.66 5 MG HOLD 2.5 ~ -[id number] SCORE: 6 PLAN: PATIENT IS BACK TO THERAPEUTIC RANGE AFTER HOLDING DOSE LAST NIGHT, WILL GIVE A OT DOSE TONIGHT OF 3 MG TO KEEP IN RANGE. Pharmacy appreciates consult and will continue to monitor. THANKS! Mariah Uribe PharmD Aug 19, 2016 13:05
--- NOTE | 2016-08-19 14:59 | NUR ---
Evaluation completed. Please go to "Notes" then click on "Assessments and Notes" (bottom left corner of screen). Then select appropriate discipline tab on top of screen.
[2016-08-19 15:37] VITALS: BP 150/75; PULSE 72; RESP 22; O2SAT 95
[2016-08-19 16:52] VITALS: PULSE 66; RESP 20; O2SAT 96
--- NOTE | 2016-08-19 18:16 | NUR ---
Respiration/mentation Patient has has had intermittent episodes of confusion where she forgets where she is but has been cooperative with care. Patient frequently removes oxymask and de-sats into high 70s very quickly. Pt was able to use standing scale with 2PA on 3L oxymask and dropped from 95-90% with ambulation. Pt has maintained an Sp02 of 90-95% on 3L oxymask when compliant.
[2016-08-19 20:38] VITALS: BP 132/75; PULSE 70; RESP 22; O2SAT 95
[2016-08-20 06:12] LABS: BASOPHILS % (AUTO) 0 % (0-3); EOSINOPHILS % (AUTO) 0 % (0-5); MONOCYTES % (AUTO) 8.9 % (4-12); NEUTROPHILS % (AUTO) 88.6 % (40-74); Platelet Count 187 bil/L (150-400)
[2016-08-20 06:33] LABS: INR 2.15 ratio
[2016-08-20 07:05] VITALS: BP 131/73; PULSE 70; RESP 22; O2SAT 97
[2016-08-20] MEDS: Pantoprazole 20 mg ER24 Tablet PO SCH (07:47)
[2016-08-20] MEDS: Insulin Human REGular 300 Unit/3 mL Inj SUBQ SCH ×4 (08:13→21:39)
[2016-08-20] MEDS: guaiFENesin 600 mg ER12 Tablet PO PRN (08:14)
[2016-08-20] MEDS: predniSONE 20 mg Tablet PO SCH (08:14)
--- NOTE | 2016-08-20 12:40 | PCM.PHAPRO ---
Progress Date of Service: Aug 20, 2016 ANTICOAGULATION MANAGEMENT BY PHARMACY -INDICATION: AFIB -HOME DOSE: 7.5mg on Mon and Fri, 5mg all of the other days of the week -CONCURRENT ANTICOAGULATION: NONE -CRCL: 25.6 ML/MIN -COAG TRENDS: -Aug 18-Aug 19-Aug 20-Aug 3.89 2.85 2.19 2.15 1.49 -1.04 -0.66 -0.04 HOLD 2.5 3 MG 3 MG -[id number] SCORE: 6 PLAN: PATIENT IS STILL IN THERAPEUTIC RANGE, WILL GIVE A OT DOSE TONIGHT OF 3 MG TO KEEP IN RANGE. Pharmacy appreciates consult and will continue to monitor. THANKS! Mariah Uribe PharmD Aug 20, 2016 12:40
--- NOTE | 2016-08-20 14:00 | PCM.PALLBR ---
Palliative Care Recommendation 89-year-old female admitted with acute on chronic respiratory failure and acute RSV infection, in the setting of multiple chronic medical illnesses including LVH and diastolic heart failure, severe right-sided heart failure, chronic renal failure, chronic atrial fibrillation, etc. She has consistently expressed the wish to family members over some time that she is tired of living and wants to pass away, though she would wish to do so in the setting of her usual care facility, with her and her beloved pet cats. Seen by hospice and the plan is for [facility], where she can be with her and her pets, with hospice to follow. Her daughter says that she wants to be the person that takes her mother back to the [facility] at time of discharge. Summary of palliative recommendations: -Symptom management (Pain/other)- no evidence of significant distress or pain at this time. Continued medical management of her respiratory status and other medical problems per the medical team. Morphine IV prn discomfort or air hunger. Discontinue her atorvastatin. Continue other medications for now that contribute to comfort. Recommend discontinuing warfarin at time of discharge. -DPOA/Advanced Directives/POLST-- completed new POLST today consistent with DO NOT RESUSCITATE/DO NOT INTUBATE/Comfort Care/antibiotics for comfort okay/no artificial nutrition. Hospice visit on 08/18 and plan developing to return to [facility] facility with hospice to follow. Patient Goals: 1. Patient and family want to be told the truth about her illness, even if it is unpleasant. 2. Patient and family would like to be told prognosis when it can be predicted, to better guide treatment decisions. 3. Patient would choose quality of life over quantity of life, and defines quality as being with her and pets, and not having to return to the hospital for further care. Additional Medical Diagnoses with primary management by Hospitalist team include : Acute dyspnea and possible acute hypoxic respiratory failure, present on admission. improving # Acute RSV infection # Possible acute on chronic heart failure with preserve EF. # Possible acute asthma exacerbation # Acute kidney injury with CKD. poa. # Atrial fibrillation, chronic. Stable # Hyperbilirubinemia, chronic. Stable # History of valve replacement # Diabetes Mellitus Type 2. # Hyperlipidemia # Insomnia, chronic. stable # Hypertension # 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 Problems: End of Life Preferences DNR/DNI/engaging with hosp[facility] Goals of Care Patient has repeatedly expressed to family members that she wants to stay home and be comfortable Disposition Probable return to [facility] with hospice to follow Resuscitation Status Resuscitation Status: DNR/DNI:Do Not Resuscitate/Intubate (discussed and verified with patient and her daughter/POA) POLST Updates/Changes Previous POLST?: Yes POLST Last Review Date: Aug 18, 2016 Antibiotics: Determine Use or Limitations Artificially Admin Nutrition: No Artifical Nutrition by Tube POLST Discussed with: Health Care Agent ([facility]PO[facility]) POLST Review Outcome: New Form Completed (awaiting further review with patient and family regarding which version of her POLST she prefers) . Advanced Care Planning Address: Comfort care Pain: None Total time 25 minutes; >50% face to face with patient and family, providing counselling regarding plans and recommendations, and in care coordination with her medical teams. copies to: Dianne Lofton Palliative Brief Note Date of Service Aug 20, 2016 . Returned to reevaluate patient. Prior to visiting, reviewed her updated records in the EMR in detail. Spoke with her bedside nurse. On my arrival today, she is resting in bed with eyes closed but awakens easily. Thereafter answers simple questions without difficulty. Denied shortness of breath, chest or abdominal discomfort, nausea, etc. Continues to say that the most important thing to her is to get back home so she can be with her and her cats. On exam, elderly woman lying in bed in no distress. Nasal cannula oxygen. Vital signs noted. Skin is warm and dry. Lungs with a few dependent crackles, heart sounds regular, abdomen soft and benign. Extremities without pitting edema. Stefan Ruiz MD Aug 20, 2016 14:00
[2016-08-20 14:43] VITALS: BP 158/84; PULSE 70; RESP 20; O2SAT 95
--- NOTE | 2016-08-20 15:22 | NUR ---
Social Work: Continued d/c planning Data: Pt is on day 5 of hospitalization. EMR reviewed. Pt discussed in rounds. states pt medically ready for d/c today. CUSTOMER CARE MANAGER called [facility] in the AM and spoke with ORSA Nelson, requesting their bedside assessment to be earlier in the day, but they state the earliest they can is 3:30pm. Leslie states the earliest that she can take pt is Tuesday as they cannot do weekend admissions. CUSTOMER CARE MANAGER requested Leslie look into a discharge late in the day today, she states that she spoke with their provider engagement executive and this is not an option. CUSTOMER CARE MANAGER spoke with [facility] who states that they can open with pt on Tuesday with the potential to open on Tuesday. She states that they no longer have Tuesday available. She states that they need to know what DME she needs before the end of the day. CUSTOMER CARE MANAGER called pt's daughter to update her and inquire about what medical equipment they need from hospice, no answer. CUSTOMER CARE MANAGER left a message with pt's daughter on both cell phone and land line. CUSTOMER CARE MANAGER spoke with ROSA Nelson with [facility] who states pt will require a hospital bed at least but did not know other needs for certain. CUSTOMER CARE MANAGER spoke with [facility] and they will deliver hospital bed, wheel chair, O2, and bedside commode. CUSTOMER CARE MANAGER updated ERIC RN of delayed d/c. Assessment: Pt to open with hospice. Plan: Pt will d/c to [facility] on Tuesday with [facility] to open on Tuesday afternoon. Pt will need to d/c by noon on Tuesday. CUSTOMER CARE MANAGER will continue to follow. TERESA Purdy
--- NOTE | 2016-08-20 16:02 | PCM.PNMED ---
Subjective Date of Service Aug 20, 2016 Subjective Patient again notes a steady improvement in respiratory function, is not certain she is back to baseline but notes respiratory effort has improved day by day. She has no other acute complaints at this time, respiratory distress causing air hunger has however resolved. Denies fever chills. No other acute complaints at this time. Exam Vital Signs Vital Sign - Last Date Time Temp Pulse Resp B/P Pulse Ox O2 Delivery O2 Flow Rate FiO2 08/20/16 14:43 36.4 70 20 158/84 95 Nasal Cannula 3.00 Intake and Output 08/19/16 08/19/16 08/20/16 Cumulative From/Thru 15:00 23:00 07:00 08/15/16 01:13 - 08/19/16 21:30 Intake Total 954 ml 6012 ml Output Total 550 ml 3200 ml Balance 404 ml 2812 ml Intake Oral 954 ml 4890 ml IV Total 1122 ml Output Urine Total 550 ml 3200 ml # Voids 4 20 # Bowel Movements 2 General: Alert, Oriented X3, Cooperative, Mild Distress Eyes: EOMI Mouth: Mucous Membr Moist/[place] Chest & Lungs: Coarse breath sounds (Difusely. ), Expiratory wheezes Cardiovascular: Regular Rate/Rhythm Extremities: No cyanosis/clubbing/edma bilat Neurological: Grossly Neurologically Intact IVs and Medications Medications Reviewed: Medications were reviewed in detail Lab and Diagnostics Result Diagram: 08/20/16 0510 08/20/16 0510 X-Rays, CTs and MRIs Date of Service: 08/15/16 1015 PROCEDURE: X-RAY CHEST, TWO VIEWS ([id number]) IMPRESSION: Improved bibasilar opacities since 08/13/16 Dictated by: Kenneth Aburto M.D. on 08/15/2016 at 11:17 Approved by: Kenneth Aburto M.D. on 08/15/2016 at 11:21 12-lead ECG V paced at 70 Assessment & Plan 89 year old female with a history of CHF on Lasix, DM, HTN, hyperlipidemia, and afib anticoagulated on warfarin brought to the ED by EMS with report of shortness of breath and generalized malaise. # Acute dyspnea and possible acute hypoxic respiratory failure, present on admission. improving - ? if combination of acute diastolic CHF and possible acute asthma exacerbation due to acute RSV infection - f/u I/O closely - Duo-Neb and Albuterol prn continued. - c/w IV Solu-Medrol on admission, now transitioned to oral therapy (Prednisone) - Weening O2 as tolerated, home O2 of 2-3L is goal. . # Acute RSV infection - care as noted above # Possible acute on chronic heart failure with preserve EF. - Echo less than one month ago showed hyperdynamic heart, EF >80% with concentric LV, pacer, bioprosthetic mitral valve, and dilated right heart - Echo on admission continued to suppoer heart failure iwth elevated right sided pressures. -Continuing with diuresis today, following daily weights, O2 requirements, and renal function to guide further dosing. - Resuming attenuated dose torsemide now, 10mg down from home dose of 20mg, due to progressive decline in renal function with diuresis. # Possible acute asthma exacerbation - plan as noted above # Acute kidney injury with CKD. poa. improving while off of diuretics over past couple of days. - Pt has history of CKD, baseline Cr appears to be 1 - 1.05. - f/u closely as resume diuretics - avoid nephrotoxic meds # Atrial fibrillation, chronic. Stable - Continue metoprolol - Continue home warfarin (dose per pharmacy) - f/u daily INR # Hyperbilirubinemia, chronic. 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 - Continue warfarin - Continue to monitor INR # Diabetes Mellitus Type 2. - Hold metformin and Tradjenta for now - ISS # Hyperlipidemia - Simvastatin continued # Insomnia, chronic. stable # Hypertension - Stable # 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 # Goals of care - appreciate palliative care consult. will f/u w/ recs Dispo: 1-2 days pending improved respiratory status, goals of care Pain Evaluation: Adequate Pain Control GI Prophylaxis: Proton Pump Inhibitor VTE Prophylaxis: Theraputic Anticoag with Warfarin VTE Mechanical Devices: Intermittant Pneumatic CD Resuscitation Status: DNR/DNI:Do Not Resuscitate/Intubate (discussed and verified with patient and her daughter/POA) Time spent 35 minutes Saturnino Sutton DO Aug 20, 2016 16:02
--- NOTE | 2016-08-20 18:20 | NUR ---
Mentation Pt confused most of the day, asking "where am I?' Easily reoriented, been in bed all day, q2 turns, was able to feed self. Pt currently resting in bed with call light within reach, bed low and locked, intentional rounding.
[2016-08-20 20:04] VITALS: BP 154/78; PULSE 70; RESP 16; O2SAT 93
[2016-08-20 20:30] VITALS: BP 125/75; PULSE 70; RESP 22; O2SAT 93
[2016-08-20 23:31] VITALS: BP 142/83; PULSE 66; RESP 22; O2SAT 94
[2016-08-21 04:08] VITALS: BP 154/89; PULSE 70; RESP 22; O2SAT 94
[2016-08-21] MEDS: Insulin Human REGular 300 Unit/3 mL Inj SUBQ SCH ×4 (08:03→22:00)
[2016-08-21] MEDS: Pantoprazole 20 mg ER24 Tablet PO SCH (08:04)
[2016-08-21] MEDS: predniSONE 20 mg Tablet PO SCH (08:04)
[2016-08-21] MEDS: guaiFENesin 600 mg ER12 Tablet PO PRN (08:06)
--- NOTE | 2016-08-21 08:34 | PCM.PNMED ---
Subjective Date of Service Aug 21, 2016 Subjective Patient is feeling at least in stable condition this morning, still note some increased respiratory effort but this is essentially her baseline. No other acute complaints she had some difficulty sleeping overnight and is tired this morning. Otherwise feeling improved certainly from time of admission. Exam Vital Signs Vital Sign - Last Date Time Temp Pulse Resp B/P Pulse Ox O2 Delivery O2 Flow Rate FiO2 08/21/16 04:08 36.4 70 22 154/89 94 Nasal Cannula 3.00 Intake and Output 08/20/16 08/20/16 08/21/16 Cumulative From/Thru 15:00 23:00 07:00 08/15/16 01:13 - 08/20/16 20:10 Intake Total 390 ml 700 ml 7102 ml Output Total 3200 ml Balance 390 ml 700 ml 3902 ml Intake Oral 390 ml 700 ml 5980 ml IV Total 1122 ml Output Urine Total 3200 ml # Voids 3 3 26 # Bowel Movements 2 Exam General: Alert, Cooperative, She is oriented, improved mentation from previous 2 day evaluation Mouth: Mucous Membranes Moist/[place] Chest & Lungs: Coarse breath sounds,Difuse wheezing with inspiration/expiration , diminished breath sounds in lung bases as well. Extremities: No cyanosis/clubbing/edema bilat IVs and Medications Medications Reviewed: Medications were reviewed in detail Lab and Diagnostics Result Diagram: 08/20/16 0510 08/20/16 0510 X-Rays, CTs and MRIs Date of Service: 08/15/16 1015 PROCEDURE: X-RAY CHEST, TWO VIEWS ([id number]) IMPRESSION: Improved bibasilar opacities since 08/13/16 Dictated by: Kenneth Aburto M.D. on 08/15/2016 at 11:17 Approved by: Kenneth Aburto M.D. on 08/15/2016 at 11:21 12-lead ECG V paced at 70 Assessment & Plan 89 year old female with a history of CHF on Lasix, DM, HTN, hyperlipidemia, and afib anticoagulated on warfarin brought to the ED by EMS with report of shortness of breath and generalized malaise. # Acute dyspnea and possible acute hypoxic respiratory failure, present on admission. improving - ? if combination of acute diastolic CHF and possible acute asthma exacerbation due to acute RSV infection - f/u I/O closely - Duo-Neb and Albuterol prn continued. - c/w IV Solu-Medrol on admission, now transitioned to oral therapy (Prednisone) - Weening O2 as tolerated, home O2 of 2-3L is goal. . # Acute RSV infection - care as noted above # Possible acute on chronic heart failure with preserve EF. - Echo less than one month ago showed hyperdynamic heart, EF >80% with concentric LV, pacer, bioprosthetic mitral valve, and dilated right heart - Echo on admission continued to support heart failure with elevated right sided pressures. -Continuing with diuresis today, following daily weights, O2 requirements, and renal function to guide further dosing. - Resuming attenuated dose torsemide now, 10mg down from home dose of 20mg, due to progressive decline in renal function with diuresis. Should be alternating at this dose is stable respiratory status. # Possible acute asthma exacerbation - plan as noted above # Acute kidney injury with CKD. poa. improving while off of diuretics over past couple of days. - Pt has history of CKD, baseline Cr appears to be 1 - 1.05. - f/u closely as resume diuretics - avoid nephrotoxic meds # Atrial fibrillation, chronic. Stable - Continue metoprolol - Continue home warfarin (dose per pharmacy) - f/u daily INR # Hyperbilirubinemia, chronic. 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 - Continue warfarin - Continue to monitor INR # Diabetes Mellitus Type 2. - Hold metformin and Tradjenta for now - ISS # Hyperlipidemia - Statins discontinued due to patient's transitioned to comfort care, see palliative care's consultation notes for further details. There continued consistent this case is much appreciated. # Insomnia, chronic. stable # Hypertension - Stable # 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 # Goals of care - appreciate palliative care consult. - Comfort is patient's main concern at this time given end-stage heart and lung disease. , Dispo: 1-2 days pending improved respiratory status, goals of care Pain Evaluation: Adequate Pain Control GI Prophylaxis: Proton Pump Inhibitor VTE Prophylaxis: Theraputic Anticoag with Warfarin VTE Mechanical Devices: Intermittant Pneumatic CD Resuscitation Status: DNR/DNI:Do Not Resuscitate/Intubate (discussed and verified with patient and her daughter/POA) Time spent 20 minutes Saturnino Sutton DO Aug 21, 2016 08:34
[2016-08-21 11:37] LABS: INR 2.17 ratio
[2016-08-21 12:21] VITALS: BP 154/78; PULSE 70; RESP 20; O2SAT 92
--- NOTE | 2016-08-21 13:51 | NUR ---
Social Work: Readiness for d/c Data: Pt is on day 6 of hospitalization. EMR reviewed. MAIL TELLER spoke with ROSA Nelson with [facility] on 08/20/16 around 4pm. She states that they cannot take pt back to [facility] if she continues to be incontinent of bladder and bowels. MAIL TELLER asked if they have a higher level of assistance that could be provided at the [facility] and she states that they typically do not provide this service. Leslie states that they will look over her clinical notes on Tuesday morning and decide if they can take her or not. MAIL TELLER spoke today with pt's daughter, Zakiya, and informed her of the above information. MAIL TELLER states a back up plan needs to be made if they cannot take her back. MAIL TELLER suggested either private pay caregivers, family to provide for this need, or to consider a different assisted living facility. MAIL TELLER left [employer] book in pt's room for pt's daughter. Pt's daughter states she will call [facility] to see if they can provide this service for her mother, she states she will also call [employer] [facility] [place] to see what their pricing is. She states she is willing to provide for this need for her mother, but she is not available during the day as she is a teacher. MAIL TELLER will continue to follow. Assessment: Pt who will open with hospice. Plan: Pt will d/c back to [facility] on Tuesday with hospice to open that afternoon, possibly with private pay caregivers or pt's family to care for her incontinence of bladder and bowel if facility maintains that they cannot assist pt with these needs. MAIL TELLER will continue to follow. TERESA Purdy
[2016-08-21 13:52] VITALS: PULSE 70; RESP 20; O2SAT 92
[2016-08-21] MEDS: Albuterol 2.5 mg/3 mL Inhalation Solution NEB PRN (13:52)
--- NOTE | 2016-08-21 18:04 | NUR ---
Supplemental O2 At start of shift, Pt was on 3L via Oxi-Mask, satting mid-90s, with increased confusion compared to previous days. Made incremental efforts to wean/reduce supplemental O2 due to history of COPD, which patient tolerated well. However, at 1.5L via NC, Pt fell asleep and sat dropped to low 80s. Replaced NC with Oxi-Mask, and adjusted O2 back up to 3L. O2 sat returned to low 90s in less than one minute. At present, Pt on Oxi-Mask with 3L, satting 94%. Continue to monitor O2 sat and LOC. Pt otherwise very pleasant.
[2016-08-21 20:11] VITALS: BP 154/74; PULSE 69; RESP 16; O2SAT 94
[2016-08-22 05:42] LABS: INR 1.8 ratio
--- NOTE | 2016-08-22 06:13 | NUR ---
Mentation/Pain Patient has been very restless, "stating that she wanted to ". Patient wanted to leave, then she wanted to hide. Patient continued to pull of oxygen and become SOB. Patient appeared to be in pain, morphine given and patient was more comfortable and was able to rest for a while.
[2016-08-22 06:39] VITALS: BP 146/75; PULSE 70; RESP 20; O2SAT 93
--- NOTE | 2016-08-22 08:31 | PCM.PHAPRO ---
Progress Date of Service: Aug 22, 2016 Requesting Provider: Evelio Mendez MD A Fib inr goal 2-3 will increase warfarin to 4mg today [facility] Aug 22, 2016 08:31
[2016-08-22] MEDS: Insulin Human REGular 300 Unit/3 mL Inj SUBQ SCH ×4 (09:01→22:40)
[2016-08-22] MEDS: predniSONE 20 mg Tablet PO SCH (09:01)
[2016-08-22] MEDS: Pantoprazole 20 mg ER24 Tablet PO SCH (09:01)
[2016-08-22] MEDS: guaiFENesin 600 mg ER12 Tablet PO PRN (09:01)
--- NOTE | 2016-08-22 09:30 | NUR ---
KATHLEEN signed TERESA Purdy
--- NOTE | 2016-08-22 13:54 | PCM.PNMED ---
Subjective Date of Service Aug 22, 2016 Subjective She has no acute complaints morning. She notes being a little tired and reported taking a nap. Breathing function is stable she notes no changes overnight. Exam Vital Signs Vital Sign - Last Date Time Temp Pulse Resp B/P Pulse Ox O2 Delivery O2 Flow Rate FiO2 08/22/16 08:30 Supplement Oxygen 08/22/16 06:39 36.5 70 20 146/75 93 3.00 Intake and Output 08/21/16 08/21/16 08/22/16 Cumulative From/Thru 15:00 23:00 07:00 08/15/16 01:13 - 08/22/16 06:52 Intake Total 500 ml 872 ml 0 ml 8474 ml Output Total 3200 ml Balance 500 ml 872 ml 0 ml 5274 ml Intake Oral 500 ml 872 ml 0 ml 7352 ml IV Total 1122 ml Output Urine Total 3200 ml # Voids 3 4 3 36 # Bowel Movements 0 2 Exam General: Alert, Cooperative, She is oriented, stable mentation, baseline dementia. Mouth: Mucous Membranes Moist/[place] Chest & Lungs: Coarse breath sounds,Difuse wheezing with inspiration/expiration , diminished breath sounds in lung bases as well. Heart: Regular rate Extremities: No cyanosis/clubbing/edema bilat IVs and Medications Medications Reviewed: Medications were reviewed in detail Lab and Diagnostics Result Diagram: 08/20/16 0510 08/22/16 0510 X-Rays, CTs and MRIs Date of Service: 08/15/16 1015 PROCEDURE: X-RAY CHEST, TWO VIEWS ([id number]) IMPRESSION: Improved bibasilar opacities since 08/13/16 Dictated by: Kenneth Aburto M.D. on 08/15/2016 at 11:17 Approved by: Kenneth Aburto M.D. on 08/15/2016 at 11:21 12-lead ECG V paced at 70 Assessment & Plan 89 year old female with a history of CHF on Lasix, DM, HTN, hyperlipidemia, and afib anticoagulated on warfarin brought to the ED by EMS with report of shortness of breath and generalized malaise. # Acute dyspnea and possible acute hypoxic respiratory failure, present on admission. improving - ? if combination of acute diastolic CHF and possible acute asthma exacerbation due to acute RSV infection - Duo-Neb and Albuterol prn continued. - c/w IV Solu-Medrol on admission, now transitioned to oral therapy (Prednisone) - Weening O2 as tolerated, home O2 of 2-3L is goal. - Though patient was admitted with an acute exacerbation she appears back to her baseline, which is significantly impaired. . # Acute RSV infection - care as noted above # Possible acute on chronic heart failure with preserve EF. - Echo less than one month ago showed hyperdynamic heart, EF >80% with concentric LV, pacer, bioprosthetic mitral valve, and dilated right heart - Echo on admission continued to support heart failure with elevated right sided pressures. -Continuing with diuresis today, following daily weights, O2 requirements, and renal function to guide further dosing. - Resuming attenuated dose torsemide now, 10mg down from home dose of 20mg, due to progressive decline in renal function with diuresis. Should be alternating at this dose is stable respiratory status. - Follow-up renal function tests ordered for tomorrow # Possible acute asthma exacerbation - plan as noted above # Acute kidney injury with CKD. poa. improving while off of diuretics over past couple of days. - Pt has history of CKD, baseline Cr appears to be 1 - 1.05. - f/u closely as resume diuretics - avoid nephrotoxic meds - As noted above follow-up renal function tests are ordered for tomorrow # Atrial fibrillation, chronic. Stable - Continue metoprolol - Continue home warfarin (dose per pharmacy) - f/u daily INR # Hyperbilirubinemia, chronic. 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 - Continue warfarin - Continue to monitor INR # Diabetes Mellitus Type 2. - Hold metformin and Tradjenta for now - ISS # Hyperlipidemia - Statins discontinued due to patient's transitioned to comfort care, see palliative care's consultation notes for further details. There continued consistent this case is much appreciated. # Insomnia, chronic. stable # Hypertension - Stable # 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 # Goals of care - appreciate palliative care consult. - Comfort is patient's main concern at this time given end-stage heart and lung disease. , Dispo: Patient will be discharged on hospice care, pending placement which as of yet has not been found. Pain Evaluation: Adequate Pain Control GI Prophylaxis: Proton Pump Inhibitor VTE Prophylaxis: Theraputic Anticoag with Warfarin VTE Mechanical Devices: Intermittant Pneumatic CD Resuscitation Status: DNR/DNI:Do Not Resuscitate/Intubate (discussed and verified with patient and her daughter/POA) Time spent 25 minutes Saturnino Sutton DO Aug 22, 2016 13:53
[2016-08-22 14:07] VITALS: BP 153/85; PULSE 70; RESP 22; O2SAT 95
--- NOTE | 2016-08-22 14:30 | NUR ---
Social Work: Continued d/c planning Data: Pt is on day 7 of hospitalization. EMR reviewed. Pt is medically ready for d/c. [facility] requests updated clinicals Tuesday morning and states they are unsure if they can accept pt back to their facility due to her incontinence of bladder and bowels. Alise Osorio assessed pt and her spouse on 08/21/16. Pt daughter states she plans to take both of her parents home if [facility] cannot take her back, [employer] will follow up with pt regarding her preference. Hospice has been updated of situation. Equipment has been delivered to [facility] already. They plan to open on Tuesday afternoon. If [facility] refuses to take pt back, equipment can be transferred back to pt's daughters home. [employer] will keep hospice and pt's daughter informed of [facility] decision on 08/23/16. Pt's daughters cell phone is [phone]. Assessment: Pt from [facility]. Plan: Pt will either d/c tomorrow with hospice to open between 2-3pm on 08/23 to either [facility] or to pt's daughter's home. [employer] will keep hospice and pt's daughter informed of [facility] decision on 08/23/16. Pt's daughters cell phone is [phone]. TERESA Purdy Addendum: 08/22/16 at 1629 by MICHAEL MANCINI SS [employer] spoke with pt who states she is agreeable to going back to [facility] if they can take her with the back up plan of going to her daughter's home if she cannot go back with her spouse. Michael Mancini MSW
[2016-08-22 17:43] VITALS: PULSE 78; RESP 20; O2SAT 95
[2016-08-22 20:14] VITALS: BP 151/76; PULSE 69; RESP 20; O2SAT 95
--- NOTE | 2016-08-23 04:11 | NUR ---
NOC shift note Patient appeared comfortable overnight. Occasional moaning, but did not appear to be in distress and heart rate remained in the 70's, respirations about 20/min. Patient has denied pain when asked. Patient on 2L nasal cannula, saturations mid-high 90's, but would desat to 80's when she took cannula off, one time overnight. Patient is drowsy, but will open eyes and mumble answers during conversation. Patient's feet are very cold, but pedal pulses are palpable. Incontinent of urine, brief changed. Positional turning as tolerated. Intentional rounding in place.
[2016-08-23 06:06] VITALS: BP 124/75; PULSE 70; RESP 28; O2SAT 99
[2016-08-23 08:24] LABS: BASOPHILS % (AUTO) 0.3 % (0-3); EOSINOPHILS % (AUTO) 0.4 % (0-5); MONOCYTES % (AUTO) 13.8 % (4-12); Mean Corpuscular Hemoglobin 27.4 pg (27.0-35.0); NEUTROPHILS % (AUTO) 80.7 % (40-74); Platelet Count 262 bil/L (150-400)
[2016-08-23] MEDS: predniSONE 20 mg Tablet PO SCH (08:30)
[2016-08-23 08:42] LABS: INR 1.05 ratio
[2016-08-23] MEDS: Insulin Human REGular 300 Unit/3 mL Inj SUBQ SCH (08:46)
[2016-08-23 08:49] LABS: Magnesium 2.3 mg/dL (1.6-2.6); Phosphorus 3.2 mg/dL (2.5-4.9)
[2016-08-23] MEDS: Pantoprazole 20 mg ER24 Tablet PO SCH (08:52)
[2016-08-23] MEDS ORDERED: Furosemide 10 mg/mL 2 mL Inj IVPUSH ONE (09:00)
--- NOTE | 2016-08-23 09:04 | PCM.PALLBR ---
Palliative Care Recommendation 89-year-old female admitted with acute on chronic respiratory failure and acute RSV infection, in the setting of multiple chronic medical illnesses including LVH and diastolic heart failure, severe right-sided heart failure, chronic renal failure, chronic atrial fibrillation, etc. She has consistently expressed the wish to family members over some time that she is tired of living and wants to pass away, though she would wish to do so in the setting of her usual care facility, with her and her beloved pet cats. Seen by hospice and the plan is for her to return to her fdc facility versus SNF- though she would prefer the former so that she can be with her and her pets. Her daughter says that she wants to be the person that takes her mother back to the [facility] [place], operated by [facility] at time of discharge if possible. Summary of palliative recommendations: -Symptom management (Pain/other)- no evidence of significant distress or pain at this time. Continued medical management of her respiratory status and other medical problems per the medical team. Morphine IV prn discomfort or air hunger. Consider restarting diuretic for symptomatic relief of dyspnea associated with pulmonary edema. Discontinued her atorvastatin. Continue other medications for now that contribute to comfort. Recommend discontinuing warfarin at time of discharge. -DPOA/Advanced Directives/POLST-- completed new POLST last week consistent with DO NOT RESUSCITATE/DO NOT INTUBATE/Comfort Care/antibiotics for comfort okay/no artificial nutrition. Hospice will follow after discharge- still to be determined whether she will be returning to her fdc facility versus SNF. Case management/discharge planning continues to work on options. Patient Goals: 1. Patient and family want to be told the truth about her illness, even if it is unpleasant. 2. Patient and family would like to be told prognosis when it can be predicted, to better guide treatment decisions. 3. Patient would choose quality of life over quantity of life, and defines quality as being with her and pets, and not having to return to the hospital for further care. Additional Medical Diagnoses with primary management by Hospitalist team include : Acute dyspnea and possible acute hypoxic respiratory failure, present on admission. improving # Acute RSV infection # Possible acute on chronic heart failure with preserve EF. # Possible acute asthma exacerbation # Acute kidney injury with CKD. poa. # Atrial fibrillation, chronic. Stable # Hyperbilirubinemia, chronic. Stable # History of valve replacement # Diabetes Mellitus Type 2. # Hyperlipidemia # Insomnia, chronic. stable # Hypertension # 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 Problems: End of Life Preferences DNR/DNI/engaging with hospice for care at her fdc home or SNF Goals of Care Patient has repeatedly expressed to family members that she wants to stay home and be comfortable Disposition [facility]able return to [facility] versus SNF with hospice to follow Resuscitation Status Resuscitation Status: DNR/DNI:Do Not Resuscitate/Intubate (discussed and verified with patient and her daughter/POA) POLST Updates/Changes Previous POLST?: Yes POLST Last Review Date: Aug 18, 2016 Antibiotics: Determine Use or Limitations Artificially Admin Nutrition: No Artifical Nutrition by Tube POLST Discussed with: Health Care Agent ([facility]) POLST Review Outcome: New Form Completed (awaiting further review with patient and family regarding which version of her POLST she prefers) . Pain: None Symptom management: Dyspnea Total time 35 minutes; >50% face to face with patient , providing counselling regarding plans and recommendations, and in care coordination with her medical teams. copies to: Dianne Lofton PAC Palliative Brief Note Date of Service Aug 23, 2016 . Returned to reevaluate patient. Prior to visiting, reviewed her updated records in the EMR in detail. Spoke with her bedside nurse. On my arrival, she is lying in bed with head of bed elevated. Eyes are closed but when I call her name she answers questions appropriately. She denies any dyspnea, chest or abdominal pain, nausea or other problems. She does look to me like she is a little bit less alert today than when I saw her last on Tuesday, and appears to be slightly more dyspneic. On exam, her vital signs are noted. O2 sats remained good and stable. Intake/ output reviewed- overall positive. Skin is cool and dry. Head and neck exam without acute focal findings. Lungs with dependent crackles. No wheezes. Heart sounds regular. Abdomen rounded, soft, nontender. Extremities with trace edema. Laboratories reviewed in detail. This morning's labs are pending, but her creatinine yesterday was improved. Stefan Ruiz MD Aug 23, 2016 09:04
[2016-08-23 09:50] VITALS: PULSE 70; RESP 20; O2SAT 99
--- NOTE | 2016-08-23 10:16 | NUR ---
KATHLEEN: Patient unable to receive KATHLEEN. asked GENERAL OPERATIONS AGENT to follow up with Daughter via phone
--- NOTE | 2016-08-23 11:12 | NUR ---
Palliative Care Telephone Call08/23/1710:00AM This display card writer called and spoke briefly with pt.'s daughter, Zakiya, about plan for pt. to D/C from [facility] today to daughter's home with Hospice services to open between 2:00-3:00PM. Zakiya told this display card writer she was about to go meet with [facility] to arrange for additional in-home care support for both pt. and pt.'s who is also at [facility] and will discharge to Zakiya's house once medically stable. Zakiya shared she is feeling overwhelmed with all that is happening with both her parents. She asked if she could call this display card writer back after she met with [facility] staff and this display card writer provided the number to the Palliative Care office. TERESA Jeff, LORI Palliative Care Services Addendum: 08/23/16 at 1239 by LESLEY Nuñez Follow-up Note:08/23/1711:00PM This display card writer received call back from pt.'s daughter, Zakiya, who confirmed she is comfortable with plan for pt. to transfer to Zakiya's home today, leaving [facility] at 13:00 via BLS transport. Zakiya shared that Hospice DME was delivered this morning, and she knows [facility] staff will come to start Hospice services between 14:00-15:00 today. This display card writer let Zakiya know that Palliative Care has received a referral to help assess the needs of pt.'s , who is also at [facility]. Zakiya was told Palliative Care will work with her on determining goals of care for her father and Zakiya seemed comfortable with this. Lesley Nuñez MSW, [facility] Palliative Care Services
--- NOTE | 2016-08-23 11:19 | NUR ---
Arranged tentative BLS for 1300 via [facility], patient is to be returning daughter's home in [place] : [address] [place] [address]. PCS form completed and RN ORTHOPEDIC signed.
--- NOTE | 2016-08-23 12:06 | DRSVH ---
PROCEDURE: X-RAY CHEST ONE VIEW, PORTABLE ([id number]) INDICATIONS: LEUKOCYTOSIS TECHNIQUE: One view of the chest was acquired. COMPARISON: [facility], CR, XR CHEST 1VW (PORTABLE), 08/18/2016, 2:40. FINDINGS: Surgical changes and devices: Post median sternotomy. Stable positioning of left cardiac pacemaker. Lungs and pleura: Small pleural effusions present, right greater than left and persistent bibasilar airspace opacities redemonstrated. Interval increase in airspace opacity within the right upper lobe . No pneumothorax. Mediastinum: Mediastinal contours appear normal. Heart size is normal. Mitral annular calcificatio n. Bones and chest wall: No suspicious bony lesions. Overlying soft tissues appear unremarkable. IMPRESSION: 1. Bilateral pleural effusions, right greater than left and persistent bibasilar as well as new airsp abi opacity involving the right upper lobe suspicious for bilateral pneumonia. Dictated by: Amos MONTES Interpreted: Dayanara Mullen MD on 08/23/2016 at 11:54 Transcribed by: ARNIE on 08/23/2016 at 15:05 Approved by: Dayanara Mullen M.D. on 08/23/2016 at 16:35
--- NOTE | 2016-08-23 12:06 | PCM.DIMED ---
Discharge Instructions Date of Service Aug 23, 2016 Dates of Hospitalization Aug 15, 2016 at 05:59 Discharge Diagnosis Discharge Diagnosis # Acute dyspnea and possible acute hypoxic respiratory failure, present on admission. improving - due to acute diastolic CHF and possible acute asthma exacerbation due to acute RSV infection # Acute RSV infection # Possible acute on chronic heart failure with preserve EF. # Possible acute asthma exacerbation # Acute kidney injury with CKD. poa. # Atrial fibrillation, chronic. Stable # Hyperbilirubinemia, chronic. Stable # History of valve replacement # Diabetes Mellitus Type 2. # Hyperlipidemia # Insomnia, chronic. stable # Hypertension Diet No restrictions Activity No restrictions Call your provider Other (call your hospice provider with any questions ) Patient Instructions You were hospitalized due to heart failure and asthma exacerbation. You have been treated with diuretics and steroid.You are being discharged on hospice. You can continue Lasix 20 mg by mouth daily for comfort measures. We have stopped your warfarin. Please follow-up with hospice provider. Follow-up plan Please follow-up with hospice provider. Follow-up Provider: Dianne Lofton Follow-up with PCP in: 1 week Provider: ROSAURA GORDON Follow-up in: 1 week Kei Ambriz MD Aug 23, 2016 12:06
--- NOTE | 2016-08-23 12:22 | NUR ---
Social Work Discharge: SW acknowledged order for discharge. Patient from [facility], . SW spoke to [facility] rep Leslie who states that patient not accepted back upon discharge at this time. SW spoke to patient daughter Zakiya, [phone] who was advised and states plan as home with hospice services via [facility], [phone]. SW spoke with [facility] rep Romain who states that patient set to open with services today at 2-3pm. Patient daughter met with [facility] for additional support for patient at home. Patient daughter to care for patient needs at home. Daughter in agreement to transfer today and states all equipment has been delivered home. UR specialist coordinated transport for transfer home to daughters home at [address] [place] [address] via [facility]. No other needs identified at this time. SW to follow. PLAN: Home today via [facility] services. Transport cone picker at 1pm today. Hospice to open services from 2-3 today. No other needs Aleks MOORE
--- NOTE | 2016-08-23 12:31 | PCM.DC.MED ---
Discharge Summary Date of Service Aug 23, 2016 Dates of Hospitalization Date of Hospital Admission Aug 15, 2016 at 05:59 Date of Discharge: Aug 23, 2016 Providers: Admitting Physician: Evelio Mendez MD Primary Care Physician: Dianne Lofton Attending Physician: Evelio Mendez MD Diagnosis at Time of Discharge Diagnosis at Time of Discharge # Acute dyspnea and possible acute hypoxic respiratory failure, present on admission. improving - due to acute diastolic CHF and possible acute asthma exacerbation due to acute RSV infection # Acute RSV infection # Possible acute on chronic heart failure with preserve EF. # Possible acute asthma exacerbation # Acute kidney injury with CKD. poa. # Atrial fibrillation, chronic. Stable # Hyperbilirubinemia, chronic. Stable # History of valve replacement # Diabetes Mellitus Type 2. # Hyperlipidemia # Insomnia, chronic. stable # Hypertension Consultations Cardiology Dr Newby palliative Dr Ruiz Procedures XRay, CTs & MRIs Date of Service: 08/15/16 1015 PROCEDURE: X-RAY CHEST, TWO VIEWS ([id number]) IMPRESSION: Improved bibasilar opacities since 08/13/16 Dictated by: Kenneth Aburto M.D. on 08/15/2016 at 11:17 Approved by: Kenneth Aburto M.D. on 08/15/2016 at 11:21 ECG 12 Lead V paced at 70 Brief History 89 year old female with a history of HTN, CHF, DM and renal disease presenting to the ED via EMS in reported respiratory distress. She lives in [facility]. She was in the ED on 08/13/11 at which time her workup was fairly unremarkable. She was apparently suspected of having pneumonia but it's not clear if she was started on Abx or not and was discharged back home at that time. Today patient reports having ongoing shortness of breath for the past several months that has been worse over the past few days associated with cough, rhinorrhea, subjective fever, chills and generalized malaise. She says she is generally tired of living and wishes she could soon. She otherwise denies any specific pain. She has had an intractable cough for 4-6 months but much worse the past 4-6 weeks. No sputum production, fever or chills. She has SOB at rest and SOB walking to her mailbox at [facility] She is followed by Dianne STEWART as PCP and Dr. Winter- cardiology. She has been living at [facility] with her who has some dementia and is assisted by her children -1 daughter and 2 sons. She has has multiple medical encounters-- ER or hospitalizations over the last month or 2 with hosp 07/20 ER for edema, 07/24- for CHF. 07/28 ER and then again 08/13. Hospital Course 89 year old female with a history of CHF on Lasix, DM, HTN, hyperlipidemia, and afib anticoagulated on warfarin brought to the ED by EMS with report of shortness of breath and generalized malaise. # Acute dyspnea and possible acute hypoxic respiratory failure, present on admission. improving - due to acute diastolic CHF and possible acute asthma exacerbation due to acute RSV infection - Treated with Duo-Neb and Albuterol prn , IV Solu-Medrol on admission, now transitioned to oral therapy (Prednisone) - Weening O2 as tolerated, -Patient is being discharged on hospice care. Continue home torsemide 20 mg by mouth daily for comfort . # Acute RSV infection - care as noted above # Possible acute on chronic heart failure with preserve EF. - Echo less than one month ago showed hyperdynamic heart, EF >80% with concentric LV, pacer, bioprosthetic mitral valve, and dilated right heart - Echo on admission continued to support heart failure with elevated right sided pressures. -Patient is being discharged on hospice care. Continue home torsemide 20 mg by mouth daily for comfort # Possible acute asthma exacerbation - plan as noted above # Acute kidney injury with CKD. poa. improving while off of diuretics over past couple of days. - Pt has history of CKD, baseline Cr appears to be 1 - 1.05. -Patient is being discharged on hospice care. Continue home torsemide 20 mg by mouth daily for comfort # Atrial fibrillation, chronic. Stable -dc metoprolol and warfarin,hospice care # Hyperbilirubinemia, chronic. 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 - discontinue warfarin ,pt on hospice # Diabetes Mellitus Type 2. # Hyperlipidemia - Statins discontinued due to patient's transitioned to comfort care, # Insomnia, chronic. stable # Hypertension - Stable # 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 - Comfort is patient's main concern at this time given end-stage heart and lung disease. , Dispo: Patient will be discharged on hospice care, Exam Vital Signs (Last) Date Time Temp Pulse Resp B/P Pulse Ox O2 Delivery O2 Flow Rate FiO2 08/23/16 09:50 70 20 99 Nasal Cannula 2.00 08/23/16 06:06 35.8 124/75 Exam General: Alert, Cooperative, She is oriented, stable mentation, baseline dementia. Mouth: Mucous Membranes Moist/Bly Chest & Lungs: Coarse breath sounds,Difuse wheezing with inspiration/expiration , diminished breath sounds in lung bases as well. Heart: Regular rate Extremities: No cyanosis/clubbing/edema bilat Test 08/15/16 11:40 08/15/16 13:44 08/16/16 05:25 08/18/16 15:25 Activated Partial Thromboplast Time 33.8sec (22.8-33.0) Hemoglobin A1c 6.6% (4.8-5.6) Thyroid Stimulating Hormone (TSH) 2.530uIU/mL (0.450-4.500) Urine Color Yellow (YELLOW) Urine Appearance Clear (CLEAR,HAZY) Urine pH 5.0 (5.0-8.0) Urine Specific [place] 1.025 (1.003-1.035) Urine Protein Tracemg/dL (NEG,TRACE) Urine Glucose (UA) Negativemg/dL (NEGATIVE) Urine Ketones Negativemg/dL (NEGATIVE) Urine Occult Blood Negative (NEGATIVE) Urine Nitrite Negative (NEGATIVE) Urine Bilirubin Negative (NEGATIVE) Urine Urobilinogen Normalmg/dL (NORMAL) Urine Leukocyte Esterase Negative (NEGATIVE) Urine RBC 0-2/hpf (0-2) Urine WBC 0-5/hpf (0-5) Urine Epithelial Cells None/hpf (NONE-MOD) Urine Crystals None seen (NONE SEEN) Urine Bacteria None/hpf (NONE-FEW) Urine Hyaline Casts None/lpf (NONE) Urine Granular Casts None seen (NONE SEEN) Urine Waxy Casts None seen (NONE SEEN) Urine Red Blood Cell Casts None seen (NONE SEEN) Urine White Blood Cell Casts None seen (NONE SEEN) Urine Mucus None seen (None Seen) Urine Trichomonas None seen (NONE SEEN) Urine Yeast None (NONE SEEN) Urinalysis Comment None Urine Culture Reflexed Not indicated Pro-B-Type Natriuretic Peptide 9146pg/mL (0-738) Troponin T < 0.010ug/L (0.0-0.011) Test 08/23/16 08:12 White Blood Count 15.4th/mm3 (3.8-10.1) Red Blood Count 5.40mil/mm3 (3.90-5.20) Hemoglobin 14.8g/dL (12.0-15.6) Hematocrit 47.5% (35.0-46.0) Mean Corpuscular Volume 88.0fL (81-100) Mean Corpuscular Hemoglobin 27.4pg (27.0-35.0) Mean Corpuscular Hemoglobin Concent 31.2% (32.0-37.0) Red Cell Distribution Width 15.6% (12.3-15.4) Platelet Count 262bil/L (150-400) Neutrophils (%) (Auto) 80.7% (40-74) Lymphocytes (%) (Auto) 4.0% (14-46) Monocytes (%) (Auto) 13.8% (4-12) Eosinophils (%) (Auto) 0.4% (0-5) Basophils (%) (Auto) 0.3% (0-3) Prothrombin Time 11.2sec (8.1-12.5) Prothromb Time International Ratio 1.05ratio Sodium Level 135mEq/L (134-144) Potassium Level 5.7mEq/L (3.5-5.2) Chloride Level 94mEq/L (97-108) Carbon Dioxide Level 35mmol/L (18-29) Blood Urea Nitrogen 33mg/dL (8-27) Creatinine 0.90mg/dL (0.57-1.00) Estimat Glomerular Filtration Rate 84mL/min (>59) Glucose Level 214mg/dL (60-99) Calcium Level 9.1mg/dL (8.5-10.1) Phosphorus Level 3.2mg/dL (2.5-4.9) Magnesium Level 2.3mg/dL (1.6-2.6) Total Bilirubin 1.5mg/dL (0.0-1.2) Aspartate Amino Transf (AST/SGOT) 27U/L (0-50) Alanine Aminotransferase (ALT/SGPT) 33U/L (0-32) Alkaline Phosphatase 71U/L (25-165) Total Protein 5.8g/dL (6.4-8.4) Albumin 3.2g/dL (3.4-5.0) Procalcitonin 0.08ng/mL (0.00-0.08) Discharge Medications Discharge Medications Torsemide (Demadex) 20 Mg Tablet 20 MG PO DAILY Prescribed by: YENI BELCHER, DO As needed diphenhydrAMINE HCl (Benadryl) 25 Mg Capsule 12.5 MG PO HS PRN PRN (Reported) Followup Plan Disposition: hospice at SNF Follow-up plan Please follow-up with hospice provider. Discharge Diet: No restrictions Discharge Activity: No restrictions Patient Instructions You were hospitalized due to heart failure and asthma exacerbation. You have been treated with diuretics and steroid.You are being discharged on hospice. You can continue Lasix 20 mg by mouth daily for comfort measures. We have stopped your warfarin. Please follow-up with hospice provider. Follow-up Provider: Dianne Lofton Follow-up with PCP in: 1 week Provider: ROSAURA GORDON Follow-up in: 1 week Time spent 35 minutes coordinating discharge copies to: Dianne Lofton Melaku MD Aug 23, 2016 12:31
--- NOTE | 2016-08-23 13:21 | NUR ---
Discharge Discharge to [facility] with Hospice services. Pt cleaned and gowned. brought up from 2nd floor via RT and sitter to visit. Report given to transport staff. Pt escorted off floor via gurney and transport team on 2L 02 with all belongings including insulin and glasses.
--- NOTE | 2016-08-27 14:09 | NUR ---
Faxed discharge information to [facility] per RN request. [phone]
== END 2016-08-23 13:08 | disposition hospice, home (50) | DRG 291 ==
LOC: SED 01:11 → MPC 05:59 → OBSVTOIN 05:59 → MPC 06:21
PROVIDERS: ADMIT Hospitalist; ATTEND Hospitalist
PROC: 4A033R1 Measurement of Arterial Saturation, Peripheral, Percutaneous Approach (ICD-10-PCS; principal; 2016-08-18)
DX: I50.33 Acute on chronic diastolic (congestive) heart failure (principal); J96.21 Acute and chronic respiratory failure with hypoxia; J45.901 Unspecified asthma with (acute) exacerbation; N17.9 Acute kidney failure, unspecified; C85.90 Non-Hodgkin lymphoma, unspecified, unspecified site; B97.4 Respiratory syncytial virus as the cause of diseases classified elsewhere; Z79.82 Long term (current) use of aspirin; Z79.01 Long term (current) use of anticoagulants; I48.2 Chronic atrial fibrillation; Z95.2 Presence of prosthetic heart valve; N18.9 Chronic kidney disease, unspecified; E11.9 Type 2 diabetes mellitus without complications; E78.5 Hyperlipidemia, unspecified; Z66 Do not resuscitate; Z51.5 Encounter for palliative care; Z79.84 Long term (current) use of oral hypoglycemic drugs